=== PATIENT | female | born 1965 ===

== ENCOUNTER → 2019-06-10 13:41 | Outpatient (BNVA) | payer OTHER, SELFPAY | PROVIDERS: Family Provider Internal Medicine; PCP Internal Medicine; Visit Provider Counselor Professional | DX: F31.75 Bipolar disorder, in partial remission, most recent episode depressed; F43.12 Post-traumatic stress disorder, chronic | CPT/HCPCS: 90834 ==

== ENCOUNTER 2019-06-30 14:38 | Outpatient (CLI) | payer OTHER, SELFPAY ==
--- NOTE | 2019-06-30 14:51 | US_ITS ---
WS: [id number] INDICATION: Wilcox's neuroma TECHNIQUE: Ultrasound soft tissue FINDINGS: Hypoechoic 4.6 x 4.0 x 4.3 mm solid-appearing nodule between the third and fourth digits ri ght foot. Findings most likely represent Wilcox's neuroma. US/US soft tissue/extremity 97299 IMPRESSION: Suspected 4.6 mm Wilcox's neuroma between the third and fourth digi ts
== END 2019-06-30 14:39 | disposition home or self-care (01) ==
LOC: RAD 14:41
PROVIDERS: Family Provider Internal Medicine; PCP Internal Medicine; Visit Provider Podiatrist Foot & Ankle Surgery
DX: G57.61 Lesion of plantar nerve, right lower limb (principal); M79.671 Pain in right foot
CPT/HCPCS: 76882

== ENCOUNTER → 2019-07-04 14:42 | Outpatient (BNVA) | payer OTHER, SELFPAY | PROVIDERS: Family Provider Internal Medicine; PCP Internal Medicine; Visit Provider Counselor Professional | DX: F31.32 Bipolar disorder, current episode depressed, moderate (principal); F43.12 Post-traumatic stress disorder, chronic | CPT/HCPCS: 90834 ==

== ENCOUNTER 2019-07-05 16:31 | Outpatient (CLI) | payer OTHER, SELFPAY | END 2019-07-05 16:32 | disposition home or self-care (01) | LOC: SPT 16:32 | PROVIDERS: Family Provider Internal Medicine; PCP Internal Medicine; Visit Provider Podiatrist Foot & Ankle Surgery | DX: G57.61 Lesion of plantar nerve, right lower limb (principal) | CPT/HCPCS: L4361 ==

== ENCOUNTER → 2019-07-08 13:44 | Outpatient (BNVA) | payer OTHER, SELFPAY | PROVIDERS: Family Provider Internal Medicine; PCP Internal Medicine; Visit Provider Nurse Practitioner | DX: F43.12 Post-traumatic stress disorder, chronic (principal); F31.75 Bipolar disorder, in partial remission, most recent episode depressed | CPT/HCPCS: 99214 ==

== ENCOUNTER 2019-07-29 05:41 | Day surgery (SDC) | payer OTHER, SELFPAY ==
[2019-07-28 12:28] VITALS: BMI 26.1
[2019-07-29 06:02] VITALS: BP 139/86; PULSE 69; RESP 18; TEMP 36.4; O2SAT 98
--- NOTE | 2019-07-29 06:17 | ANES.PREANE2 ---
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 Proposed Procedure: Operation Date: 07/29/19 07:00 Proposed Procedures p Excision Wilcox's Neuroma Right 3rd intermetatrsal 94550 G57.61(Right) - Telly Mccormack DPM Familial anesthetic complications: PONV, has had to be admitted overnight because it takes her a long time to wake up from anesthesia Was Beta Sebastien taken within 24 hours: N/A Last intake: Intake NPO > 8 hrs Last Liquid Date 07/28/19 Last Solid Date 07/28/19 Social: Social History: No alcohol and No tobacco Exam: Pre-Anes Outpt Exam: alert, oriented x 3, clear to auscultation bilaterally and regular rate & rhythm Airway: Cervical ROM: WNL MP: 4 Dentition: Full Pulmonary: Pulmonary: None reported CV/HEM: CV/HEM: None reported : : None reported Hepatic: Hepatic: None reported GI: GI: None reported Metabolic: Metabolic: None reported Musc/skel: Comments: tender spot (neuroma) on R foot 3rd metatarsal Neuropsych: Neuropsych: None reported Anesthetic Plan: ASA status: 1 Anesthesia: General and Choice PFSH Anesthesia PFSH: Social History Smoking and tobacco status: former smoker Alcohol intake: never Marital status: Current occupational status: employed Current occupation: [employer] Data Anesthesia Cardiac Studies: No Data to Display
[2019-07-29] MEDS: sodium chloride 0.9% 1,000 ML 30 ML IV (06:23)
--- NOTE | 2019-07-29 06:29 | P.HPUD_ITS ---
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
[2019-07-29] MEDS: scopolamine 1.5 Patch 1 PATCH TRANSDERMA (06:31)
[2019-07-29 07:46] VITALS: BP 120/90; PULSE 69; RESP 18; TEMP 36.4; O2SAT 97
[2019-07-29 08:19] VITALS: BP 143/74; PULSE 69; RESP 18; TEMP 36.4; O2SAT 100
--- NOTE | 2019-07-29 09:55 | PM.OP ---
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 CPT codecpt 17908 Implants: None Specimens removed/disposition: None Pathology: none sent Surgeon: Telly Mccormack D.P.M. Anesthesia: MAC Estimated blood loss: 2 mL Tourniquet time: See intraoperative report IV fluids: None Urine output: None Complications: None Findings: See report Condition: stable Disposition: PACU Brief History: Ms. Connelly is a pleasant 54-year-old female with persistent pain at right foot third intermetatarsal space consistent with Wilcox's neuroma clinically, abnormal findings on ultrasound suggestive of possible Wilcox's neuroma. Conservative care was exhausted consisting of stretching exercises, supportive shoes with wide accommodative toe box, power step orthotics, oral and local steroids and metatarsal pad without relief. Patient wishes to pursue Wilcox's neuroma excision risks include pain, bleeding, numbness, infection, failure to alleviate pain, damage to adjacent soft tissue structures and need for further surgical intervention. She is agreeable wishes to proceed. Obtained written and verbal consent signed right foot preoperatively. Procedure: Under mild sedation the patient was brought to the operating room and placed on the operating table in supine position. A timeout was performed. Anesthesia was administered by anesthesia service. Local anesthesia was injected by myself consisting of 20 cc of 0.5% Marcaine plain and a third ray block. Well-padded pneumatic tourniquet was applied to the right ankle. The right lower extremity was scrubbed, prepped and draped utilizing normal aseptic technique. Right foot was examined a weighted with an Esmarch bandage and a tourniquet was inflated to 250 mmHg. Attention was directed to the right dorsal foot at the third intermetatarsal space where a linear longitudinal incision was made at the webspace coursing proximally with a #15 blade down through skin and dissection carried through subcutaneous tissue utilizing a combination of blunt and sharp technique. Care was taken to retract and preserve neurovascular tendinous structures. Bleeders were ligated and cauterized as necessary. Common third intermetatarsal plantar nerve was identified and noted to be normal appearance without bulbous thickening consistent with neuroma, the also dorsal nerve to this intermetatarsal space was also identified without pathological findings, bifurcation appeared normal as it progressed distally to the digits medially at the fourth toe and laterally at the third toe. Decision was made to not transect the nerve however the intermetatarsal space was compressed, nerves were carefully mobilized and protected followed by a decompression of the third intermetatarsal space with release of the deep transverse intermetatarsal ligament between the third and fourth metatarsal heads with a #15 blade with adjacent soft tissue structures being protected during release. No further pathology found or appreciated. Incision site was flushed with copious amounts of sterile saline solution. Deep structures were reapproximated utilizing 3-0 Vicryl. Subcutaneous tissue also reapproximated utilizing Vicryl. Skin closed with 4-0 nylon. Prior to skin closure subcutaneous tissue was injected utilizing Exparel total of 10 mL utilizing standard technique per physical chemistry professor recommendation. Incision site was dressed with Adaptic, sterile 4 x 4's, Kerlix and Jaspal wrap. Cam boot was applied. Tourniquet was deflated and a prompt hyperemic response was noted to all digits of the right foot distally. Patient tolerated the procedure well and was transferred to the PACU with vital signs stable vascular status intact. Following a period of postoperative monitoring she will be discharged home may be limited weightbearing is to elevate her right foot at all times while at rest. Was prescribed hydrocodone to be taken judiciously as needed for pain. Follow-up in 1 week for nurse visit and dressing change. She is provided my cell phone number and is to contact me with any postoperative questions or concerns.
== END 2019-07-29 10:15 | disposition home or self-care (01) ==
PROVIDERS: Family Provider Internal Medicine; PCP Internal Medicine; Visit Provider Podiatrist Foot & Ankle Surgery
PROC: (CPT 28080; principal; 2019-07-29 07:00)
DX: G57.61 Lesion of plantar nerve, right lower limb (principal); Z87.891 Personal history of nicotine dependence
CPT/HCPCS: 64704; 12345; C9290; J0690; J1100; J2001; J2250; J2405; J2704; J2765; J3010; J3490; J7030

== ENCOUNTER → 2019-08-17 13:43 | Outpatient (BNVA) | payer OTHER, SELFPAY | PROVIDERS: Family Provider Internal Medicine; PCP Internal Medicine; Visit Provider Nurse Practitioner | DX: F31.75 Bipolar disorder, in partial remission, most recent episode depressed (principal); F43.12 Post-traumatic stress disorder, chronic | CPT/HCPCS: 99213 ==

== ENCOUNTER → 2019-09-13 13:54 | Outpatient (BNVA) | payer OTHER, SELFPAY | PROVIDERS: Family Provider Internal Medicine; PCP Internal Medicine; Visit Provider Counselor Professional | DX: F31.75 Bipolar disorder, in partial remission, most recent episode depressed (principal) | CPT/HCPCS: 90832 ==

== ENCOUNTER 2019-10-07 13:37 | Outpatient (CLI) | payer OTHER, SELFPAY ==
--- NOTE | 2019-10-07 13:47 | MM_ITS ---
WS: [id number] DIAGNOSTIC LEFT DIGITAL MAMMOGRAM WITH CAD LEFT breast ultrasound, limited HISTORY: BREAST PAIN BREAST LUMP COMPARISON: 03/21/2019, 09/03/2018, 05/11/2018, 05/16/2016 Technique: CC, MLO and ML views. Spot compression LEFT MLO and cc. Breast composition: The breasts are heterogeneously dense, which may obscure small masses. Biopsy cl ip 3:00 axis of the LEFT breast at the site of the prior biopsy. Triangular marker is placed at the 2 :00 axis anteriorly. There is some underlying soft tissue thickening and mild distortion. Soft tissue thickening and distortion does not persist on the compression views. There is very dense fibroglandu lar breast density at this location. Ultrasound to follow. LEFT breast ultrasound, limited. Ultrasound is directed to 10:00 at 4 cm from the nipple. This is the area of pain. There is a soft ti ssue nodule of mixed echogenicity lesion 1.3 x 1.0 x 1.1 cm. This nodule is 4 cm from the nipple with no significant increased vascularity. Nodule is similar to the prior study of 03/21/2019 and 09/04/19 19. This nodule was biopsied on 09/21/2018 and was benign. MM/[place] [id number] IMPRESSION: BI-RADS: 2-Benign FOLLOW UP: 1 Year Follow-up Patient to return for annual screening mammography and March 2020. As this breast nodule continues to cause pain consider surgical removal for lexis luation of the entire lesion.
--- NOTE | 2019-10-07 13:59 | US_ITS ---
WS: [id number] DIAGNOSTIC LEFT DIGITAL MAMMOGRAM WITH CAD LEFT breast ultrasound, limited HISTORY: BREAST PAIN BREAST LUMP COMPARISON: 03/21/2019, 09/03/2018, 05/11/2018, 05/16/2016 Technique: CC, MLO and ML views. Spot compression LEFT MLO and cc. Breast composition: The breasts are heterogeneously dense, which may obscure small masses. Biopsy cl ip 3:00 axis of the LEFT breast at the site of the prior biopsy. Triangular marker is placed at the 2 :00 axis anteriorly. There is some underlying soft tissue thickening and mild distortion. Soft tissue thickening and distortion does not persist on the compression views. There is very dense fibroglandu lar breast density at this location. Ultrasound to follow. LEFT breast ultrasound, limited. Ultrasound is directed to 10:00 at 4 cm from the nipple. This is the area of pain. There is a soft ti ssue nodule of mixed echogenicity lesion 1.3 x 1.0 x 1.1 cm. This nodule is 4 cm from the nipple with no significant increased vascularity. Nodule is similar to the prior study of 03/21/2019 and 09/04/19 19. This nodule was biopsied on 09/21/2018 and was benign. US/US breast LT limited* [id number] IMPRESSION: BI-RADS: 2-Benign FOLLOW UP: 1 Year Follow-up Patient to return for annual screening mammography and March 2020. As this breast nodule continues to cause pain consider surgical removal for lexis luation of the entire lesion.
== END 2019-10-07 13:38 | disposition home or self-care (01) ==
LOC: RADSHAW 13:41
PROVIDERS: Family Provider Internal Medicine; PCP Internal Medicine; Visit Provider Nurse Practitioner Family
DX: N64.4 Mastodynia (principal); R92.8 Other abnormal and inconclusive findings on diagnostic imaging of breast; N63.0 Unspecified lump in unspecified breast
CPT/HCPCS: 76642; 77065

== ENCOUNTER → 2019-10-17 08:20 | Outpatient (BNVA) | payer OTHER, SELFPAY | PROVIDERS: Family Provider Internal Medicine; Visit Provider Nurse Practitioner | DX: F43.12 Post-traumatic stress disorder, chronic (principal); F31.75 Bipolar disorder, in partial remission, most recent episode depressed | CPT/HCPCS: 99214 ==

== ENCOUNTER → 2019-10-21 08:07 | Outpatient (BNVA) | payer OTHER, SELFPAY | PROVIDERS: Family Provider Internal Medicine; Visit Provider Counselor Professional | DX: F31.75 Bipolar disorder, in partial remission, most recent episode depressed (principal) | CPT/HCPCS: 90832 ==

== ENCOUNTER → 2019-11-23 07:41 | Outpatient (BNVA) | payer OTHER, SELFPAY | PROVIDERS: Family Provider Internal Medicine; Visit Provider Nurse Practitioner | DX: F31.75 Bipolar disorder, in partial remission, most recent episode depressed (principal); F43.12 Post-traumatic stress disorder, chronic | CPT/HCPCS: 99214 ==

== ENCOUNTER → 2019-11-25 07:58 | Outpatient (BNVA) | payer OTHER, SELFPAY | PROVIDERS: Family Provider Internal Medicine; Visit Provider Counselor Professional | DX: F31.75 Bipolar disorder, in partial remission, most recent episode depressed (principal); F43.12 Post-traumatic stress disorder, chronic | CPT/HCPCS: 90832 ==

== ENCOUNTER 2019-11-29 12:45 | Outpatient (CLI) | payer OTHER, SELFPAY ==
[2019-11-29] MEDS: iohexol 300 mg/mL 50 mL Btl PO (13:22)
[2019-11-29] MEDS: iohexol 300 mg/mL 100 mL Btl IV (13:59)
--- NOTE | 2019-11-29 14:30 | CT_ITS ---
WS: [id number] CT ABDOMEN PELVIS TECHNIQUE: Contrast-enhanced CT of the abdomen and pelvis with coronal and sagittal reformatted image s. CLINICAL INFORMATION: ABDOMINAL WALL BULGE COMPARISON: October 05, 2014 DLP: 1087.[address] scans at [facility] use at least one of these dose optimization techniques: automat ed exposure control; mA and/or kV adjustment per patient size (includes targeted exams where dose is matched to clinical indication); or iterative reconstruction. FINDINGS: Mild diffuse fatty infiltration of the liver. Portal vein and splenic vein are patent. Cholecystectom y clips. Normal spleen. Normal pancreas. Pancreas appears normal. Mild prominence of the common bile duct likely physiologic postcholecystectomy. Adrenal glands are normal. Normal renal parenchymal enha ncement. No hydronephrosis. Lung bases are well aerated. Normal caliber abdominal aorta. Mild sigmoid constipation. Fat-containing supraumbilical epigastric h ernia. Small Fat-containing umbilical hernia. No herniated bowel. No abdominal or pelvic lymphadenopa thy. Prior hysterectomy. CT/CT abdomen pelvis w con* [id number] IMPRESSION: 1. Mild diffuse fatty infiltration of the liver. 2. Prior cholecystectomy. 3. No hydronephrosis in either kidney. 4. Fat-containing supraumbilical epigastric hernia with hernia mouth opening m easuring 1.5 cm. No herniated bowel. 5. Incidental supraumbilical fat-containing hernia. 6. No abdominal or pelvic lymphadenopathy. 7. Mild sigmoid constipation. 8. Prior hysterectomy.
== END 2019-11-29 12:46 | disposition home or self-care (01) ==
PROVIDERS: Family Provider Internal Medicine; PCP Internal Medicine; Visit Provider Surgery
DX: R19.00 Intra-abdominal and pelvic swelling, mass and lump, unspecified site (principal); K76.0 Fatty (change of) liver, not elsewhere classified; K43.9 Ventral hernia without obstruction or gangrene; K59.00 Constipation, unspecified
CPT/HCPCS: 74177; Q9967

== ENCOUNTER 2019-12-13 06:57 | Day surgery (SDC) | payer OTHER, SELFPAY ==
[2019-12-13] VITALS (10 sets, daily range): BP systolic 105–148; BP diastolic 54–88; PULSE 62–89; RESP 16–21; TEMP 36.6–37.1; O2SAT 92–100
--- NOTE | 2019-12-13 07:41 | W.PM.OPSUD ---
Surgery/Procedure H&P Update DATE OF PROCEDURE: December 13, 2019 DATE H&P PERFORMED: 12/01/19 H&P UPDATE INFORMATION: I have reviewed H&P completed within last 30 days, I have examined patient prior to procedure and No changes to prior documentation PREOP DIAGNOSIS: Ventral hernia PRIMARY INDICATION FOR PROCEDURE: The same PLANNED PROCEDURE: Operation Date: 12/13/19 08:30 Proposed Procedures p Ventral Hernia Repair (Open) w/ Mesh/61012 K43.9(Not Applicable) - Tai Kohler MD
[2019-12-13] MEDS: sodium chloride 0.9% 1,000 ML 30 ML IV (07:43)
--- NOTE | 2019-12-13 07:51 | P.ANESASSM_ITS ---
Pre-Anesthetic Assessment Pre-Anesthetic Assessment: Height/Weight: Height 1.47 m Weight 58.967 kg Temp Pulse Resp BP Pulse Ox 98.5 F 74 16 148/88 98 12/13/19 07:18 12/13/19 07:18 12/13/19 07:18 12/13/19 07:18 12/13/19 07:18 Preop Diagnosis: Ventral hernia Proposed Procedure: Operation Date: 12/13/19 08:30 Proposed Procedures p Ventral Hernia Repair (Open) w/ Mesh/62560 K43.9(Not Applicable) - Tai Kohler MD Was Beta Sebastien taken within 24 hours: N/A Last intake: Intake Last Liquid Date 12/12/19 Last Liquid Time 20:00 Last Solid Date 12/12/19 Last Solid Time 09:00 Social: Social History: No alcohol and No tobacco Exam: Pre-Anes Outpt Exam: alert, oriented x 3, clear to auscultation bilaterally and regular rate & rhythm Airway: Submandibular: WNL Cervical ROM: WNL MP: 2 Dentition: False History/ROS: No significant history except as noted Pulmonary: Pulmonary: None reported CV/HEM: CV/HEM: None reported : : None reported Hepatic: Hepatic: None reported GI: GI: None reported Metabolic: Metabolic: None reported Musc/skel: Musc/skel: None reported Neuropsych: Neuropsych: Anxiety, Bipolar and Depression Anesthetic Plan: ASA status: 2 Anesthesia: Anesthesia Evaluation and General Risk of > 500 ml blood loss (7ml/kg in children): No Meds/Allergies Current Medications: Current Medications Generic Name Dose Route Start Last Admin Trade Name Freq PRN Reason Stop Dose Admin Sodium Chloride 1,000 mls @ 30 ml s/hr 12/13/19 07:20 12/13/19 07:43 Sodium Chloride 0.9% IV 12/14/19 07:19 30 mls/hr .Q24H PEDRO Administration PFSH Anesthesia PFSH: Medical History Abdominal wall bulge Bipolar disorder, in partial remission, most recent episode depressed Post-traumatic stress disorder, chronic Surgical History H/O foot surgery History of delivery History of cholecystectomy History of hysterectomy History of tubal ligation Family History Sister Cancer Mother Diabetes Denies family history of Anesthesia complication Bleeding disorder Social History Smoking and tobacco status: former smoker Alcohol intake: never Household members: significant other Marital status: Current occupational status: employed Current occupation: [employer] History of recent travel: No Data Anesthesia Cardiac Studies: No Data to Display
[2019-12-13] MEDS: lidocaine 2% INJ 20 mL INJECTION (08:39)
[2019-12-13] MEDS: sodium chloride 0.9% SDV 10 mL 40 ML (09:02)
--- NOTE | 2019-12-13 09:14 | PM.OP ---
Operative Report Date of procedure: December 13, 2019 Pre-op Diagnosis: Ventral hernia Post-op diagnosis: same (Ventral Tongan cheese hernia) Procedure Done: Open ventral hernia repair primarily Specimens removed/disposition: Hernial sac and content Surgeon: Tai Kohler Chief Radiation Therapist: Surgical henrik Cameron Circulating nurses Juaquin Anesthesia: General (radiology assistant Anna) Estimated blood loss (mL): 10 IV fluids (mL): 1,000 Condition: stable Disposition: same day Brief History: This is a pleasant 54 years old female patient presented to my practice with symptomatic ventral hernia, I elected to send the patient for CT scan of the abdomen that showed 2 ventral hernias, after thorough history physical examination and reviewing the chart and images with my personal interpretation I did career and guidance counselor the patient for open hernia repair with possible mesh placement. Patient agreed to proceed Informed consent per chart Procedure: Patient was identified in holding area and the site of the hernia was marked by me ,Patient was brought then to the operating room, general endotracheal anesthesia was administered by the anesthesia provider.prophylactic IV antibiotics were given per protocol Time-out was done verifying the patient's name/date of /planned procedure and destination after the procedure, all were in agreement.SCDs confirmed to be functioning, preoperative antibiotics administered per protocol, and beta sari protocol was confirmed. Patient was given prophylactic heparin subcutaneous prior to surgery Prep and drape of the abdomen was done under the usual sterile technique. I started by Supraumbilical skin incision in a longitudinal fashion, I was able to identify the incarcerated Two ventral hernias and a smaller one caudad, dissection was carried all the way down to the fascia, hernia sac was then opened and the sac was excised in addition to excess omental tissues. Tissues excise sent for permanent pathology I was able to free the overlying fat on top of the fascia, facilitate primary closure,prior to that I did connect all defect so I can close one larger defect better. At that point the fascial defect was about 3 inches in diameter, after freeing all the adhesions, under direct visualization I was able to use loop PDS to repair the defect primarily,thorough irrigation of the wound was then achieved and hemostasis. Exparel was the injected. Bilateral TAP (transversus abdominous plain peripheral nerve block )block using Exparel 20 mL Exparel 40 ml Normal saline 20 ml bupivacaine 0.25% Followed by deep dermal interrupted stitches, followed by 2-0 Vicryl, then skin staple of the skin incision. Dry dressing was done Counts of sponges and instruments were completed at the end of the procedure Patient tolerated the procedure well and was taken to the recovery area in stable condition I was present for the whole entire procedure
[2019-12-13] MEDS: morphine 4 mg/mL SDV 1 mL 2 MG IVP (09:41)
--- NOTE | 2019-12-13 09:46 | SUR.PHASEI ---
0940 pt awake warm blankets x 4 to pt for shivering, pt c/o pain of 3 to abdd see med given, pt now on RA trial.
[2019-12-13] MEDS: HYDROcodone-acetaminophen 5-325 mg Tablet 1 TAB PO (10:20)
== END 2019-12-13 10:54 | disposition home or self-care (01) ==
PROVIDERS: PCP Internal Medicine; Visit Provider Surgery
PROC: 0WQF0ZZ Repair Abdominal Wall, Open Approach (ICD-10-PCS; CPT 49560; principal; 2019-12-13 08:20)
DX: K43.9 Ventral hernia without obstruction or gangrene (principal); Z87.891 Personal history of nicotine dependence
CPT/HCPCS: 49560; 12345; 88302; C9290; J0131; J0690; J2001; J2250; J2270; J2405; J2704; J2710; J3010; J3490; J7030

== ENCOUNTER → 2019-12-29 08:41 | Outpatient (BNVA) | payer OTHER, SELFPAY | PROVIDERS: Family Provider Internal Medicine; Visit Provider Nurse Practitioner | DX: F31.75 Bipolar disorder, in partial remission, most recent episode depressed (principal); F43.12 Post-traumatic stress disorder, chronic | CPT/HCPCS: 99213 ==

== ENCOUNTER → 2020-01-12 13:41 | Outpatient (BNVA) | payer OTHER, SELFPAY | PROVIDERS: Family Provider Internal Medicine; Visit Provider Psychiatry & Neurology Psychiatry | DX: F31.75 Bipolar disorder, in partial remission, most recent episode depressed (principal); Z03.89 Encounter for observation for other suspected diseases and conditions ruled out; F43.12 Post-traumatic stress disorder, chronic | CPT/HCPCS: 80053; 80183; 84443; 99214 ==

== ENCOUNTER → 2020-01-13 14:17 | Outpatient (BNVA) | payer OTHER, SELFPAY | PROVIDERS: Family Provider Internal Medicine; Visit Provider Psychiatry & Neurology Psychiatry | DX: F31.75 Bipolar disorder, in partial remission, most recent episode depressed (principal); Z03.89 Encounter for observation for other suspected diseases and conditions ruled out | CPT/HCPCS: 36415; 84439; 84445; 84480 ==

== ENCOUNTER → 2020-01-16 10:01 | Outpatient (BNVA) | payer OTHER, SELFPAY | PROVIDERS: Family Provider Internal Medicine; Visit Provider Psychiatry & Neurology Psychiatry | DX: F31.89 Other bipolar disorder (principal); F43.12 Post-traumatic stress disorder, chronic | CPT/HCPCS: 99213 ==

== ENCOUNTER 2020-01-21 14:29 | Emergency (ER) | payer OTHER, SELFPAY ==
[2020-01-21 14:47] VITALS: BP 163/90; PULSE 96; RESP 18; TEMP 36.9; O2SAT 96; BMI 27.8
--- NOTE | 2020-01-21 15:10 | W.ED.NEUROSD ---
HPI - Neuro Symptoms/Deficit General: Chief Complaint: Neuro Symptoms/Deficit Stated Complaint: cp Time Seen by Provider: 01/21/20 15:09 History of Present Illness: HPI Narrative: 54-year-old female comes in 6 she has not been feeling well she has left-sided facial numbness and left arm numbness that is been getting progressively worse and started about 2 weeks ago with chest pain she had facial numbness at that time as well explained slowly progressive since then. She is not noticed anything that exacerbates it or relieves it. She is also noticed some stuttering in her speech. She not previously had a stroke. Onset (ago): week(s) (2) Location: speech, left face and left arm History of same: Yes Severity: mild Quality: numb, tingling and intermittent Relieving factors: none Exacerbating factors: none Context: gradual onset Associated symptoms: Reports chest pain; Deny cough, diaphoresis, fevers/chills, headache(s), anorexia, malaise, nausea, seizures, short of breath, syncope, tingling, vertigo, vomiting or weakness Treatments Prior to Arrival: none Review of Systems Const: Denies: malaise or diaphoresis ENMT: Denies: throat pain, ear or mastoid pain, nasal discharge or nasal congestion Card: Reports: chest pain; Denies: syncope Resp: Denies: dyspnea, productive cough or non-productive cough GI: Denies: nausea or vomiting : Denies: flank pain, difficulty voiding, dysuria, urinary frequency or urinary urgency Skin/Breast: Denies: rash or pruritus Neuro: Denies: headache(s) or vertigo PFSH ED PFSH: Medical History Abdominal wall bulge Bipolar disorder, in partial remission, most recent episode depressed Encounter for observation for other suspected diseases and conditions ruled out Post-traumatic stress disorder, chronic Surgical History H/O foot surgery History of delivery History of cholecystectomy History of hysterectomy History of tubal ligation Family History Sister Cancer Mother Diabetes Denies family history of Anesthesia complication Bleeding disorder Social History (Reviewed 01/21/20 @ 16:01 by THANG Villa Smoking and tobacco status: former smoker Alcohol intake: never Household members: significant other Marital status: Current occupational status: employed Current occupation: [employer] History of recent travel: No NIH stroke score NIHSS: Level Of Consciousness - 1a: 0 Level Of Consciousness Questions - 1b: Both Correct Level Of Consciousness Commands - 1c: Both Correct Best Gaze - 2: Normal Visual Dueñas - 3: No Visual Loss Facial Palsy - 4: Normal Motor Arm Right - 5: No Drift Motor Arm Left - 5: No Drift Motor Leg Right - 6: No Drift Motor Leg Left - 6: No Drift Limb Ataxia - 7: Absent Sensory - 8: Mild To Moderate Loss Best Language - 9: No Aphasia Dysarthia - 10: Normal Extinction And Inattention - 11: 0 Score: Total Score: 1 Physical Exam Const: COMMON NORMALS: average body habitus, patient oriented x3 and alert GENERAL APPEARANCE: cooperative, comfortable, well kempt and well developed NUTRITIONAL APPEARANCE: obese ORIENTATION/CONSCIOUSNESS: Yes awake, Yes oriented to person and Yes oriented to place HENMT: COMMON NORMALS: normocephalic and atraumatic HEAD & SCALP: normocephalic and atraumatic Eye: COMMON NORMALS: Equal, round and reactive pupils present, EOMs intact bilaterally, conjunctivae normal and no scleral icterus CONJUNCTIVA: Yes conjunctivae normal PUPIL: Yes Equal, round and reactive pupils present Neck/C-Spine: COMMON NORMALS: full ROM, no lymphadenopathy, supple, no meningeal signs and Thyroid normal THYROID: Thyroid normal and asymmetrical Lymph: LYMPHATIC: no lymphadenopathy noted Resp: COMMON NORMALS: normal respiratory effort, No retractions, No use of accessory muscles and clear to auscultation bilaterally AUSCULTATION: clear to auscultation bilaterally Cardio: COMMON NORMALS: regular rate and regular rhythm RATE: regular rate RHYTHM: regular rhythm HEART SOUNDS: no murmurs GI: COMMON NORMALS: Normal to inspection, nondistended, normoactive bowel sounds present, Soft to palpation and No hepatosplenomegaly present PALPATION: Yes Soft to palpation and Yes No hepatosplenomegaly present : COMMON NORMALS: Yes no CVA tenderness BLADDER/KIDNEY EXAM: Yes no CVA tenderness Back/Pelvis: COMMON NORMALS: no CVA tenderness LUMBAR SPINE/LOWER BACK: Yes normal to inspection Extremity: COMMON NORMALS: no clubbing, cyanosis or edema, no calf tenderness and no pedal edema Neuro: COMMON NORMALS: patient oriented x3 SENSORIUM/ORIENTATION: Yes alert, Yes oriented to person and Yes oriented to place MENINGEAL SIGNS: Yes no meningeal signs Psych: APPEARANCE: Yes well kempt Skin: COMMON NORMALS: no rashes or lesions noted and turgor normal GENERAL SKIN EXAM: no rashes or lesions noted and turgor normal Course Vital Signs: Vital signs: Vital Signs Temperature 98.4 F 01/21/20 14:47 Pulse Rate 95 01/21/20 17:53 Respiratory Rate 17 01/21/20 17:53 Blood Pressure 134/98 01/21/20 17:53 Pulse Oximetry 92 01/21/20 17:53 MDM - Neuro Symptoms/Deficit MDM Narrative: Medical decision making narrative: Her symptoms have resolved although she still feels she is a little bit numb. She has had these symptoms for 2 days over this she is outside of any kind of intervention. Her stroke score is quite low. We will put her on observation discussed with hospitalist. Lab Data: Labs: Lab Results 01/21/20 01/21/20 01/21/20 Range/Units 15:55 15:55 15:55 WBC 6.6 (4.0-10.0) 10^3/ uL RBC 4.93 (4.1-5.3) 10^6/u L Hgb 13.6 (11.5-15.3) g/dL Hct 43.0 (37.0-47.0) % MCV 87.2 (81-99) fL MCH 27.6 L (28.0-34.0) pg MCHC 31.6 (30.0-36.0) g/dL RDW 13.4 (12.1-15.1) % Plt Count 292 (130-400) 10^3/c mm MPV 8.9 (7.4-10.4) fL Neut % (Auto) 57.9 % Lymph % (Auto) 30.3 % [place] % (Auto) 7.1 % Eos % (Auto) 3.6 % Baso % (Auto) 0.5 % Neut # (Auto) 3.85 (1.8-7.7) 10^3/u L Lymph # (Auto) 2.0 (0.8-4.8) 10^3/u L [place] # (Auto) 0.5 (0.2-0.9) 10^3/u L Eos # (Auto) 0.2 (0.0-0.8) 10^3/u L Baso # (Auto) 0.0 (0.0-0.1) 10^3/u L Nucleated RBC % (a uto) 0 % Nucleated RBCs # 0.0 /100WBC PT 12.40 (12.1-14.9) SECO NDS INR 0.89 (0.8-1.2) APTT 29.4 (23.9-36.7) SECO NDS Sodium 142 (136-145) mmol/L Potassium 3.7 (3.5-5.1) mmol/L Chloride 105 (98-107) mmol/L Carbon Dioxide 28 (22-29) mmol/L Anion Gap 12.7 (5-19) BUN 9 (6-20) mg/dL Creatinine 0.7 (0.5-0.9) mg/dL GFR Calculation 87.9 L (90-130) mL/min Glucose 102 (65-115) mg/dL POC Glucose (70-110) mg/dL Calculated Osmolal ity 290 (285-295) mOsm/k g Calcium 9.2 (8.5-10.5) mg/dL Total Bilirubin 0.2 (0.15-1.2) mg/dL AST 22 (0-32) U/L ALT 17 (0-33) U/L Alkaline Phosphata se 114 H (35-105) IU/L Total Protein 7.0 (6.6-8.7) g/dL Albumin 4.2 (3.5-5.2) g/dL Globulin 2.8 (1.3-4.6) g/dL Urine Color (Yellow) Urine Appearance (CLEAR) Urine pH (5-7) Ur Specific Gravit y (1.005-1.030) Urine Protein (Negative) Urine Glucose (UA) (Normal) Urine Ketones (Negative) Urine Blood (Negative) Urine Nitrate (Negative) Urine Bilirubin (NEGATIVE) Urine Urobilinogen (Negative) mg/dL Ur Leukocyte Krista ase (Negative) Urine RBC (0-2) /hpf Urine WBC (0-5) /hpf Ur Squamous Epith Cells (0-5) Amorphous Sediment Urine Bacteria (NONE) Urine Mucus Urine Opiates Scre en (Negative) ng/mL Ur Barbiturates Sc reen (Negative) ng/mL Ur Phencyclidine S crn (Negative) ng/mL Ur Amphetamines Sc reen (Negative) ng/mL U Benzodiazepines Scrn (Negative) ng/mL Urine Cocaine Scre en (Negative) ng/mL U Marijuana (THC) Screen (Negative) ng/mL 01/21/20 01/21/20 01/21/20 Range/Units 15:58 16:07 16:07 WBC (4.0-10.0) 10^3/ uL RBC (4.1-5.3) 10^6/u L Hgb (11.5-15.3) g/dL Hct (37.0-47.0) % MCV (81-99) fL MCH (28.0-34.0) pg MCHC (30.0-36.0) g/dL RDW (12.1-15.1) % Plt Count (130-400) 10^3/c mm MPV (7.4-10.4) fL Neut % (Auto) % Lymph % (Auto) % [place] % (Auto) % Eos % (Auto) % Baso % (Auto) % Neut # (Auto) (1.8-7.7) 10^3/u L Lymph # (Auto) (0.8-4.8) 10^3/u L [place] # (Auto) (0.2-0.9) 10^3/u L Eos # (Auto) (0.0-0.8) 10^3/u L Baso # (Auto) (0.0-0.1) 10^3/u L Nucleated RBC % (a uto) % Nucleated RBCs # /100WBC PT (12.1-14.9) SECO NDS INR (0.8-1.2) APTT (23.9-36.7) SECO NDS Sodium (136-145) mmol/L Potassium (3.5-5.1) mmol/L Chloride (98-107) mmol/L Carbon Dioxide (22-29) mmol/L Anion Gap (5-19) BUN (6-20) mg/dL Creatinine (0.5-0.9) mg/dL GFR Calculation (90-130) mL/min Glucose (65-115) mg/dL POC Glucose 113 (70-110) mg/dL Calculated Osmolal ity (285-295) mOsm/k g Calcium (8.5-10.5) mg/dL Total Bilirubin (0.15-1.2) mg/dL AST (0-32) U/L ALT (0-33) U/L Alkaline Phosphata se (35-105) IU/L Total Protein (6.6-8.7) g/dL Albumin (3.5-5.2) g/dL Globulin (1.3-4.6) g/dL Urine Color Straw (Yellow) Urine Appearance Clear (CLEAR) Urine pH 6 (5-7) Ur Specific Gravit y 1.015 (1.005-1.030) Urine Protein Neg (Negative) Urine Glucose (UA) Norm (Normal) Urine Ketones Negative (Negative) Urine Blood Neg (Negative) Urine Nitrate Negative (Negative) Urine Bilirubin Neg (NEGATIVE) Urine Urobilinogen Norm (Negative) mg/dL Ur Leukocyte Krista ase Trace H (Negative) Urine RBC None (0-2) /hpf Urine WBC 0-4 H (0-5) /hpf Ur Squamous Epith Cells 5-10 H (0-5) Amorphous Sediment Not Reportable Urine Bacteria Trace (NONE) Urine Mucus 1+ Urine Opiates Scre en Negative (Negative) ng/mL Ur Barbiturates Sc reen Negative (Negative) ng/mL Ur Phencyclidine S crn Positive H (Negative) ng/mL Ur Amphetamines Sc reen Negative (Negative) ng/mL U Benzodiazepines Scrn Negative (Negative) ng/mL Urine Cocaine Scre en Negative (Negative) ng/mL U Marijuana (THC) Screen Negative (Negative) ng/mL Discharge Plan Discharge Patient Disposition: Home Clinical Impression: Transient cerebral ischemia Condition: Stable Prescriptions: New Aspirin Childrens 81 mg tablet,chewable 81 mg PO DAILY Qty: 30 RF: 0 No Action hydroxyzine HCl 25 mg tablet 25 mg PO TID PRN (Reason: anxiety) Qty: 90 RF: 1 cyclobenzaprine 10 mg tablet 10 mg PO TID PRN (Reason: muscle spasm) Qty: 30 RF: 2 tramadol 50 mg tablet 50 mg PO Q6H PRN (Reason: pain) Qty: 28 RF: 0 olanzapine 2.5 mg tablet 2.5 mg PO BEDTIME RF: 0 Discharge Orders: Discharge Order (Routine); Ordered 01/21/20 Ordered By: Baldomero Kraus Referrals: MAYI LANDRY DO [Primary Care Provider] - Discharge Diet: Usual diet Discharge Activity: Increase activity as tolerated Activity Restrictions/Additional Instructions: Follow-up with your primary care doctor within the week Discharge Date/Time: 01/21/20 17:53 Coding Level of Care Code ED Orthopedic Shoe Maker for Chg Fwd Exam Comprehensive
[2020-01-21 15:30] VITALS: BP 148/82; PULSE 89; RESP 14; O2SAT 95
--- NOTE | 2020-01-21 15:43 | CTR_ITS ---
PROCEDURE INFORMATION: Exam: CT Head Without Contrast Exam date and time: 01/21/2020 4:02 PM Age: 54 years old Clinical indication: Numbness / parasthesia and speech disturbance; Left; Patient HX: C/O L sided weakness and stutter x 2 days; Additional info: Symptoms of acute stroke TECHNIQUE: Imaging protocol: Computed tomography of the head without contrast. Radiation optimization: All CT scans at this facility use at least one of these dose optimization techniques: automated exposure control; mA and/or kV adjustment per patient size (includes targeted exams where dose is matched to clinical indication); or iterative reconstruction. COMPARISON: No relevant prior studies available. RADIATION DOSE METRICS: Total DLP (mGy-cm): 772.99 FINDINGS: Brain: Normal. No hemorrhage. Unremarkable white matter. No mass effect. Ventricles: Normal. No ventriculomegaly. Bones/joints: Unremarkable. No acute fracture. Sinuses: Visualized sinuses are unremarkable. No fluid levels. Mastoid air cells: Visualized mastoid air cells are well aerated. Soft tissues: Unremarkable. CT/CT head wo con* [id number] IMPRESSION: No acute intracranial abnormality. Radiation Dose CTDIVOL = (mGy): DLP = 772.99 (mGy-cm)
--- NOTE | 2020-01-21 15:43 | ECG_ITS ---
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 Measurements Intervals [place] Rate: 92 P: 39 CT: 144 QRS: -22 QRSD: 86 T: 9 QT: 341 QTc: 423 Interpretive Statements SINUS RHYTHM POSSIBLE ANTERIOR MYOCARDIAL INFARCTION [30 ms Q WAVE IN V3/V4, OR R < 0.2 mV IN V4], PROBABLY OLD Compared to ECG 08/05/2017 12:02:26 Myocardial infarct finding now present Electronically Signed On 01-22-2020 18:10:35 CDT by Marcella Cat M.D. [email or web address] hospital[email or web address].The Personal [employer]/store/[id number] f
--- NOTE | 2020-01-21 15:43 | XRR_ITS ---
PROCEDURE INFORMATION: Exam: XR Chest, 1 View Exam date and time: 01/21/2020 3:45 PM Age: 54 years old Clinical indication: Dyspnea TECHNIQUE: Imaging protocol: XR of the chest Views: 1 view. COMPARISON: CR Chest 2 views* [id number] 08/05/2017 1:44 PM FINDINGS: Lungs: Unremarkable. No consolidation. Calcified granulomas are noted. The vascularity is within normal limits. Pleural space: Unremarkable. No pleural effusion. No pneumothorax. Heart/Mediastinum: Unremarkable. No cardiomegaly. Bones/joints: No acute abnormality. XR/XR chest 1V portable [id number] IMPRESSION: No acute findings.
[2020-01-21 16:04] LABS: Glucose Point of Care 113 mg/dL (70-110)
[2020-01-21 16:06] LABS: Basophils % 0.5 %; Eosinophils # 0.2 10^3/uL (0.0-0.8); Eosinophils % 3.6 %; Hemoglobin 13.6 g/dL (11.5-15.3); Lymphocytes % 30.3 %; Mean Corpuscular HGB Conc 31.6 g/dL (30.0-36.0); Mean Corpuscular Hemoglobin 27.6 pg (28.0-34.0); Mean Corpuscular Volume 87.2 fL (81-99); Mean Platelet Volume 8.9 fL (7.4-10.4); Monocytes # 0.5 10^3/uL (0.2-0.9); Monocytes % 7.1 %; Neutrophils # 3.85 10^3/uL (1.8-7.7); Neutrophils % 57.9 %; Nucleated Red Blood Cells % 0 %; Platelet Count 292 10^3/cmm (130-400); Red Blood Count 4.93 10^6/uL (4.1-5.3); Red Cell Distribution Width 13.4 % (12.1-15.1); White Blood Count 6.6 10^3/uL (4.0-10.0)
[2020-01-21 16:22] LABS: INR 0.89 (0.8-1.2)
[2020-01-21 16:24] LABS: Partial Thromboplastin Time 29.4 SECONDS (23.9-36.7)
[2020-01-21 16:28] LABS: Alanine Aminotransferase 17 U/L (0-33); Albumin Level 4.2 g/dL (3.5-5.2); Alkaline Phosphatase 114 IU/L (35-105); Anion Gap 12.7 (5-19); Aspartate Amino Transferase 22 U/L (0-32); Blood Urea Nitrogen 9 mg/dL (6-20); Calcium 9.2 mg/dL (8.5-10.5); Carbon Dioxide 28 mmol/L (22-29); Chloride 105 mmol/L (98-107); Globulin 2.8 g/dL (1.3-4.6); Glomerular Filtration Rate 87.9 mL/min (90-130); Glucose 102 mg/dL (65-115); Osmolality Calculated 290 mOsm/kg (285-295); Potassium 3.7 mmol/L (3.5-5.1); Sodium 142 mmol/L (136-145); Total Bilirubin 0.2 mg/dL (0.15-1.2)
[2020-01-21 17:14] LABS: Add Urine Microscopic? YES; Bilirubin Urine Neg (NEGATIVE); Blood Urine Neg (Negative); Glucose Urine UA Norm (Normal); Ketones Urine Negative (Negative); Leukocyte Esterase Urine Trace (Negative); Nitrate Urine Negative (Negative); Protein Urine Neg (Negative); Specific Gravity, Urine 1.015 (1.005-1.030); Urine Appearance Clear (CLEAR); Urine Color Straw (Yellow); Urobilinogen Urine Norm (Negative); pH Urine 6 (5-7)
[2020-01-21 17:18] LABS: Add Urine Culture? No; Amphetamines Screen Urine Negative (Negative); Bacteria Urine TRACE; Barbiturates Screen Urine Negative (Negative); Benzodiazepines Screen Urine Negative (Negative); Cocaine Screen Urine Negative (Negative); Mucus Urine 1+; Opiate Screen Urine Negative (Negative); PCP Screen Urine Positive (Negative); THC Screen Urine Negative (Negative); WBC Urine 0-4 /hpf (0-5)
[2020-01-21 17:53] VITALS: BP 134/98; PULSE 95; RESP 17; O2SAT 92
== END 2020-01-21 17:53 | disposition home or self-care (01) ==
PROVIDERS: Emergency Provider Family Medicine; PCP Internal Medicine
DX: G45.9 Transient cerebral ischemic attack, unspecified (principal); Z87.891 Personal history of nicotine dependence
CPT/HCPCS: 12345; 36415; 36416; 70450; 71045; 80053; 80306; 81001; 82962; 85025; 85610; 85730; 93005; 99283; 99284

== ENCOUNTER → 2020-02-03 09:10 | Outpatient (BNVA) | payer OTHER, SELFPAY | PROVIDERS: PCP Internal Medicine; Visit Provider Psychiatry & Neurology Psychiatry | DX: F43.12 Post-traumatic stress disorder, chronic (principal); F31.75 Bipolar disorder, in partial remission, most recent episode depressed; Z79.899 Other long term (current) drug therapy; Z72.820 Sleep deprivation | CPT/HCPCS: 80306; 99214 ==

== ENCOUNTER → 2020-02-24 13:41 | Outpatient (BNVA) | payer OTHER, SELFPAY | PROVIDERS: PCP Internal Medicine; Visit Provider Psychiatry & Neurology Psychiatry | DX: F41.9 Anxiety disorder, unspecified (principal); F43.12 Post-traumatic stress disorder, chronic; F31.75 Bipolar disorder, in partial remission, most recent episode depressed; Z72.820 Sleep deprivation | CPT/HCPCS: 99214 ==

== ENCOUNTER → 2020-03-02 13:43 | Outpatient (BNVA) | payer OTHER, SELFPAY | PROVIDERS: PCP Internal Medicine; Visit Provider Psychiatry & Neurology Psychiatry | DX: F31.75 Bipolar disorder, in partial remission, most recent episode depressed (principal); F41.9 Anxiety disorder, unspecified | CPT/HCPCS: 99213 ==

== ENCOUNTER → 2020-03-13 08:39 | Outpatient (BNVA) | payer OTHER, SELFPAY | PROVIDERS: PCP Internal Medicine; Visit Provider Psychiatry & Neurology Psychiatry | DX: F31.9 Bipolar disorder, unspecified (principal) | CPT/HCPCS: 99214 ==

== ENCOUNTER 2020-03-22 17:32 | Observation (INO) | payer OTHER, SELFPAY ==
[2020-03-22 17:47] VITALS: BP 163/101; PULSE 85; RESP 16; TEMP 36.9; O2SAT 97; BMI 28.8
--- NOTE | 2020-03-22 18:17 | CTR_ITS ---
PROCEDURE INFORMATION: Exam: CT Head Without Contrast Exam date and time: 03/22/2020 6:23 PM Age: 55 years old Clinical indication: Weakness, facial; Patient HX: Left side facial numbness; Additional info: CVA TECHNIQUE: Imaging protocol: Computed tomography of the head without contrast. Radiation optimization: All CT scans at this facility use at least one of these dose optimization techniques: automated exposure control; mA and/or kV adjustment per patient size (includes targeted exams where dose is matched to clinical indication); or iterative reconstruction. COMPARISON: CT head wo con* [id number] 01/21/2020 3:57 PM RADIATION DOSE METRICS: Total DLP (mGy-cm): 768.77 FINDINGS: Brain: Normal. No hemorrhage. Unremarkable white matter. No mass effect. Cerebral ventricles: No ventriculomegaly. Bones/joints: Unremarkable. No acute fracture. Paranasal sinuses: Visualized sinuses are unremarkable. No fluid levels. Mastoid air cells: Visualized mastoid air cells are well aerated. Soft tissues: Unremarkable. CT/CT head wo con* [id number] IMPRESSION: 1. No acute intracranial abnormality. 2. ASPECTS score: 10 Radiation Dose CTDIVOL = (mGy): DLP = 768.77 (mGy-cm)
--- NOTE | 2020-03-22 18:19 | ECG_ITS ---
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 Measurements Intervals [place] Rate: 70 P: 28 HI: 146 QRS: -8 QRSD: 94 T: 8 QT: 367 QTc: 397 Interpretive Statements SINUS RHYTHM POSSIBLE ANTERIOR MYOCARDIAL INFARCTION , PROBABLY OLD [30 ms Q WAVE IN V3/V4, OR R < 0.2 mV IN V4] Compared to ECG 01/21/2020 14:57:25 No significant changes Electronically Signed On 03-23-2020 18:07:06 CDT by Yodit Nunez M.D. [id number]
[2020-03-22 20:41] LABS: Basophils # 0.1 10^3/uL (0.0-0.1); Basophils % 0.6 %; Eosinophils # 0.4 10^3/uL (0.0-0.8); Eosinophils % 4.6 %; Hematocrit 40.9 % (37.0-47.0); Hemoglobin 13.1 g/dL (11.5-15.3); Lymphocytes # 2.1 10^3/uL (0.8-4.8); Lymphocytes % 23.5 %; Mean Corpuscular Hemoglobin 28.2 pg (28.0-34.0); Mean Platelet Volume 8.8 fL (7.4-10.4); Monocytes # 0.6 10^3/uL (0.2-0.9); Neutrophils # 5.69 10^3/uL (1.8-7.7); Nucleated Red Blood Cells % 0 %; Platelet Count 276 10^3/cmm (130-400); Red Blood Count 4.65 10^6/uL (4.1-5.3); Red Cell Distribution Width 13.4 % (12.1-15.1); White Blood Count 8.9 10^3/uL (4.0-10.0)
[2020-03-22 21:07] LABS: Alanine Aminotransferase 19 U/L (0-33); Albumin Level 4.5 g/dL (3.5-5.2); Alkaline Phosphatase 125 IU/L (35-105); Aspartate Amino Transferase 22 U/L (0-32); Blood Urea Nitrogen 12 mg/dL (6-20); Calcium 9.6 mg/dL (8.5-10.5); Carbon Dioxide 27 mmol/L (22-29); Chloride 96 mmol/L (98-107); Globulin 2.8 g/dL (1.3-4.6); Glucose 110 mg/dL (65-115); Osmolality Calculated 274 mOsm/kg (285-295); Sodium 132 mmol/L (136-145); Total Bilirubin 0.2 mg/dL (0.15-1.2); Total Protein 7.3 g/dL (6.6-8.7)
[2020-03-22 21:38] VITALS: BP 180/87; PULSE 75; RESP 16; O2SAT 96
--- NOTE | 2020-03-22 21:40 | ED_ITS ---
HPI - Neuro Symptoms/Deficit General: Chief Complaint: Neuro Symptoms/Deficit Stated Complaint: L SIDE OF FACE NUMB/TINGLING/ THINKGS STROKE Time Seen by Provider: 03/22/20 21:29 Source: patient Mode of arrival: ambulatory Limitations: no limitations History of Present Illness: HPI Narrative: Alanna is a very nice 55-year-old female who comes in complaining of left-sided facial numbness, arm numbness and arm heaviness. The patient states that she woke up with the symptoms this morning but they were primarily in her face. As the day has gone on to have gotten progressively worse and have spread to her arm and leg. She states she feels tingling but also a true numbness when touched on the left side. She also states that her left arm feels heavy. She denies any chest pain, shortness of breath, headache or other complaint. Patient states she had similar complaints back in January but only in her face. She states she was seen at [facility] and ultimately transferred to [facility] and told that she had a TIA. She takes aspirin daily but no other antiplatelet agents. Associated symptoms: Deny chest pain, diaphoresis, headache(s), malaise, nausea, syncope, vertigo or vomiting Review of Systems Const: Denies: fever(s), chills, body aches, fatigue, malaise or diaphoresis Eyes: Denies: change in vision, blurry vision, photophobia, eye discomfort, eye discharge, eye redness or yellow eyes ENMT: Denies: throat pain, odynophagia, hoarseness, swelling of lips/tongue, ear or mastoid pain, ear discharge, change in hearing or nasal discharge Card: Denies: chest pain, palpitations, irregular heart rhythm, edema, lightheadedness, syncope, pre-syncope, dyspnea on exertion or orthopnea Resp: Denies: dyspnea, productive cough, non-productive cough, wheezing, hemoptysis or chest congestion GI: Denies: abdominal pain, nausea, vomiting, hematemesis, coffee ground emesis, heartburn, diarrhea, constipation, GI cramping, hematochezia or melena : Denies: flank pain, dysuria, urinary frequency, urinary urgency or hematuria Musc: Denies: neck pain, back pain, extremity pain, extremity swelling, joint pain, joint swelling, joint redness, joint warmth or joint stiffness Skin/Breast: Denies: rash, pruritus, erythema, skin pain or skin tenderness Neuro: Reports: numbness in extremities, weakness in extremities and sensory changes; Denies: headache(s), lack of coordination, difficulty walking, dizziness, vertigo, confusion, Slurred speech present or seizure-like activity Enrique/Lymph: Denies: easy bruising, easy bleeding, petechiae, purpura or enlarged lymph nodes All/Imm: Denies: urticaria, throat swelling, tongue swelling, facial swelling or acute wheezing PFSH ED PFSH: Medical History Abdominal wall bulge Anxiety Bipolar disorder with psychotic features Bipolar disorder, in partial remission, most recent episode depressed Encounter for observation for other suspected diseases and conditions ruled out Post-traumatic stress disorder, chronic Problems related to lack of adequate sleep TIA (transient ischemic attack) Surgical History H/O foot surgery History of delivery History of cholecystectomy History of hysterectomy History of tubal ligation Family History Sister Cancer Mother Diabetes Denies family history of Anesthesia complication Bleeding disorder Social History Smoking and tobacco status: former smoker Alcohol intake: never Household members: significant other Marital status: Current occupational status: employed Current occupation: [employer] History of recent travel: No NIH stroke score NIHSS: Level Of Consciousness - 1a: 0 Level Of Consciousness Questions - 1b: Both Correct Level Of Consciousness Commands - 1c: Both Correct Best Gaze - 2: Normal Visual Dueñas - 3: Partial Hemianopia Facial Palsy - 4: Normal Motor Arm Right - 5: No Drift Motor Arm Left - 5: No Drift Motor Leg Right - 6: No Drift Motor Leg Left - 6: Drift Limb Ataxia - 7: Present In One Limb Sensory - 8: Mild To Moderate Loss Best Language - 9: No Aphasia Dysarthia - 10: Normal Extinction And Inattention - 11: 0 Score: Total Score: 4 Physical Exam Const: COMMON NORMALS: no acute distress, patient oriented x3, no limitations and alert GENERAL APPEARANCE: cooperative HENMT: COMMON NORMALS: normocephalic, atraumatic, external ears normal, EAC's normal and Normal external nose present HEAD & SCALP: normal to inspection, normocephalic and atraumatic FACE & SINUS: normal facial exam and face symmetric NOSE: Normal external nose present and Normal nares present EXTERNAL EAR: Yes external ears normal EXTERNAL AUDITORY CANAL: EAC's normal MOUTH: Normal oral and palatal mucosa present, lip normal and tongue normal Eye: COMMON NORMALS: Equal, round and reactive pupils present and conjunctivae normal GENERAL EYE: appearance normal, both eyes and all related structures ALIGNMENT: Yes alignment normal PERIORBITAL: periorbital findings normal EYELID: eyelids normal CONJUNCTIVA: Yes conjunctivae normal SCLERA: sclerae normal PUPIL: Yes Equal, round and reactive pupils present Neck/C-Spine: COMMON NORMALS: full ROM, no lymphadenopathy, supple, no meningeal signs and no JVD GENERAL: Yes normal visual inspection and Yes trachea midline Chest: COMMONS NORMALS: normal inspection of the chest and normal palpation of entire chest wall Resp: COMMON NORMALS: normal respiratory effort, No retractions, No use of accessory muscles and clear to auscultation bilaterally EFFORT & INSPECTION: Yes able to speak in complete sentences and Yes symmetric chest movement AUSCULTATION: clear to auscultation bilaterally, no crackles, no rales, no rhonchi and no wheezes Cardio: COMMON NORMALS: no JVD, regular rate, regular rhythm, S1 normal heart sound present and S2 normal heart sound present RATE: regular rate RHYTHM: regular rhythm HEART SOUNDS: S1 normal heart sound present, S2 normal heart sound present, no click, no gallops, no murmurs and no rubs GI: COMMON NORMALS: Soft to palpation and No hepatosplenomegaly present PALPATION: Yes Soft to palpation, No Tenderness to palpation present (GI), No Guarding due to palpation present (GI), No Rigid due to palpation, Yes No hepatosplenomegaly present, No Hernia present, No Palpable mass present and No Pulsatile mass present : COMMON NORMALS: Yes no CVA tenderness BLADDER/KIDNEY EXAM: Yes no CVA tenderness EXTERNAL FEMALE EXAM: No Hernia present Back/Pelvis: COMMON NORMALS: no CVA tenderness, thoracic and lumbar spine normal to inspection, no thoracic nor lumbar tenderness and thoraco-lumbar ROM normal Extremity: COMMON NORMALS: normal to inspection, full ROM, capillary refill normal, no joint enlargement, no clubbing, cyanosis or edema and no calf tenderness Neuro: COMMON NORMALS: patient oriented x3 and moves all extremities SENSORIUM/ORIENTATION: Yes alert MENINGEAL SIGNS: Yes no meningeal signs SPEECH: speech normal Psych: COMMON NORMALS: mental status grossly normal, Normal thought process present, cooperative, normal affect, speech normal and activity/motor behavior normal SPEECH: Yes normal speech THOUGHT PROCESS: Normal thought process present Skin: COMMON NORMALS: no rashes or lesions noted, turgor normal, no jaundice, no petechiae and no mottling GENERAL SKIN EXAM: no rashes or lesions noted and turgor normal Course Vital Signs: Vital signs: Vital Signs Temperature 98.4 F 03/22/20 17:47 Pulse Rate 75 03/22/20 21:38 Respiratory Rate 16 03/22/20 21:38 Blood Pressure 180/87 03/22/20 21:38 Pulse Oximetry 96 03/22/20 21:38 MDM - Neuro Symptoms/Deficit MDM Narrative: Medical decision making narrative: The case was endorsed to Dr. Santos, he agrees to admit for CVA. The patient has presented outside of the window for TPA as well as for any intervention. Her NIH is less than 6 so she should would not be a candidate for intervention as well. This appears to be more likely posterior type of CVA. I have sent for her old records from [facility] to see what work-up was performed previously. The patient at this time does agree to admission. I will allow Dr. Santos to decide if he wants to add Plavix this evening or perform further work-up. Lab Data: Attestation: I reviewed the patient's lab results. Labs: Lab Results 03/22/20 03/22/20 03/22/20 Range/Units 20:25 20:25 20:25 WBC 8.9 (4.0-10.0) 10^3/ uL RBC 4.65 (4.1-5.3) 10^6/u L Hgb 13.1 (11.5-15.3) g/dL Hct 40.9 (37.0-47.0) % MCV 88.0 (81-99) fL MCH 28.2 (28.0-34.0) pg MCHC 32.0 (30.0-36.0) g/dL RDW 13.4 (12.1-15.1) % Plt Count 276 (130-400) 10^3/c mm MPV 8.8 (7.4-10.4) fL Neut % (Auto) 64.0 % Lymph % (Auto) 23.5 % [place] % (Auto) 7.0 % Eos % (Auto) 4.6 % Baso % (Auto) 0.6 % Neut # (Auto) 5.69 (1.8-7.7) 10^3/u L Lymph # (Auto) 2.1 (0.8-4.8) 10^3/u L [place] # (Auto) 0.6 (0.2-0.9) 10^3/u L Eos # (Auto) 0.4 (0.0-0.8) 10^3/u L Baso # (Auto) 0.1 (0.0-0.1) 10^3/u L Nucleated RBC % (a uto) 0 % Nucleated RBCs # 0.0 /100WBC Sodium 132 L (136-145) mmol/L Potassium 4.0 (3.5-5.1) mmol/L Chloride 96 L (98-107) mmol/L Carbon Dioxide 27 (22-29) mmol/L Anion Gap 13.0 (5-19) BUN 12 (6-20) mg/dL Creatinine 0.8 (0.5-0.9) mg/dL GFR Calculation 75.0 L (90-130) mL/min Glucose 110 (65-115) mg/dL Calculated Osmolal ity 274 L (285-295) mOsm/k g Calcium 9.6 (8.5-10.5) mg/dL Total Bilirubin 0.2 (0.15-1.2) mg/dL AST 22 (0-32) U/L ALT 19 (0-33) U/L Alkaline Phosphata se 125 H (35-105) IU/L Troponin T Gen 5 n g/L 17 H (0-10) ng/L Total Protein 7.3 (6.6-8.7) g/dL Albumin 4.5 (3.5-5.2) g/dL Globulin 2.8 (1.3-4.6) g/dL Imaging Data^: CT Head: Radiologist's impression: [address] [address] [address] Scan Report Signed with Enedina Patient: Alanna Connelly Unit #: [id number] : 1965 Age/Sex: 55 / F ADM Date: 03/22/20 Loc: ER Room/Bed: Attending Dr: Ordering Provider/Ordering MD: Enriqueta Thomas MD Date of Service: 03/22/20 Procedure(s): CT head wo con* [id number] Accession Number(s): [id number] Report Number: [id number]/CT head wo con* [id number] THIS REPORT CONTAINS FINDINGS THAT MAY BE CRITICAL TO PATIENT CARE. The findings were verbally communicated via telephone conference with enriqueta Thomas at 6:49 PM CDT on 03/22/2020. The findings were acknowledged and understood. Radiation Dose CTDIVOL = (mGy): DLP = 768.77 (mGy-cm) Addendum Dictated By: Matt Monroy Addendum Signed By: Matt Monroy Signed Date/Time: 03/22/20 185 0 Addendum Cosigned By: PROCEDURE INFORMATION: Exam: CT Head Without Contrast Exam date and time: 03/22/2020 6:23 PM Age: 55 years old Clinical indication: Weakness, facial; Patient HX: Left side facial numbness; Additional info: CVA TECHNIQUE: Imaging protocol: Computed tomography of the head without contrast. Radiation optimization: All CT scans at this facility use at least one of these dose optimization techniques: automated exposure control; mA and/or kV adjustment per patient size (includes targeted exams where dose is matched to clinical indication); or iterative reconstruction. COMPARISON: CT head wo con* [id number] 01/21/2020 3:57 PM RADIATION DOSE METRICS: Total DLP (mGy-cm): 768.77 FINDINGS: Brain: Normal. No hemorrhage. Unremarkable white matter. No mass effect. Cerebral ventricles: No ventriculomegaly. Bones/joints: Unremarkable. No acute fracture. Paranasal sinuses: Visualized sinuses are unremarkable. No fluid levels. Mastoid air cells: Visualized mastoid air cells are well aerated. Soft tissues: Unremarkable. CT/CT head wo con* [id number] IMPRESSION: 1. No acute intracranial abnormality. 2. ASPECTS score: 10 Radiation Dose CTDIVOL = (mGy): DLP = 768.77 (mGy-cm) Dictated By: Matt Monroy Signed By: Matt Monroy Signed Date/Time: 03/22/201838 DD/ 36 EKG Data^: EKG 1: Attestation: I personally reviewed and interpreted this EKG as follows: EKG interpretation date: 03/22/20 EKG interpretation time: 21:24 Interpretation: Normal sinus rhythm at 70 beats a minute, deviation, left anterior fascicular block, normal intervals, no acute ST-T wave changes. Discharge Plan Discharge Patient Disposition: Placed in Observation Clinical Impression: Cerebrovascular accident Condition: Stable Prescriptions: No Action olanzapine 10 mg tablet 10 mg PO .qhs 30 Days Qty: 30 RF: 3 paroxetine HCl 40 mg tablet 40 mg PO DAILY 30 Days Qty: 30 RF: 3 cyclobenzaprine 10 mg tablet 10 mg PO TID PRN (Reason: muscle spasm) Qty: 30 RF: 2 clonazepam 0.5 mg tablet 0.25 mg PO BID PRN (Reason: anxiety or panic or sleep) 30 Days Qty: 30 RF: 1 oxcarbazepine 300 mg tablet 300 mg PO BID 30 Days Qty: 60 RF: 3 Aspirin Childrens 81 mg tablet,chewable 81 mg PO DAILY Qty: 30 RF: 0 Referrals: Shanika Billy DO [Primary Care Provider] - Coding Level of Care Code ED Accountant Tax for Chg Gasper
[2020-03-22 22:03] LABS: Troponin T (5th) Once 17 ng/L (0-10)
--- NOTE | 2020-03-22 22:09 | CTR_ITS ---
PROCEDURE INFORMATION: Exam: CT Angiography Head With Contrast Exam date and time: 03/22/2020 10:42 PM Age: 55 years old Clinical indication: Numbness; Additional info: CVA TECHNIQUE: Imaging protocol: Computed tomography angiography of the head with intravenous contrast. 3D rendering (Not supervised by radiologist): MIP and/or 3D reconstructed images were created by the technologist. Radiation optimization: All CT scans at this facility use at least one of these dose optimization techniques: automated exposure control; mA and/or kV adjustment per patient size (includes targeted exams where dose is matched to clinical indication); or iterative reconstruction. Contrast material: OMNI 350; Contrast volume: 95 ml; Contrast route: INTRAVENOUS (IV); COMPARISON: CT head wo con* [id number] 03/22/2020 6:23 PM RADIATION DOSE METRICS: Total DLP (mGy-cm): 2041.02 FINDINGS: ANTERIOR CIRCULATION: Right internal carotid artery: Unremarkable. Intracranial segment is patent with no significant stenosis. No aneurysm. Right middle cerebral artery: Unremarkable. No occlusion or significant stenosis. No aneurysm. Right anterior cerebral artery: Unremarkable. No occlusion or significant stenosis. No aneurysm. Left internal carotid artery: Unremarkable. Intracranial segment is patent with no significant stenosis. No aneurysm. Left middle cerebral artery: Unremarkable. No occlusion or significant stenosis. No aneurysm. Left anterior cerebral artery: Absent A1 segment, A2 segment supplied by the RONALDO. No occlusion or significant stenosis. No aneurysm. POSTERIOR CIRCULATION: Right vertebral artery: Unremarkable. No occlusion or significant stenosis. No aneurysm. Left vertebral artery: Unremarkable. No occlusion or significant stenosis. No aneurysm. Basilar artery: Unremarkable. No occlusion or significant stenosis. No aneurysm. Right posterior cerebral artery: Unremarkable. No occlusion or significant stenosis. No aneurysm. Left posterior cerebral artery: Unremarkable. No occlusion or significant stenosis. No aneurysm. Brain: No definite mass, mass effect, or midline shift. Cerebral ventricles: Normal. No ventriculomegaly. Bones/joints: Unremarkable. No acute fracture. Soft tissues: Unremarkable. IMPRESSION: No large vessel stenosis or occlusion. PROCEDURE INFORMATION: Exam: CT Angiography Neck With Contrast Exam date and time: 03/22/2020 10:42 PM Age: 55 years old Clinical indication: Numbness; Additional info: CVA TECHNIQUE: Imaging protocol: Computed tomography angiography of the neck with intravenous contrast. 3D rendering (Not supervised by radiologist): MIP and/or 3D reconstructed images were created by the technologist. Radiation optimization: All CT scans at this facility use at least one of these dose optimization techniques: automated exposure control; mA and/or kV adjustment per patient size (includes targeted exams where dose is matched to clinical indication); or iterative reconstruction. Contrast material: OMNI 350; Contrast volume: 95 ml; Contrast route: INTRAVENOUS (IV); COMPARISON: CT head wo con* [id number] 03/22/2020 6:23 PM RADIATION DOSE METRICS: Total DLP (mGy-cm): 2041. FINDINGS: Right common carotid artery: No stenosis. No dissection or occlusion. Right internal carotid artery: No stenosis of the extracranial segment. No dissection or occlusion. Right external carotid artery: No occlusion or stenosis of the origin. Right vertebral artery: No stenosis. No dissection or occlusion. Left common carotid artery: No stenosis. No dissection or occlusion. Left internal carotid artery: No stenosis of the extracranial segment. No dissection or occlusion. Left external carotid artery: No occlusion or stenosis of the origin. Left vertebral artery: No stenosis. No dissection or occlusion. Bones/joints: No acute fracture. Soft tissues: Normal. No significant soft tissue swelling. CT/CT angio headneck* [id number] IMPRESSION: No stenosis or occlusion. REFERENCES: NASCET CRITERIA. The degree of internal carotid artery stenosis is based on NASCET criteria. Normal is no stenosis. Mild is less than 50% stenosis. Moderate is 50-69% stenosis. Severe is 70% to 99% stenosis. Total occlusion is no detectable patent lumen. Radiation Dose CTDIVOL = (mGy): DLP = 2041.~2041. (mGy-cm)
--- NOTE | 2020-03-22 22:10 | P.HP_ITS ---
Providers/Chief Complaint Primary Care Provider: Shanika Billy DO Chief Complaint: L SIDE OF FACE NUMB/TINGLING/ THINKGS STROKE History of Present Illness Alanna Connelly is a 55 year old female who had an episode of TIA in January for which she was started on aspirin, coming in today for chief complaint of left-sided facial numbness numbness tingling of extremities. Patient is stating that she went to bed around 9 PM yesterday, she did not experience any symptoms at that time, when she woke up next day he started experiencing left-sided facial numbness, she was experiencing slurring of her speech she waited until afternoon and hope of her symptoms getting better, around 3 PM she started experiencing numbness extending from her face and going towards her neck area which prompted her to come to the hospital. She is also endorsing slurring of speech but denying aspiration on food, falls, palpitations, fever, vomiting. She is denying blurry vision, she also noticed her gait was abnormal, she was feeling dizzy as well. No previous history of CVA, A. fib, [place], CHF. Of note she had similar complaints in January for which she was evaluated at [facility] when she [facility] to [facility] ER, her investigations were unremarkable, she was discharged home on aspirin 81 mg daily. Diagnosis in the ER revealed normal hemodynamics, CT head unremarkable, NIH 4, not a candidate of TPA, hospital service is requested to admit because of recurrent TIAs, aspirin, Plavix high-dose statin have been initiated, at the time my evaluation NIH is 0 Review of Systems Const: Reports: body aches and fatigue; Denies: fever(s) Eyes: Denies: change in vision ENMT: Denies: throat pain Card: Denies: chest pain Resp: Denies: dyspnea GI: Denies: abdominal pain : Denies: flank pain Musc: Denies: neck pain Skin/Breast: Denies: rash Neuro: Reports: headache(s), numbness in extremities and dizziness Psych: Reports: anxiety Endo: Denies: polyuria Enrique/Lymph: Denies: easy bruising All/Imm: Denies: urticaria Medications/Allergies Home Medications Medication Instructions Recorded Confirmed Last Taken Type cyclobenzaprine 10 mg tablet 10 mg PO TID PRN #30 tab 12/14/19 03/02/20 01/21/20 Rx aspirin [Aspirin Childrens] 81 mg PO DAILY #30 tab 01/21/20 03/02/20 Unknown Rx paroxetine HCl 40 mg tablet 40 mg PO DAILY 30 Days #30 tab 02/03/20 03/02/20 Unknown Rx clonazepam 0.5 mg tablet 0.25 mg PO BID PRN 30 Days #30 tab 03/07/20 Unknown Rx oxcarbazepine 300 mg tablet 300 mg PO BID 30 Days #60 tab 03/07/20 Unknown Rx olanzapine 10 mg tablet 10 mg PO .qhs 30 Days #30 tab 03/13/20 03/13/20 Unknown Rx Allergies Allergy/AdvReac Type Severity Reaction Status Date / Time diphenhydramine Allergy Intermediate ADR-Drowsy Verified 02/24/20 13:46 [From Benadryl] bee venom protein (honey bee) Allergy ALGY-Joint Verified 02/24/20 13:46 Pain PFSH Acute PFSH: Medical History Abdominal wall bulge Anxiety Bipolar disorder with psychotic features Bipolar disorder, in partial remission, most recent episode depressed Encounter for observation for other suspected diseases and conditions ruled out Post-traumatic stress disorder, chronic Problems related to lack of adequate sleep TIA (transient ischemic attack) Surgical History H/O foot surgery History of delivery History of cholecystectomy History of hysterectomy History of tubal ligation Family History Sister Cancer Mother Diabetes Denies family history of Anesthesia complication Bleeding disorder Social History Smoking and tobacco status: former smoker Alcohol intake: never Household members: significant other Marital status: Current occupational status: employed Current occupation: [employer] History of recent travel: No Vitals/I&O/Wt Last Vital Signs Temp 98.4 F 03/22/20 17:47 Pulse 75 03/22/20 21:38 Resp 16 03/22/20 21:38 BP 180/87 03/22/20 21:38 Pulse Ox 96 03/22/20 21:38 Weight last 48 hrs Weight 62.596 kg Physical Exam Narrative: EXAM NARRATIVE: Patient is lying comfortable at the time my evaluation, She is denying in her bed without any active distress Saturating well on room air NIH score 0 No cerebellar signs No neurological deficit, no facial asymmetry, no slurring of speech She has good strength in all over her extremities However only positive finding I have discovered is brisk reflexes of lower extremities bilaterally Sensations intact, EOMI, PERRLA, No visual deficit S1, S2 Euvolemic Abdomen soft nontender bowel sound present Lungs are clear to auscultation Appropriate mood and affect Skin without any ulcers Data : 03/22/20 20:25 03/22/20 20:25 A&P Assessment and plan (1) TIA (transient ischemic attack): Recurrent TIAs ABCD2 score 3 Second visit with similar complaints in 90 days, necessitating further evaluation Current NIH score 0, in the ED ER physician considered NIH 4, symptoms started 24 hours ago Normal hemodynamics, CT head unremarkable I have requested CTA head and neck I would increase her aspirin dose 262 mg instead of 81 mg, start Plavix, dual antiplatelet therapy for at least 21 days, start high-dose atorvastatin, check lipid profile I would recommend following up with outpatient neurologist, no need of speech evaluation, would only request physical therapy evaluation in the morning No previous history of diabetes, [place], A. fib, hypercoagulable state Status: Acute Additional A&P Information Bipolar disorder with psychotic features I would continue olanzapine for now DVT prophylaxis: Lovenox Cardiac diet Full code Attestations Medical Necessity Statement*: Anticipating discharge in less than 48 hours, currently need CTA head and neck to rule out etiology for recurrent TIAs Time Spent in Patient Care: (>than 50% of time spent in counselling and/or direct pt care on unit) . 50mins Coding Level of Care Code Acute Process Control Programmer for Galilea Jackman Diagnoses TIA (transient ischemic attack) G45.9
[2020-03-22 22:19] VITALS: BP 155/92; PULSE 70; RESP 16; O2SAT 97
[2020-03-22 22:46] LABS: Urine Color Straw (Yellow)
[2020-03-22 22:47] LABS: Add Urine Microscopic? YES; Bilirubin Urine Neg (Negative); Blood Urine Neg (Negative); Glucose Urine UA Norm (Normal); Ketones Urine Negative (Negative); Leukocyte Esterase Urine Trace (Negative); Nitrate Urine Negative (Negative); Protein Urine Neg (Negative); Specific Gravity, Urine 1.005 (1.005-1.030); Urine Appearance Clear (CLEAR); Urobilinogen Urine Norm (Negative); pH Urine 7 (5-7)
[2020-03-22] MEDS: iohexol 350 mg/mL 100 mL Btl IV (22:50)
[2020-03-22 22:51] LABS: Add Urine Culture? No; Bacteria Urine TRACE /hpf; RBC Urine 0-4 /hpf (0-2); Squamous Epithelial Cell Urine 0-4 /hpf (0-5); WBC Urine 0-4 /hpf (0-5)
[2020-03-22 23:43] VITALS: BP 114/78; PULSE 77; RESP 18; O2SAT 92
[2020-03-23 00:40] VITALS: BP 94/75; PULSE 76; RESP 16; O2SAT 93
--- NOTE | 2020-03-23 01:13 | USCV_ITS ---
Godwin Alanna Age: 55 Gender: F : 1965 Exam Date: 03/23/2020 06:44 Ordering Phys: Marcella Santos MD Technologist: Ramonita Gardiner Exam Location: [facility] [place] Indication: SHORTNESS OF BREATH BP: 132 / 78 HR: 72 Rhythm: Sinus Technical Quality: Good MEASUREMENTS (Male / Female) Normal Values 2D ECHO LV Diastolic Diameter PLAX 3.4 cm 4.2 - 5.9 / 3.9 - 5.3 cm LV Systolic Diameter PLAX 2.4 cm IVS Diastolic Thickness 1.0 cm 0.6 - 1.0 / 0.6 - 0.9 cm IVS Systolic Thickness 1.4 cm LVPW Diastolic Thickness 1.2 cm 0.6 - 1.0 / 0.6 - 0.9 cm LVPW Systolic Thickness 1.3 cm LVOT Diameter 2.1 cm LV Ejection Fraction 2D Teich 58.4 % LA Diameter 3.0 cm LA Width 3.4 cm LA Height 3.4 cm RA Width 2.5 cm RA Height 3.4 cm Aorta at Sinotubular Diameter 1.1 cm M-MODE LV Diastolic Diameter MM 5.1 cm 4.2 - 5.9 / 3.9 - 5.3 cm LV Systolic Diameter MM 3.2 cm LV Ejection Fraction MM Teich 68.5 % IVS Diastolic Thickness MM 0.9 cm 0.6 - 1.0 / 0.6 - 0.9 cm IVS Systolic Thickness MM 1.4 cm LVPW Diastolic Thickness MM 1.1 cm 0.6 - 1.0 / 0.6 - 0.9 cm LVPW Systolic Thickness MM 1.3 cm RV Diastolic Diameter MM 1.2 cm Aortic Annulus Diameter 3.2 cm LA Ao Ratio MM 1.1 MV E Point Septal Separation 0.9 cm DOPPLER AV Peak Velocity 114.0 cm/s LVOT Peak Velocity 97.0 cm/s AV Area Cont Eq vti 3.2 cm squared AV Area Cont Eq pk 2.9 cm squared MV Area PHT 5.1 cm squared Mitral E to A Ratio 1.1 MV E' Velocity 37.0 cm/s Mitral E to MV E' Ratio 5.2 Mitral E to LV E' Lateral Ratio 5.5 Mitral E to LV E' Septal Ratio 5.1 TR Peak Velocity 167.3 cm/s TR Peak Gradient 11.2 mmHg TV Peak E Velocity 74.0 cm/s Right Atrial Pressure 3.0 mmHg Pulmonary Artery Systolic Pressu 14.2 mmHg PV Peak Velocity 88.0 cm/s FINDINGS Left Ventricle Normal left ventricular size and systolic function, EF 58%. Mild left ventricular hypertrophy. No regional wall motion abnormalities. Right Ventricle The right ventricle is normal in size and function. Right Atrium The right atrium is normal in size. Left Atrium The left atrium is normal in size. Mitral Valve Minimally thickened valve Aortic Valve No gross abnormalities noted Tricuspid Valve Trace tricuspid valve regurgitation. Pulmonic Valve Structurally normal pulmonic valve without significant stenosis. There is no pulmonic regurgitation. Pericardium Normal pericardium without effusion. Aorta Normal ascending aorta dimension. CONCLUSIONS Normal left ventricular size and systolic function, EF 58%. Mild left ventricular hypertrophy. No regional wall motion abnormalities. Minimally thickened mitral valves. Trace tricuspid valve regurgitation. There is no pericardial effusion. There are no intracardiac masses. No previous study is available for comparison. Dr Reinier Solis MD FACC (Electronically Signed) Final Date: 23 March 2020 15:12 S
[2020-03-23 01:21] VITALS: BP 115/67; PULSE 72; RESP 14; TEMP 36.5; O2SAT 97
[2020-03-23 01:48] LABS: Chol HDL Ratio 4.16 mg/dL (0.0-4.40); Cholesterol 287 mg/dL (0-200); HDL Cholesterol 69 mg/dL (60-100); LDL Cholesterol Calculated 160 mg/dL (50-129); LDL HDL Ratio 2.32 RATIO (0.00-3.22); Triglycerides 290 mg/dL (0-150)
[2020-03-23] MEDS: atorvastatin 40 mg Tablet 80 MG PO (02:40)
[2020-03-23] MEDS: enoxaparin 40 mg/0.4 mL Syringe SUBCUT (02:41)
[2020-03-23 05:44] LABS: Anion Gap 11.4 (5-19); Blood Urea Nitrogen 9 mg/dL (6-20); Calcium 9.5 mg/dL (8.5-10.5); Carbon Dioxide 29 mmol/L (22-29); Chloride 97 mmol/L (98-107); Glomerular Filtration Rate 104.6 mL/min (90-130); Glucose 100 mg/dL (65-115); Osmolality Calculated 275 mOsm/kg (285-295); Potassium 4.4 mmol/L (3.5-5.1); Sodium 133 mmol/L (136-145)
[2020-03-23 06:03] LABS: Estmated Average Glucose 111; Hemoglobin A1C 5.5 % (4.0-6.0)
--- NOTE | 2020-03-23 07:06 | PC.NURSE ---
Received report from [facility], assumed care of patient.
--- NOTE | 2020-03-23 08:53 | PC.NURSE ---
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 discussed plan of care, verbalized understanding, denies further questions or concerns.
[2020-03-23 08:55] VITALS: BP 113/64; PULSE 78; RESP 16; TEMP 36.8; O2SAT 91
[2020-03-23] MEDS: aspirin 81 mg EC Tablet 162 MG PO (08:55)
[2020-03-23] MEDS: clopidogrel 75 mg Tablet PO (08:55)
[2020-03-23] MEDS: PARoxetine 20 mg Tablet 40 MG PO (08:55)
--- NOTE | 2020-03-23 08:58 | P.DS_ITS ---
Discharge Providers Date of Admission: 03/23/20 00:19 Date of Discharge: March 23, 2020 Attending Provider at Admission: Marcella Santos MD Attending Provider at Discharge: All Soto MD Primary Care Provider: Shaniak Billy DO Diagnoses at Discharge Discharge Diagnosis (1) TIA (transient ischemic attack): Status: Acute Reason for Visit Reason for Visit: L SIDE OF FACE NUMB/TINGLING/ THINKGS STROKE Hospital Course Discharge Summary: Patient presents with recurrent episodes of TIA. She gives history of frequent episodes of heart palpitations and chest discomfort. Reports that it happens several times a week for long period of time. Reports that her discomfort at times gets significant that she needs to stop until her rapid heart rate/palpitations calm down. Denies any chest pain or shortness of breath when she is free of those episodes even with exertion. Patient had CTA of head and neck without significant findings. She reports medical compliance and reports taking aspirin as it was prescribed. She reports that her tingling sensation is gone this morning. Reports that she was extensively evaluated for stroke at [facility] during her last episode. 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 Case discussed with Dr. Solis who will follow up patient for 30-day event monitor. 20 mg of atorvastatin will be added and patient will be continued on aspirin dose for now. 21-day Plavix will also be added to her regimen. Outpatient follow-up with Dr. Kan will also be requested. Prior to discharge I will request limited echocardiogram to make sure there is no obvious intracardiac embolic source. Physical Exam Const: COMMON NORMALS: no acute distress and patient oriented x3 Resp: COMMON NORMALS: normal respiratory effort and clear to auscultation bilaterally AUSCULTATION: clear to auscultation bilaterally Cardio: COMMON NORMALS: regular rate, regular rhythm and S2 normal heart sound present RATE: regular rate RHYTHM: regular rhythm HEART SOUNDS: S2 normal heart sound present OTHER: No lower extremity edema GI: COMMON NORMALS: Normal to inspection, nondistended, normoactive bowel sounds present, Soft to palpation and non-tender PALPATION: Yes Soft to palpation Neuro: COMMON NORMALS: patient oriented x3 and no focal motor deficits OTHER: Patient had normal shoulder shrug and had no pronator drift. She had no cerebellar signs. Her [id number] was normal bilaterally. She had normal peripheral vision except as mentioned right nasal hemianopsia Discharge Data Data Completed and Pending: Completed Studies During Hospitalization Category Date Time Status CT angio headneck * [id number] Urge nt Cat Scan 03/22/20 22:[address] head wo con* [id number] Urgent Cat Scan 03/22/20 18:17 Completed Pending at discharge Category Date Time Status CV echo complete* [id number] Routine Ultrasound 03/23/20 01:13 Taken Labs from last 24 hours 03/23/20 03/23/20 03/22/20 04:37 04:37 22:16 WBC RBC Hgb Hct MCV MCH MCHC RDW Plt Count MPV Neut % (Auto) Lymph % (Auto) [place] % (Auto) Eos % (Auto) Baso % (Auto) Neut # (Auto) Lymph # (Auto) [place] # (Auto) Eos # (Auto) Baso # (Auto) Nucleated RBC % (a uto) Nucleated RBCs # Sodium 133 L Potassium 4.4 Chloride 97 L Carbon Dioxide 29 Anion Gap 11.4 BUN 9 Creatinine 0.6 GFR Calculation 104.6 Glucose 100 Estimat Average Gl ucose 111 Hemoglobin A1c 5.5 Calculated Osmolal ity 275 L Calcium 9.5 Total Bilirubin AST ALT Alkaline Phosphata se Troponin T Gen 5 n g/L Total Protein Albumin Globulin Triglycerides Cholesterol LDL Cholesterol, C alc HDL Cholesterol LDL/HDL Ratio Cholesterol/HDL Ra desi Urine Color Straw Urine Appearance Clear Urine pH 7 Ur Specific Gravit y 1.005 Urine Protein Neg Urine Glucose (UA) Norm Urine Ketones Negative Urine Blood Neg Urine Nitrate Negative Urine Bilirubin Neg Urine Urobilinogen Norm Ur Leukocyte Krista ase Trace H Urine RBC 0-4 H Urine WBC 0-4 H Ur Squamous Epith Cells 0-4 H Amorphous Sediment Not Reportable Urine Bacteria Trace 03/22/20 03/22/20 03/22/20 20:25 20:25 20:25 WBC RBC Hgb Hct MCV MCH MCHC RDW Plt Count MPV Neut % (Auto) Lymph % (Auto) [place] % (Auto) Eos % (Auto) Baso % (Auto) Neut # (Auto) Lymph # (Auto) [place] # (Auto) Eos # (Auto) Baso # (Auto) Nucleated RBC % (a uto) Nucleated RBCs # Sodium 132 L Potassium 4.0 Chloride 96 L Carbon Dioxide 27 Anion Gap 13.0 BUN 12 Creatinine 0.8 GFR Calculation 75.0 L Glucose 110 Estimat Average Gl ucose Hemoglobin A1c Calculated Osmolal ity 274 L Calcium 9.6 Total Bilirubin 0.2 AST 22 ALT 19 Alkaline Phosphata se 125 H Troponin T Gen 5 n g/L 17 H Total Protein 7.3 Albumin 4.5 Globulin 2.8 Triglycerides 290 H Cholesterol 287 H LDL Cholesterol, C alc 160 H HDL Cholesterol 69 LDL/HDL Ratio 2.32 Cholesterol/HDL Ra desi 4.16 Urine Color Urine Appearance Urine pH Ur Specific Gravit y Urine Protein Urine Glucose (UA) Urine Ketones Urine Blood Urine Nitrate Urine Bilirubin Urine Urobilinogen Ur Leukocyte Krista ase Urine RBC Urine WBC Ur Squamous Epith Cells Amorphous Sediment Urine Bacteria 03/22/20 20:25 WBC 8.9 RBC 4.65 Hgb 13.1 Hct 40.9 MCV 88.0 MCH 28.2 MCHC 32.0 RDW 13.4 Plt Count 276 MPV 8.8 Neut % (Auto) 64.0 Lymph % (Auto) 23.5 [place] % (Auto) 7.0 Eos % (Auto) 4.6 Baso % (Auto) 0.6 Neut # (Auto) 5.69 Lymph # (Auto) 2.1 [place] # (Auto) 0.6 Eos # (Auto) 0.4 Baso # (Auto) 0.1 Nucleated RBC % (a uto) 0 Nucleated RBCs # 0.0 Sodium Potassium Chloride Carbon Dioxide Anion Gap BUN Creatinine GFR Calculation Glucose Estimat Average Gl ucose Hemoglobin A1c Calculated Osmolal ity Calcium Total Bilirubin AST ALT Alkaline Phosphata se Troponin T Gen 5 n g/L Total Protein Albumin Globulin Triglycerides Cholesterol LDL Cholesterol, C alc HDL Cholesterol LDL/HDL Ratio Cholesterol/HDL Ra desi Urine Color Urine Appearance Urine pH Ur Specific Gravit y Urine Protein Urine Glucose (UA) Urine Ketones Urine Blood Urine Nitrate Urine Bilirubin Urine Urobilinogen Ur Leukocyte Krista ase Urine RBC Urine WBC Ur Squamous Epith Cells Amorphous Sediment Urine Bacteria Vitals: Last Vital Signs Temp 98.3 F 03/23/20 08:55 Pulse 78 03/23/20 08:55 Resp 16 03/23/20 08:55 BP 113/64 03/23/20 08:55 Pulse Ox 91 03/23/20 08:55 Discharge Plan Discharge Patient Disposition: Home Condition: Stable Prescriptions: New atorvastatin [Lipitor] 20 mg tablet 20 mg PO DAILY Qty: 30 RF: 0 clopidogrel 75 mg Tablet 75 mg PO DAILY Qty: 21 RF: 0 Continued olanzapine 10 mg tablet 10 mg PO .qhs 30 Days Qty: 30 RF: 3 paroxetine HCl 40 mg tablet 40 mg PO DAILY 30 Days Qty: 30 RF: 3 cyclobenzaprine 10 mg tablet 10 mg PO TID PRN (Reason: muscle spasm) Qty: 30 RF: 2 clonazepam 0.5 mg tablet 0.25 mg PO BID PRN (Reason: anxiety or panic or sleep) 30 Days Qty: 30 RF: 1 oxcarbazepine 300 mg tablet 300 mg PO BID 30 Days Qty: 60 RF: 3 aspirin [Aspirin Childrens] 81 mg tablet,chewable 81 mg PO DAILY Qty: 30 RF: 0 Discharge Orders: Discharge Order (Routine); Ordered 03/23/20 Ordered By: All Soto Other Ambulatory Orders: [place] 30 day event monitor (Routine) Timeframe: 3 Weeks Facility: [facility] - Location: [facility] Ordered By: All Soto Referrals: Eleni Kan MD [Physician] - 1 week (TIA) Shanika Billy DO [Primary Care Provider] - 4-7 days Reinier Solis MD [Physician] - 04/13/20 (Post event monitor follow-up) Discharge Diet: Advance as tolerated Discharge Activity: Increase activity as tolerated Patient Instructions: Self Care Measures After a Stroke (DC) Activity Restrictions/Additional Instructions: Please call your doctor or present to emergency department if your condition worsens or you develop diarrhea, lightheadedness, fatigue or see blood in your stool or black stool. Please make sure you follow-up with Dr. Solis in 3 weeks to evaluate findings of event monitor as we have discussed. Should we discover atrial fibrillation on panel monitor you will need to be anticoagulated with blood thinner for stroke prevention. Discharge Attestations Time Spent in Discharge Care*: greater than 30 min Quality Metrics Clinical Quality Measures During this hospital stay, did patient experience: Stroke Contraindication to Antithrombotic: Antithrombotic prescribed Contraindication to Anticoagulation: Other (No need at this point) Contraindication to Statin: Statin prescribed Coding Level of Care Code Acute Teen Counselor for g Fwd Diagnoses TIA (transient ischemic attack) G45.9
[2020-03-23 11:58] VITALS: BP 130/87; PULSE 76; RESP 16; TEMP 36.8; O2SAT 96
--- NOTE | 2020-03-23 15:39 | PC.NURSE ---
discharge instructions provided, denies further questions or concerns, taken via wheelchair to get halter monitor placed.
[2020-03-23 16:00] VITALS: BP 130/87; PULSE 76; RESP 16; TEMP 36.8; O2SAT 96
== END 2020-03-23 16:01 | disposition home or self-care (01) ==
LOC: ER 22:22 → MEDSURG 03-23 00:19
PROVIDERS: Emergency Medicine; Admitting Provider Internal Medicine; Emergency Provider Internal Medicine; PCP Internal Medicine; Visit Provider Internal Medicine
DX: G45.9 Transient cerebral ischemic attack, unspecified (principal); Z79.82 Long term (current) use of aspirin; Z87.891 Personal history of nicotine dependence; R29.704 NIHSS score 4; F41.9 Anxiety disorder, unspecified; Z86.73 Personal history of transient ischemic attack (TIA), and cerebral infarction without residual deficits
CPT/HCPCS: 12345; 36415; 70450; 70496; 70498; 80048; 80053; 80061; 81001; 83036; 84484; 85025; 93005; 93306; 93308; 96372; 97110; 97161; 99283; 99285; G0378; J1650; Q9967

== ENCOUNTER 2020-04-12 15:10 | Outpatient (CLI) | payer OTHER, SELFPAY ==
--- NOTE | 2020-04-12 15:16 | MM_ITS ---
WS: [id number] BILATERAL DIGITAL SCREENING MAMMOGRAPHY WITH CAD CLINICAL INFORMATION: SCREENING HISTORY: Screening mammogram. No current complaints. COMPARISON: October 07, 2019 TECHNIQUE: Bilateral CC and MLO views. FINDINGS: The breasts are composed of heterogeneous fibroglandular density tissue, which can limit the detectio n of small underlying mass lesions. No suspicious mass, asymmetry, calcifications, or architectural d istortion. No evidence of malignancy. Lucent centered calcification right breast. MM/[place] [id number] IMPRESSION: BI-RADS: 2-Benign FOLLOW UP: 1 Year Follow-up Recommend return to annual screening mammography.
== END 2020-04-12 15:11 | disposition home or self-care (01) ==
LOC: RADSHAW 15:13
PROVIDERS: PCP Internal Medicine; Visit Provider Internal Medicine
DX: Z12.31 Encounter for screening mammogram for malignant neoplasm of breast (principal)
CPT/HCPCS: 77067

== ENCOUNTER 2020-04-16 13:26 | Outpatient (RCR) | payer OTHER, SELFPAY | END 2020-05-07 23:59 | disposition home or self-care (01) | LOC: SOT 13:26 | PROVIDERS: PCP Internal Medicine; Referring Provider Nurse Practitioner Family; Visit Provider Nurse Practitioner Family | DX: R53.1 Weakness (principal) | CPT/HCPCS: 97110; 97167 ==

== ENCOUNTER → 2020-04-17 07:49 | Outpatient (BNVA) | payer OTHER, SELFPAY | PROVIDERS: PCP Internal Medicine; Visit Provider Specialist | DX: R29.90 Unspecified symptoms and signs involving the nervous system (principal); Z87.891 Personal history of nicotine dependence | CPT/HCPCS: 99205 ==

== ENCOUNTER → 2020-04-19 14:43 | Outpatient (BNVA) | payer OTHER, SELFPAY | PROVIDERS: PCP Internal Medicine; Visit Provider Psychiatry & Neurology Psychiatry | DX: F41.1 Generalized anxiety disorder (principal); F31.64 Bipolar disorder, current episode mixed, severe, with psychotic features; F51.9 Sleep disorder not due to a substance or known physiological condition, unspecified | CPT/HCPCS: 99214 ==

== ENCOUNTER 2020-05-02 14:36 | Outpatient (CLI) | payer OTHER, SELFPAY ==
--- NOTE | 2020-05-02 16:45 | MR_ITS ---
WS: [id number] MRI BRAIN WITHOUT CONTRAST HISTORY: G45.9 - Transient cerebral ischemic attack, unspecified COMPARISON: CT head 03/22/2020 TECHNIQUE: Diffusion imaging, multiplanar T1, T2 and FLAIR imaging obtained. There is no evidence for acute infarct or hemorrhage. There is a focal rounded signal abnormality in the LEFT cerebral peduncle. There is additional increased T2 and FLAIR signal abutting the corpus susan losum of the occipital horn LEFT lateral ventricle. There is increased T2 signal in the medial LEFT t emporal lobe cortex. There are additional scattered subcortical T2 and FLAIR signal hyperintensities. No remote or acute infarcts are volume loss. Ventricles and extra-axial spaces are normal. No inferior displacement of cerebellar tonsils. The sella turcica and pituitary gland are unremarkabl e. Posterior fossa is also unremarkable. Dural venous sinuses and [place] demonstrate no abnormality on this unenhanced studies. Paranasal sinuses: Mild mucoperiosteal thickening in the maxillary sinuses. Mastoid air cells: Normal. Calvarium and scalp: Intact. MR/MR head wo con* [id number] IMPRESSION: 1. No acute infarct or hemorrhage. 2. Abnormal FLAIR and T2 signal abnormalities within the medial LEFT temporal lobe cortex, LEFT cerebral peduncle and posterior LEFT corpus callosum. Evaluat e for possible demyelinating disease such as multiple sclerosis. Post contrast imaging may also be necessary.
--- NOTE | 2020-05-02 17:30 | MR_ITS ---
WS: [id number] MRI CERVICAL SPINE HISTORY: G45.9 - Transient cerebral ischemic attack, unspecified, left-sided numbness. COMPARISON: None available. Normal cervical alignment with no compression fracture or significant disc space narrowing. Signal within the cervical cord is normal. Visualized posterior fossa is unremarkable. Small arachnoi d cyst in the retrocerebellar region seen on the lateral projection. Craniocervical junction, C1 and C2 relationship, odontoid process and soft tissues are normal. C2-C3: Normal. C3-C4: Small vertebral body osteophytes without stenosis. Mild encroachment upon the ventral thecal s ac. C4-C5: Small central disc protrusion and vertebral body osteophytes. Mild encroachment upon the ventr al thecal sac with no high-grade stenosis. C5-C6: Mild narrowing of the thecal sac. C6-C7: Shallow central disc protrusion. Mild contact on the ventral thecal sac. C7-T1: Central disc protrusion and small foraminal osteophytes. Mild central stenosis. Paraspinal soft tissue are normal. MR/MR cervical spin wo con* [id number] IMPRESSION: 1. No high-grade central or foraminal stenosis. 2. Very mild narrowing of the central canal from the C3-4 level through C7-T1. Probably due to combination of mild facet and disc disease and congenitally sm all thecal sac. 3. Shallow central disc protrusion at C7-T1, C6-7 and C4-5.
== END 2020-05-02 14:37 | disposition home or self-care (01) ==
LOC: RADSHAW 14:39
PROVIDERS: PCP Internal Medicine; Visit Provider Specialist
DX: G45.9 Transient cerebral ischemic attack, unspecified (principal); M50.21 Other cervical disc displacement, high cervical region
CPT/HCPCS: 70551; 72141

== ENCOUNTER 2020-05-08 06:00 | Outpatient (RCR) | payer SELFPAY | END 2020-05-17 23:00 | disposition home or self-care (01) | LOC: SOT 06:00 | PROVIDERS: PCP Internal Medicine; Referring Provider Nurse Practitioner Family; Visit Provider Nurse Practitioner Family | DX: R53.1 Weakness (principal) | CPT/HCPCS: 97110 ==

== ENCOUNTER → 2020-06-11 10:15 | Outpatient (BNVA) | payer SELFPAY | PROVIDERS: PCP Internal Medicine; Visit Provider Specialist | DX: G37.9 Demyelinating disease of central nervous system, unspecified (principal); F31.75 Bipolar disorder, in partial remission, most recent episode depressed; F43.12 Post-traumatic stress disorder, chronic; Z87.891 Personal history of nicotine dependence | CPT/HCPCS: 62270; 99214 ==

== ENCOUNTER 2020-06-11 11:50 | Outpatient (CLI) | payer SELFPAY ==
[2020-06-11 12:20] LABS: CSF Mononuclear # 0.002 10^3/uL (50-90); Mononuclear WBC CSF % 100 % (50-90); Polynuclear WBC CSF % 0 % (0-10); Red Blood Cell CSF 0 10^3/uL (0-0); White Blood Cell CSF 2 /uL (0-5)
[2020-06-11 12:30] LABS: Glucose CSF 62 mg/dL (40-70); Total Protein CSF 38 mg/dL (15-45)
[2020-06-11 13:01] LABS: Appearance CSF CLEAR (CLEAR); Color CSF COLORLESS (COLORLESS)
[2020-06-25 21:38] LABS: IGG CSF 3.4 mg/dL (0.8-7.7); IGG Serum Test 1290 mg/dL (600-1640)
== END 2020-06-11 11:51 | disposition home or self-care (01) ==
PROVIDERS: PCP Internal Medicine; Visit Provider Specialist
DX: G37.9 Demyelinating disease of central nervous system, unspecified (principal); I63.9 Cerebral infarction, unspecified
CPT/HCPCS: 36415; 80500; 82040; 82042; 82784; 82945; 83873; 83916; 84157; 87070; 87075; 87205; 89050

== ENCOUNTER → 2020-06-28 09:30 | Outpatient (BNVA) | payer OTHER, SELFPAY | PROVIDERS: PCP Internal Medicine; Visit Provider Psychiatry & Neurology Psychiatry | DX: G37.9 Demyelinating disease of central nervous system, unspecified (principal); R20.0 Anesthesia of skin; R20.2 Paresthesia of skin; F41.9 Anxiety disorder, unspecified; Z87.891 Personal history of nicotine dependence | CPT/HCPCS: 99214 ==

== ENCOUNTER → 2020-08-16 10:44 | Outpatient (BNVA) | payer OTHER, SELFPAY | PROVIDERS: PCP Internal Medicine; Visit Provider Psychiatry & Neurology Psychiatry | DX: F32.9 Major depressive disorder, single episode, unspecified (principal); F31.75 Bipolar disorder, in partial remission, most recent episode depressed; F43.12 Post-traumatic stress disorder, chronic; F41.9 Anxiety disorder, unspecified | CPT/HCPCS: 99214 ==

== ENCOUNTER → 2020-10-04 10:43 | Outpatient (BNVA) | payer OTHER, SELFPAY | PROVIDERS: PCP Internal Medicine; Visit Provider Psychiatry & Neurology Psychiatry | DX: F32.9 Major depressive disorder, single episode, unspecified (principal); F31.75 Bipolar disorder, in partial remission, most recent episode depressed; F43.12 Post-traumatic stress disorder, chronic; F41.9 Anxiety disorder, unspecified; Z03.89 Encounter for observation for other suspected diseases and conditions ruled out; Z79.899 Other long term (current) drug therapy; F31.9 Bipolar disorder, unspecified | CPT/HCPCS: 80053; 80061; 83036; 84443; 85025; 99214 ==

== ENCOUNTER → 2020-11-12 14:13 | Outpatient (BNVA) | payer OTHER, SELFPAY | PROVIDERS: PCP Internal Medicine; Visit Provider Psychiatry & Neurology Psychiatry | DX: Z79.899 Other long term (current) drug therapy (principal) | CPT/HCPCS: 84295 ==

== ENCOUNTER 2020-11-21 10:20 | Emergency (ER) | payer SELFPAY ==
[2020-11-21 10:26] VITALS: BP 137/70; PULSE 72; RESP 18; TEMP 36.7; O2SAT 97; BMI 29.2
--- NOTE | 2020-11-21 10:37 | CT_ITS ---
WS: [id number] CT HEAD TECHNIQUE: Noncontrast CT of the head obtained from the skullbase to the vertex. CLINICAL INFORMATION: dizzy with left face numbness COMPARISON: MRI May 02, [address] March 22, 2020 DLP: 857.[address] scans at [facility] use at least one of these dose optimization techniques: automat ed exposure control; mA and/or kV adjustment per patient size (includes targeted exams where dose is matched to clinical indication); or iterative reconstruction. FINDINGS: No evidence of intracranial hemorrhage or mass effect. Ventricular system and basal cisterns are mckeon nt. Mild supratentorial white matter changes. No significant parenchymal volume loss. No extra-axial fluid collections. No evidence of mass or mass effect. Normal guerrier-white differentiation. Paranasal sinuses and mastoid air cells are well aerated. .Normal visualized soft tissues. CT/CT head wo con* [id number] IMPRESSION: 1. No evidence of intracranial hemorrhage or mass effect. 2. Mild supratentorial white matter changes. No significant parenchymal volume loss. 3. No acute intracranial findings.
--- NOTE | 2020-11-21 10:37 | XR_ITS ---
WS: [id number] Exam: XR chest 1V portable [id number] Date/Time of Exam: 11/21/2020 10:41 AM Reason For Exam: chest pain Comparison 01/21/2020. Findings: The lungs are clear and fully expanded. Costophrenic angles are sharp. No infiltrates. Bronchovascula r relief appears normal. Cardiac silhouette is unremarkable. Bony elements are intact. XR/XR chest 1V portable [id number] IMPRESSION: Unremarkable chest radiograph.
--- NOTE | 2020-11-21 10:44 | ED_ITS ---
HPI - Neuro Symptoms/Deficit General: Chief Complaint: Neuro Symptoms/Deficit Stated Complaint: Sent from urgent care, L side face tingle, dizzy Time Seen by Provider: 11/21/20 10:37 History of Present Illness: HPI Narrative: Patient is a 55-year-old female com es to the ED with left-sided weakness and numbness to left side of face. Patient says she has a past medical history of stroke which left her with residual left-sided weakness back in March 2020. She had same presenting symptoms today as she did back in March 2020. Patient says that the left sided facial numbness and left side extremity weakness started approximately 1 week ago. She feels like the weakness is just progressed over the last week. She also endorses some episodic burning type pain in her left eye, but denies any vision changes. Denies any head injury or trauma to cause symptoms. She also endorses having some mild chest discomfort as well that started a couple days ago. Associated symptoms: Reports chest pain (chest discomfort); Deny headache(s), nausea or vomiting Review of Systems Const: Denies: fever(s), chills or fatigue Eyes: Reports: eye discomfort (episodic left eye burning type pain); Denies: change in vision ENMT: Denies: throat pain, odynophagia, nasal discharge or nasal congestion Card: Reports: chest pain (chest discomfort); Denies: palpitations, edema, swelling of feet/ankles, dyspnea on exertion or orthopnea Resp: Denies: dyspnea, productive cough or non-productive cough GI: Denies: abdominal pain, nausea, vomiting, diarrhea, constipation or hematochezia : Denies: flank pain, dysuria or hematuria Musc: Denies: neck pain, back pain or extremity swelling Skin/Breast: Denies: rash or new lesions Neuro: Reports: weakness in extremities (Left side-pt does have residual weakness from prior stroke.), sensory changes (left side of face numbness) and dizziness; Denies: headache(s) or numbness in extremities PFS ED PFSH: Medical History Abdominal wall bulge Anxiety Bipolar disorder with psychotic features Bipolar disorder, in partial remission, most recent episode depressed Depression Encounter for observation for other suspected diseases and conditions ruled out Post-traumatic stress disorder, chronic Problems related to lack of adequate sleep TIA (transient ischemic attack) Surgical History H/O foot surgery History of delivery History of cholecystectomy History of hysterectomy History of tubal ligation History of ventral hernia repair (~11/2019) Family History Sister Cancer Mother Diabetes Denies family history of Anesthesia complication Bleeding disorder Social History Smoking and tobacco status: former smoker Alcohol intake: never Household members: significant other Marital status: Current occupational status: employed Current occupation: [email or web address] History of recent travel: No NIH stroke score NIHSS: Level Of Consciousness - 1a: 0 Level Of Consciousness Questions - 1b: Both Correct Level Of Consciousness Commands - 1c: Both Correct Best Gaze - 2: Normal Visual Dueñas - 3: No Visual Loss Facial Palsy - 4: Normal Motor Arm Right - 5: No Drift Motor Arm Left - 5: No Drift Motor Leg Right - 6: No Drift Motor Leg Left - 6: No Drift Limb Ataxia - 7: Absent Sensory - 8: Normal Best Language - 9: No Aphasia Dysarthia - 10: Normal Extinction And Inattention - 11: 0 Score: Total Score: 0 Physical Exam Const: COMMON NORMALS: no acute distress, patient oriented x3 and alert GENERAL APPEARANCE: cooperative and comfortable HENMT: COMMON NORMALS: normocephalic HEAD & SCALP: normocephalic MOUTH: Normal oral and palatal mucosa present THROAT: posterior oropharynx normal and uvula midline Eye: COMMON NORMALS: Equal, round and reactive pupils present, EOMs intact bilaterally and conjunctivae normal CONJUNCTIVA: Yes conjunctivae normal PUPIL: Yes Equal, round and reactive pupils present Neck/C-Spine: COMMON NORMALS: supple GENERAL: Yes normal visual inspection Chest: COMMONS NORMALS: normal palpation of entire chest wall Resp: COMMON NORMALS: normal respiratory effort, No retractions, No use of accessory muscles and clear to auscultation bilaterally AUSCULTATION: clear to auscultation bilaterally Cardio: COMMON NORMALS: regular rate, regular rhythm, S1 normal heart sound present, S2 normal heart sound present, No gallops present (Cardio), No clicks present (Cardio), No murmurs present (Cardio) and Peripheral pulses 2+ throughout RATE: regular rate RHYTHM: regular rhythm HEART SOUNDS: S1 normal heart sound present and S2 normal heart sound present PERIPHERAL PULSES: Peripheral pulses 2+ throughout GI: COMMON NORMALS: Normal to inspection, nondistended, normoactive bowel sounds present, Soft to palpation, non-tender and no masses PALPATION: Yes Soft to palpation : COMMON NORMALS: Yes no CVA tenderness BLADDER/KIDNEY EXAM: Yes no CVA tenderness Back/Pelvis: COMMON NORMALS: no CVA tenderness Neuro: COMMON NORMALS: patient oriented x3, CN's II-XII intact bilaterally, moves all extremities, no focal motor deficits and no sensory deficits noted SENSORIUM/ORIENTATION: Yes alert COORDINATION/BALANCE: [id number] test normal SPEECH: speech normal SENSORY EXAM: Yes extremities (intact) MOTOR EXAM: Pronator motor function not present COORDINATION: [id number] test normal OTHER: Right upper and lower extremities 5 out of 5 strength. Left upper and lower extremities shows slightly weaker than right 4/5. Skin: GENERAL SKIN EXAM: dry skin Course Vital Signs: Vital signs: Vital Signs Temperature 98.0 F 11/21/20 10:26 Pulse Rate 68 11/21/20 13:24 Respiratory Rate 97 H 11/21/20 13:24 Blood Pressure 141/71 11/21/20 13:24 Pulse Oximetry 97 11/21/20 13:24 MDM - Neuro Symptoms/Deficit MDM Narrative: Medical decision making narrative: Patient is a 55-year-old female comes to the ED with left sided weakness, numbness tingling to left side of face and dizziness. Symptoms began about a week ago. She also said she was having some chest discomfort as well. Patient has a past medical history of past stroke that left her with some residual left sided weakness. Patient appears nontoxic and in no acute distress on exam. No noticeable facial droop. Patient had some very slight weakness to left upper and lower extremities compared to right, but rest of neuro and physical exam was benign. NIH stroke score 0. CBC, CMP and lipase were unremarkable. Troponins negative. EKG showed no signs of SC. CT of the head showed no acute hemorrhaging or mass. Chest x-ray showed no acute findings. Patient symptoms resolved here in the ED. Patient was diagnosed with noncardiac chest pain and left-sided weakness, which she already had residual left-sided weakness from past stroke. She is told to follow-up with her PCP in 7 to 10 days for reevaluation. Return to ED precautions given. Patient understood and agreed with plan. Lab Data: Attestation: I reviewed the patient's lab results. Labs: Lab Results 11/21/20 11/21/20 11/21/20 Range/Units 11:36 11:36 11:36 WBC 4.8 (4.0-10.0) 10^3/ uL RBC 4.51 (4.1-5.3) 10^6/u L Hgb 12.7 (11.5-15.3) g/dL Hct 40.3 (37.0-47.0) % MCV 89.4 (81-99) fL MCH 28.2 (28.0-34.0) pg MCHC 31.5 (30.0-36.0) g/dL RDW 13.6 (12.1-15.1) % Plt Count 305 (130-400) 10^3/c mm MPV 9.2 (7.4-10.4) fL Neut % (Auto) 61.5 % Lymph % (Auto) 27.6 % [place] % (Auto) 6.1 % Eos % (Auto) 3.2 % Baso % (Auto) 0.8 % Neut # (Auto) 2.92 (1.8-7.7) 10^3/u L Lymph # (Auto) 1.3 (0.8-4.8) 10^3/u L [place] # (Auto) 0.3 (0.2-0.9) 10^3/u L Eos # (Auto) 0.2 (0.0-0.8) 10^3/u L Baso # (Auto) 0.0 (0.0-0.1) 10^3/u L Nucleated RBC % (a uto) 0 % Nucleated RBCs # 0.0 /100WBC Sodium 139 (136-145) mmol/L Potassium 4.9 (3.5-5.1) mmol/L Chloride 103 (98-107) mmol/L Carbon Dioxide 27 (22-29) mmol/L Anion Gap 13.9 (5-19) BUN 5 L (6-20) mg/dL Creatinine 0.6 (0.5-0.9) mg/dL GFR Calculation 104.6 (90-130) mL/min Glucose 102 (65-115) mg/dL Calculated Osmolal ity 285 (285-295) mOsm/k g Calcium 9.1 (8.5-10.5) mg/dL Total Bilirubin 0.2 (0.15-1.2) mg/dL AST 19 (0-32) U/L ALT 15 (0-33) U/L Alkaline Phosphata se 107 H (35-105) IU/L Troponin T Baselin e 19 H (0-10) ng/L Troponin T 120 Min [place] (0-10) ng/L Delta Troponin T (0-10) ABS# Total Protein 6.4 L (6.6-8.7) g/dL Albumin 3.9 (3.5-5.2) g/dL Globulin 2.5 (1.3-4.6) g/dL / Range/Units 13:40 WBC (4.0-10.0) 10^3/ uL RBC (4.1-5.3) 10^6/u L Hgb (11.5-15.3) g/dL Hct (37.0-47.0) % MCV (81-99) fL MCH (28.0-34.0) pg MCHC (30.0-36.0) g/dL RDW (12.1-15.1) % Plt Count (130-400) 10^3/c mm MPV (7.4-10.4) fL Neut % (Auto) % Lymph % (Auto) % [place] % (Auto) % Eos % (Auto) % Baso % (Auto) % Neut # (Auto) (1.8-7.7) 10^3/u L Lymph # (Auto) (0.8-4.8) 10^3/u L [place] # (Auto) (0.2-0.9) 10^3/u L Eos # (Auto) (0.0-0.8) 10^3/u L Baso # (Auto) (0.0-0.1) 10^3/u L Nucleated RBC % (a uto) % Nucleated RBCs # /100WBC Sodium (136-145) mmol/L Potassium (3.5-5.1) mmol/L Chloride (98-107) mmol/L Carbon Dioxide (22-29) mmol/L Anion Gap (5-19) BUN (6-20) mg/dL Creatinine (0.5-0.9) mg/dL GFR Calculation (90-130) mL/min Glucose (65-115) mg/dL Calculated Osmolal ity (285-295) mOsm/k g Calcium (8.5-10.5) mg/dL Total Bilirubin (0.15-1.2) mg/dL AST (0-32) U/L ALT (0-33) U/L Alkaline Phosphata se (35-105) IU/L Troponin T Baselin e (0-10) ng/L Troponin T 120 Min [place] 16.48 H (0-10) ng/L Delta Troponin T -2.52 L (0-10) ABS# Total Protein (6.6-8.7) g/dL Albumin (3.5-5.2) g/dL Globulin (1.3-4.6) g/dL Imaging Data^: CXR: Attestation: I personally reviewed and interpreted this imaging study as follows: Radiologist's impression: [address] [address] XRay Report Signed Patient: Alanna Connelly Unit #: [id number] : 1965 Age/Sex: 55 / F ADM Date: 11/21/20 Loc: ER Room/Bed: Attending Dr: Ordering Provider/Ordering MD: Justin Blake Date of Service: 11/21/20 Procedure(s): XR chest 1V portable [id number] Accession Number(s): [id number] Report Number: [id number] WS: [id number] Exam: XR chest 1V portable [id number] Date/Time of Exam: 11/21/2020 10:41 AM Reason For Exam: chest pain Comparison 01/21/2020. Findings: The lungs are clear and fully expanded. Costophrenic angles are sharp. No inf iltrates. Bronchovascular relief appears normal. Cardiac silhouette is unremarkable. Bony elements are intact. XR/XR chest 1V portable [id number] IMPRESSION: Unremarkable chest radiograph. Dictated By: Will Neely DO Signed By: Will Neely DO Signed Date/Time: 0 11/21/20 1051 DD/ 1051 CT Head: Attestation: I personally reviewed and interpreted this imaging study as follows: Radiologist's impression: [facility] [address] [place] [address] CT Scan Report Signed Patient: Alanna Connelly Unit #: [id number] : 1965 Age/Sex: 55 / F ADM Date: 1 Loc: ER Room/Bed: Attending Dr: Ordering Provider/Ordering MD: Justin Blake Date of Service: 11/21/20 Procedure(s): CT head wo con* [id number] Accession Number(s): [id number] Report Number: [id number] WS: [id number] CT HEAD TECHNIQUE: Noncontrast CT of the head obtained from the skullbase to the vertex. CLINICAL INFORMATION: dizzy with left face numbness COMPARISON: MRI May 02, [address] March 22, 2020 DLP: 857.[address] scans at [facility] use at least one of these dose optimization techniques: automated exposure control; mA and/or kV adjustment per patient size (includes targeted exams where dose is matched to clinical indication); or iterative reconstruction. FINDINGS: No evidence of intracranial hemorrhage or mass effect. Ventricular system and basal cisterns are patent. Mild supratentorial white matter changes. No significant parenchymal volume loss. No extra- axial fluid collections. No evidence of mass or mass effect. Normal guerrier-white differentiation. Paranasal sinuses and mastoid air cells are well aerated. .Normal visualized soft tissues. CT/CT head wo con* [id number] IMPRESSION: 1. No evidence of intracranial hemorrhage or mass effect. 2. Mild supratentorial white matter changes. No significant parenchymal volume loss. 3. No acute intracranial findings. Dictated By: Rene Orta MD Signed By: Rene Orta MD Signed Date/Time: 11/21/20 1133 DD/ 1129 EKG Data^: EKG 1: Attestation: I personally reviewed and interpreted this EKG as follows: EKG interpretation date: 11/21/20 Interpretation: Normal sinus rhythm, 64 bpm, no ST segment elevation or depression noted. EKG 2: Attestation: I personally reviewed and interpreted this EKG as follows: EKG interpretation date: 11/21/20 Interpretation: 2-hour EKG?normal sinus rhythm, 65 bpm, no ST segment elevation or depression seen. Discharge Plan Discharge Patient Disposition: Home Clinical Impression: Left-sided weakness, Chest pain, non-cardiac Condition: Stable Prescriptions: New Reglan 10 mg tablet 10 mg PO Q6H PRN (Reason: nausea and vomiting) Qty: 20 RF: 0 No Action aspirin 325 mg Tablet 325 mg PO PRN RF: 0 lisinopril 20 mg tablet 20 mg PO QAM RF: 0 Tylenol Extra Strength 500 mg Tablet 1,000 mg PO PRN RF: 0 benztropine 0.5 mg tablet 0.5 mg PO BEDTIME RF: 0 paliperidone 3 mg tablet extended release 24hr 3 mg PO BEDTIME RF: 0 Discharge Orders: Discharge ED (Routine); Ordered 11/21/20 Ordered By: Justin Blake Referrals: Shanika Billy DO [Primary Care Provider] - Discharge Diet: Regular Discharge Activity: Increase activity as tolerated Patient Instructions: Noncardiac Chest Pain (ED) Activity Restrictions/Additional Instructions: Follow-up with medical provider as directed in 5 days for reevaluation. Take me dications as prescribed. Return to the ER or your medical provider if condition worsens. Please read and understand discharge instructions. Thank you for choosing [facility] for your healthcare needs today. Please realize this is an emergency room and that we are providing you with a medical screening exam and this may not be complete and all inclusive of all the testing and or work up that you may need to determine your ailment or severity of your illness. It is very important that you follow up as instructed or that you return to the Emergency Department should you have concerns or if your condition changes or worsens in any way. Coding Level of Care Code ED Geneticist for Galilea Jackman Exam Comprehensive
[2020-11-21 11:38] VITALS: BP 141/76; PULSE 69; O2SAT 99
[2020-11-21 11:41] VITALS: PULSE 64
[2020-11-21 11:41] LABS: Basophils % 0.8 %; Eosinophils # 0.2 10^3/uL (0.0-0.8); Eosinophils % 3.2 %; Hematocrit 40.3 % (37.0-47.0); Hemoglobin 12.7 g/dL (11.5-15.3); Lymphocytes # 1.3 10^3/uL (0.8-4.8); Lymphocytes % 27.6 %; Mean Corpuscular HGB Conc 31.5 g/dL (30.0-36.0); Mean Corpuscular Hemoglobin 28.2 pg (28.0-34.0); Mean Corpuscular Volume 89.4 fL (81-99); Mean Platelet Volume 9.2 fL (7.4-10.4); Monocytes # 0.3 10^3/uL (0.2-0.9); Monocytes % 6.1 %; Neutrophils # 2.92 10^3/uL (1.8-7.7); Neutrophils % 61.5 %; Nucleated Red Blood Cells % 0 %; Platelet Count 305 10^3/cmm (130-400); Red Blood Count 4.51 10^6/uL (4.1-5.3); Red Cell Distribution Width 13.6 % (12.1-15.1); White Blood Count 4.8 10^3/uL (4.0-10.0)
[2020-11-21] MEDS: ondansetron 2 mg/ML SDV 2 mL 4 MG IVP (11:48)
[2020-11-21] MEDS: sodium chloride 0.9% 500 ML 999 ML IV (12:12)
[2020-11-21 12:15] VITALS: PULSE 64; O2SAT 97
--- NOTE | 2020-11-21 12:19 | PC.PHAR ---
pt states she takes care of her own medications-pt states she is taking benztropine 0.5mg hs and paliperidone 3mg at bedtime last filled on 10/04/20 30d/s pt states she is still taking-pt states her dr gopi oxcarbazepine 300mg daily and paxil 40mg daily rx last filled on 10/04/20 30d/s pt states she hasnt taken for a long time-pt states she takes lisinopril 20mg daily but forgot to take today
[2020-11-21] MEDS: metoclopramide 5 mg/mL SDV 2 mL 10 MG IVP (12:25)
[2020-11-21 12:31] LABS: Troponin(5th) Baseline 19 ng/L (0-10)
[2020-11-21 12:33] LABS: Alanine Aminotransferase 15 U/L (0-33); Albumin Level 3.9 g/dL (3.5-5.2); Alkaline Phosphatase 107 IU/L (35-105); Anion Gap 13.9 (5-19); Aspartate Amino Transferase 19 U/L (0-32); Blood Urea Nitrogen 5 mg/dL (6-20); Calcium 9.1 mg/dL (8.5-10.5); Carbon Dioxide 27 mmol/L (22-29); Chloride 103 mmol/L (98-107); Globulin 2.5 g/dL (1.3-4.6); Glomerular Filtration Rate 104.6 mL/min (90-130); Glucose 102 mg/dL (65-115); Osmolality Calculated 285 mOsm/kg (285-295); Potassium 4.9 mmol/L (3.5-5.1); Sodium 139 mmol/L (136-145); Total Bilirubin 0.2 mg/dL (0.15-1.2); Total Protein 6.4 g/dL (6.6-8.7)
--- NOTE | 2020-11-21 12:38 | ECG_ITS ---
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 Measurements Intervals [place] Rate: 65 P: -1 MT: 131 QRS: 4 QRSD: 89 T: 9 QT: 387 QTc: 404 Interpretive Statements SINUS RHYTHM Compared to ECG 11/21/2020 11:12:32 No significant changes Electronically Signed On 11-21-2020 17:50:44 CDT by Reinier Solis M.D. [id number]
[2020-11-21 13:24] VITALS: BP 141/71; PULSE 68; RESP 97; O2SAT 97
[2020-11-21 14:33] LABS: Troponin 5 2HR 16.48 ng/L (0-10); Troponin 5 2HR Delta -2.52 ABS# (0-10)
--- NOTE | 2020-11-21 16:38 | ECG_ITS ---
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 Measurements Intervals [place] Rate: 64 P: 52 [place]: 151 QRS: 0 QRSD: 89 T: 9 QT: 387 QTc: 400 Interpretive Statements SINUS RHYTHM Compared to ECG 03/22/2020 21:24:42 Myocardial infarct finding no longer present Electronically Signed On 11-21-2020 17:50:41 CDT by Reinier Solis M.D. [id number]
== END 2020-11-21 15:16 | disposition home or self-care (01) ==
PROVIDERS: Emergency Provider Physician Assistant; PCP Internal Medicine
DX: R53.1 Weakness (principal); R07.89 Other chest pain; Z79.82 Long term (current) use of aspirin; Z86.73 Personal history of transient ischemic attack (TIA), and cerebral infarction without residual deficits
CPT/HCPCS: 70450; 71045; 80053; 84484; 85025; 93005; 96374; 96375; 99284; J2405; J2765; J7040

== ENCOUNTER 2020-11-23 18:02 | Emergency (ER) | payer SELFPAY ==
[2020-11-23 19:08] VITALS: BP 120/79; PULSE 87; RESP 17; TEMP 36.5; O2SAT 94; BMI 28.2
--- NOTE | 2020-11-23 21:42 | CTR_ITS ---
PROCEDURE INFORMATION: Exam: CT Head Without Contrast Exam date and time: 11/23/2020 9:42 PM Age: 55 years old Clinical indication: Pain; Headache; Additional info: Weakness, headache, n/v, dizzy x 1 week TECHNIQUE: Imaging protocol: Computed tomography of the head without contrast. Radiation optimization: All CT scans at this facility use at least one of these dose optimization techniques: automated exposure control; mA and/or kV adjustment per patient size (includes targeted exams where dose is matched to clinical indication); or iterative reconstruction. COMPARISON: CT head wo con* [id number] 11/21/2020 11:15 AM RADIATION DOSE METRICS: Total DLP (mGy-cm): 851.18 FINDINGS: Brain: Normal. No hemorrhage. Unremarkable white matter. No mass effect. Cerebral ventricles: No ventriculomegaly. Paranasal sinuses: Visualized sinuses are unremarkable. No fluid levels. Mastoid air cells: Visualized mastoid air cells are well aerated. Bones/joints: Unremarkable. No acute fracture. Soft tissues: Unremarkable. CT/CT head wo con* [id number] IMPRESSION: No acute intracranial abnormality. Radiation Dose CTDIVOL = (mGy): DLP = 851.18 (mGy-cm)
--- NOTE | 2020-11-23 21:43 | ECG_ITS ---
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 Measurements Intervals [place] Rate: 80 P: 64 [place]: 146 QRS: 31 QRSD: 97 T: 47 QT: 350 QTc: 404 Interpretive Statements SINUS RHYTHM Compared to ECG 11/21/2020 12:17:07 No significant changes Electronically Signed On 11-23-2020 22:19:12 CDT by Yodit Nunez M.D. [id number]
--- NOTE | 2020-11-23 21:44 | XRR_ITS ---
PROCEDURE INFORMATION: Exam: XR Chest Exam date and time: 11/23/2020 9:44 PM Age: 55 years old Clinical indication: Patient HX: Weakness on left side, n/v x 1wk TECHNIQUE: Imaging protocol: XR of the chest. Views: 1 view. COMPARISON: CR XR chest 1V portable [id number] 11/21/2020 10:37 AM FINDINGS: Lungs: Unremarkable. No consolidation. Pleural spaces: Unremarkable. No pleural effusion. No pneumothorax. Heart/Mediastinum: Unremarkable. No cardiomegaly. Diaphragm: Partial eventration of the right diaphragm. Bones/joints: Unremarkable. XR/XR chest 1V portable [id number] IMPRESSION: No acute findings.
--- NOTE | 2020-11-23 21:45 | PC.NURSE ---
PT MOVED BACK TO ER ROOM 2 BY STAFF
--- NOTE | 2020-11-23 21:45 | W.ED.NEUROSD ---
HPI - Neuro Symptoms/Deficit General: Chief Complaint: Neuro Symptoms/Deficit Stated Complaint: N/V, Weakness of L. Side Time Seen by Provider: 11/23/20 21:42 History of Present Illness: HPI Narrative: 55-year-old female comes in today with complaints of weakness and nausea and vomiting. Patient has a history of left-sided weakness that has been fully evaluated by neurology without any true explanation. Patient reports about 2 days ago she was out in the heat and became overheated and since then she has been feeling really ill. Patient was concerned that she might of had another mini stroke but was evaluated on the for that and was ruled out. Patient at this time though has some increased nausea and vomiting and reports just not feeling well. Patient has a history of hypertension and hyperlipidemia, bipolar disorder and PTSD. NIH score on evaluation is 0. Associated symptoms: Reports malaise, nausea and vomiting Review of Systems General: Reports: 10 or more systems reviewed and unremarkable except in HPI and below Const: Reports: malaise GI: Reports: nausea and vomiting PFSH ED PFSH: Medical History Abdominal wall bulge Anxiety Bipolar disorder with psychotic features Bipolar disorder, in partial remission, most recent episode depressed Depression Encounter for observation for other suspected diseases and conditions ruled out Post-traumatic stress disorder, chronic Problems related to lack of adequate sleep TIA (transient ischemic attack) Surgical History H/O foot surgery History of delivery History of cholecystectomy History of hysterectomy History of tubal ligation History of ventral hernia repair (~11/2019) Family History Sister Cancer Mother Diabetes Denies family history of Anesthesia complication Bleeding disorder Social History Smoking and tobacco status: former smoker Alcohol intake: never Household members: significant other Marital status: Current occupational status: employed Current occupation: [employer] History of recent travel: No NIH stroke score NIHSS: Level Of Consciousness - 1a: 0 Level Of Consciousness Questions - 1b: Both Correct Level Of Consciousness Commands - 1c: Both Correct Best Gaze - 2: Normal Visual Dueñas - 3: No Visual Loss Facial Palsy - 4: Normal Motor Arm Right - 5: No Drift Motor Arm Left - 5: No Drift Motor Leg Right - 6: No Drift Motor Leg Left - 6: No Drift Limb Ataxia - 7: Absent Sensory - 8: Normal Best Language - 9: No Aphasia Dysarthia - 10: Normal Extinction And Inattention - 11: 0 Score: Total Score: 0 Physical Exam Const: COMMON NORMALS: no acute distress and patient oriented x3 GENERAL APPEARANCE: cooperative HENMT: COMMON NORMALS: normocephalic, TM's normal bilaterally and Normal external nose present HEAD & SCALP: normal to inspection and normocephalic NOSE: Normal external nose present TYMPANIC MEMBRANE: TM's normal bilaterally MOUTH: Normal oral and palatal mucosa present THROAT: posterior oropharynx normal Eye: GENERAL EYE: appearance normal, both eyes and all related structures Neck/C-Spine: COMMON NORMALS: full ROM Lymph: LYMPHATIC: no lymphadenopathy noted Chest: COMMONS NORMALS: normal inspection of the chest Resp: COMMON NORMALS: normal respiratory effort EFFORT & INSPECTION: Yes able to speak in complete sentences Cardio: COMMON NORMALS: regular rate and regular rhythm RATE: regular rate RHYTHM: regular rhythm GI: COMMON NORMALS: non-tender : COMMON NORMALS: Yes no CVA tenderness BLADDER/KIDNEY EXAM: Yes no CVA tenderness Back/Pelvis: COMMON NORMALS: no CVA tenderness and thoracic and lumbar spine normal to inspection Extremity: COMMON NORMALS: normal to inspection Neuro: COMMON NORMALS: patient oriented x3 and moves all extremities Psych: COMMON NORMALS: mental status grossly normal and cooperative Skin: COMMON NORMALS: no rashes or lesions noted GENERAL SKIN EXAM: no rashes or lesions noted Course Vital Signs: Vital signs: Vital Signs Temperature 97.7 F 11/23/20 22:11 Pulse Rate 76 11/23/20 22:11 Respiratory Rate 17 11/23/20 22:11 Blood Pressure 120/70 11/23/20 22:11 Pulse Oximetry 96 11/23/20 22:11 MDM - Neuro Symptoms/Deficit MDM Narrative: Medical decision making narrative: Patient came back today for continued complaints of malaise and not feeling right. Patient states that she has been nauseous and has vomited and felt poorly. Patient was evaluated on the for concerns of chest pain and weakness to the left side. Review of patient's history it notes that patient does have chronic left-sided weakness due to unknown origin possible small stroke although this cannot be definitively collaborated with MRI or CT scan. Dr. Kan, neurologist, has done a thorough work-up on patient for this left-sided weakness. On exam patient's NIH score is 0. Lungs are clear to auscultation. Skin is warm and dry. Patient is alert and oriented. Patient has had some emesis while I was in the room. Differential diagnosis includes but not limited to ACS, TIA, anxiety, urinary tract infection, viral syndrome. Laboratory values were unremarkable except for urinalysis had a large amount of white blood cells and some nitrates. CT of the head and EKGs were unchanged. Chest x-ray was normal. Patient was treated with IV fluids, dedication for nausea, and 1 g of Rocephin. Believe patient symptoms are probably secondary to a urinary tract infection which is exacerbating her numbness in her left side. Patient be continued on cephalexin and ondansetron for her therapy. Patient reported understanding of care plan and felt improved after fluids and Zofran. Lab Data: Labs: Lab Results 11/23/20 11/23/20 11/23/20 Range/Units 21:58 22:25 22:25 WBC 7.2 (4.0-10.0) 10^3/ uL RBC 5.16 (4.1-5.3) 10^6/u L Hgb 14.5 (11.5-15.3) g/dL Hct 45.8 (37.0-47.0) % MCV 88.8 (81-99) fL MCH 28.1 (28.0-34.0) pg MCHC 31.7 (30.0-36.0) g/dL RDW 13.6 (12.1-15.1) % Plt Count 356 (130-400) 10^3/c mm MPV 8.8 (7.4-10.4) fL Neut % (Auto) 63.8 % Lymph % (Auto) 24.9 % Parker % (Auto) 7.9 % Eos % (Auto) 1.8 % Baso % (Auto) 0.8 % Neut # (Auto) 4.58 (1.8-7.7) 10^3/u L Lymph # (Auto) 1.8 (0.8-4.8) 10^3/u L [place] # (Auto) 0.6 (0.2-0.9) 10^3/u L Eos # (Auto) 0.1 (0.0-0.8) 10^3/u L Baso # (Auto) 0.1 (0.0-0.1) 10^3/u L Nucleated RBC % (a uto) 0 % Nucleated RBCs # 0.0 /100WBC Sodium 140 (136-145) mmol/L Potassium 4.3 (3.5-5.1) mmol/L Chloride 100 (98-107) mmol/L Carbon Dioxide 29 (22-29) mmol/L Anion Gap 15.3 (5-19) BUN 6 (6-20) mg/dL Creatinine 0.5 (0.5-0.9) mg/dL GFR Calculation 129.1 (90-130) mL/min Glucose 116 H (65-115) mg/dL Calculated Osmolal ity 289 (285-295) mOsm/k g Calcium 9.9 (8.5-10.5) mg/dL Total Bilirubin 0.2 (0.15-1.2) mg/dL AST 18 (0-32) U/L ALT 16 (0-33) U/L Alkaline Phosphata se 121 H (35-105) IU/L Troponin T Baselin e (0-10) ng/L Total Protein 7.2 (6.6-8.7) g/dL Albumin 4.4 (3.5-5.2) g/dL Globulin 2.8 (1.3-4.6) g/dL Lipase 18 (13-60) U/L Urine Color Yellow (Yellow) Urine Appearance Sl cloudy A (CLEAR) Urine pH 5 (5-7) Ur Specific Gravit y 1.020 (1.005-1.030) Urine Protein Neg (Negative) Urine Glucose (UA) Norm (Normal) Urine Ketones Negative (Negative) Urine Blood 2+ H (Negative) Urine Nitrate Positive H (Negative) Urine Bilirubin Neg (Negative) Urine Urobilinogen Norm (Negative) mg/dL Ur Leukocyte Krista ase 2+ H (Negative) Urine RBC 10-15 H (0-2) /hpf Urine WBC >100 H (0-5) /hpf Ur Squamous Epith Cells 5-10 H (0-5) /hpf Amorphous Sediment Not Reportable Urine Bacteria 4+ H (NONE) /hpf 06/18/21 Range/Units 22:25 WBC (4.0-10.0) 10^3/ uL RBC (4.1-5.3) 10^6/u L Hgb (11.5-15.3) g/dL Hct (37.0-47.0) % MCV (81-99) fL MCH (28.0-34.0) pg MCHC (30.0-36.0) g/dL RDW (12.1-15.1) % Plt Count (130-400) 10^3/c mm MPV (7.4-10.4) fL Neut % (Auto) % Lymph % (Auto) % Parker % (Auto) % Eos % (Auto) % Baso % (Auto) % Neut # (Auto) (1.8-7.7) 10^3/u L Lymph # (Auto) (0.8-4.8) 10^3/u L [place] # (Auto) (0.2-0.9) 10^3/u L Eos # (Auto) (0.0-0.8) 10^3/u L Baso # (Auto) (0.0-0.1) 10^3/u L Nucleated RBC % (a uto) % Nucleated RBCs # /100WBC Sodium (136-145) mmol/L Potassium (3.5-5.1) mmol/L Chloride (98-107) mmol/L Carbon Dioxide (22-29) mmol/L Anion Gap (5-19) BUN (6-20) mg/dL Creatinine (0.5-0.9) mg/dL GFR Calculation (90-130) mL/min Glucose (65-115) mg/dL Calculated Osmolal ity (285-295) mOsm/k g Calcium (8.5-10.5) mg/dL Total Bilirubin (0.15-1.2) mg/dL AST (0-32) U/L ALT (0-33) U/L Alkaline Phosphata se (35-105) IU/L Troponin T Baselin e 17 H (0-10) ng/L Total Protein (6.6-8.7) g/dL Albumin (3.5-5.2) g/dL Globulin (1.3-4.6) g/dL Lipase (13-60) U/L Urine Color (Yellow) Urine Appearance (CLEAR) Urine pH (5-7) Ur Specific Gravit y (1.005-1.030) Urine Protein (Negative) Urine Glucose (UA) (Normal) Urine Ketones (Negative) Urine Blood (Negative) Urine Nitrate (Negative) Urine Bilirubin (Negative) Urine Urobilinogen (Negative) mg/dL Ur Leukocyte Krista ase (Negative) Urine RBC (0-2) /hpf Urine WBC (0-5) /hpf Ur Squamous Epith Cells (0-5) /hpf Amorphous Sediment Urine Bacteria (NONE) /hpf EKG Data^: EKG 1: Attestation: I personally reviewed and interpreted this EKG as follows: (2149, EKG shows normal sinus rhythm, no ectopy or ST elevation. No previous exam at this time is available for comparison.) Discharge Plan Discharge Patient Disposition: Home Clinical Impression: UTI (urinary tract infection) Qualifiers: Urinary tract infection type: site unspecified Hematuria presence: without hematuria Qualified Code(s): N39.0 - Urinary tract infection, site not specified Condition: Stable Prescriptions: New ondansetron HCl 4 mg tablet 4 mg PO Q8H PRN (Reason: nausea and vomiting) Qty: 6 RF: 0 cephalexin 500 mg capsule 500 mg PO BID 7 Days Qty: 14 RF: 0 No Action aspirin 325 mg Tablet 325 mg PO PRN RF: 0 lisinopril 20 mg tablet 20 mg PO QAM RF: 0 Tylenol Extra Strength 500 mg Tablet 1,000 mg PO PRN RF: 0 benztropine 0.5 mg tablet 0.5 mg PO BEDTIME RF: 0 paliperidone 3 mg tablet extended release 24hr 3 mg PO BEDTIME RF: 0 Reglan 10 mg tablet 10 mg PO Q6H PRN (Reason: nausea and vomiting) Qty: 20 RF: 0 Discharge Orders: Discharge ED (Routine); Ordered 11/23/20 Ordered By: Vance Ritter Referrals: Shanika Billy DO [Primary Care Provider] - Discharge Diet: Usual diet Discharge Activity: Increase activity as tolerated Patient Instructions: Urinary Tract Infection in Women (ED), Opioid Safety Activity Restrictions/Additional Instructions: Drink plenty of fluids. Take antibiotics as directed. Activity as tolerated. Healthy diet and exercise. Follow-up with primary care in 1 week for recheck of urine. Return to the ER for new concerns. Coding Level of Care Code ED [employer] Supervisor for Chg Fwd Exam Comprehensive
[2020-11-23 22:11] VITALS: BP 120/70; PULSE 76; RESP 17; TEMP 36.5; O2SAT 96
[2020-11-23] MEDS: ondansetron 2 mg/ML SDV 2 mL 4 MG IVP (22:17)
[2020-11-23] MEDS: sodium chloride 0.9% 500 ML 999 ML IV (22:17)
[2020-11-23 22:29] LABS: Add Urine Microscopic? YES; Bilirubin Urine Neg (Negative); Blood Urine 2+ (Negative); Glucose Urine UA Norm (Normal); Ketones Urine Negative (Negative); Leukocyte Esterase Urine 2+ (Negative); Nitrate Urine Positive (Negative); Protein Urine Neg (Negative); Urine Color Yellow (Yellow); Urobilinogen Urine Norm (Negative); pH Urine 5 (5-7)
[2020-11-23 22:30] LABS: WBC Urine >100 /hpf (0-5)
[2020-11-23 22:31] LABS: Add Urine Culture? Yes; Bacteria Urine 4+ /hpf
[2020-11-23 22:35] LABS: Basophils # 0.1 10^3/uL (0.0-0.1); Basophils % 0.8 %; Eosinophils # 0.1 10^3/uL (0.0-0.8); Eosinophils % 1.8 %; Hematocrit 45.8 % (37.0-47.0); Hemoglobin 14.5 g/dL (11.5-15.3); Lymphocytes # 1.8 10^3/uL (0.8-4.8); Lymphocytes % 24.9 %; Mean Corpuscular HGB Conc 31.7 g/dL (30.0-36.0); Mean Corpuscular Hemoglobin 28.1 pg (28.0-34.0); Mean Corpuscular Volume 88.8 fL (81-99); Mean Platelet Volume 8.8 fL (7.4-10.4); Monocytes # 0.6 10^3/uL (0.2-0.9); Monocytes % 7.9 %; Neutrophils # 4.58 10^3/uL (1.8-7.7); Neutrophils % 63.8 %; Nucleated Red Blood Cells % 0 %; Platelet Count 356 10^3/cmm (130-400); Red Blood Count 5.16 10^6/uL (4.1-5.3); Red Cell Distribution Width 13.6 % (12.1-15.1); White Blood Count 7.2 10^3/uL (4.0-10.0)
[2020-11-23 22:50] LABS: Troponin(5th) Baseline 17 ng/L (0-10)
[2020-11-23 22:52] LABS: Alanine Aminotransferase 16 U/L (0-33); Albumin Level 4.4 g/dL (3.5-5.2); Alkaline Phosphatase 121 IU/L (35-105); Anion Gap 15.3 (5-19); Aspartate Amino Transferase 18 U/L (0-32); Blood Urea Nitrogen 6 mg/dL (6-20); Calcium 9.9 mg/dL (8.5-10.5); Carbon Dioxide 29 mmol/L (22-29); Chloride 100 mmol/L (98-107); Globulin 2.8 g/dL (1.3-4.6); Glomerular Filtration Rate 129.1 mL/min (90-130); Glucose 116 mg/dL (65-115); Lipase 18 U/L (13-60); Osmolality Calculated 289 mOsm/kg (285-295); Potassium 4.3 mmol/L (3.5-5.1); Sodium 140 mmol/L (136-145); Total Bilirubin 0.2 mg/dL (0.15-1.2); Total Protein 7.2 g/dL (6.6-8.7)
[2020-11-23] MEDS: cefTRIAXone 1,000 MG in sodium chloride 0.9% (plus) 50 ML 100 MG IV (23:01)
[2020-11-24 00:12] VITALS: BP 120/70; PULSE 76; RESP 17; TEMP 36.5; O2SAT 96
== END 2020-11-24 | disposition home or self-care (01) ==
PROVIDERS: Emergency Provider Nurse Practitioner Family; PCP Internal Medicine
DX: N39.0 Urinary tract infection, site not specified (principal); Z79.82 Long term (current) use of aspirin; Z86.73 Personal history of transient ischemic attack (TIA), and cerebral infarction without residual deficits; Z87.891 Personal history of nicotine dependence
CPT/HCPCS: 70450; 71045; 80053; 81001; 83690; 84484; 85025; 87077; 87086; 87186; 93005; 96365; 96375; 99284; J0696; J2405; J7040

== ENCOUNTER → 2021-02-04 13:38 | Outpatient (BNVA) | payer SELFPAY | PROVIDERS: PCP Internal Medicine; Visit Provider Specialist | DX: G37.9 Demyelinating disease of central nervous system, unspecified (principal); R20.0 Anesthesia of skin; H55.09 Other forms of nystagmus; G24.5 Blepharospasm | CPT/HCPCS: 99214; 99215 ==

== ENCOUNTER 2021-02-18 08:31 | Outpatient (CLI) | payer SELFPAY ==
--- NOTE | 2021-02-18 08:45 | MR_ITS ---
WS: [id number] MRI BRAIN WITH HIGH-RESOLUTION IMAGING THROUGH THE INTERNAL AUDITORY CANALS WITHOUT AND WITH CONTRAST HISTORY: R42 - Dizziness and giddiness COMPARISON: 05/02/2020 TECHNIQUE: Multiplanar, multisequence imaging is performed through the brain. Additional 3 mm imaging performed in multiple planes through the internal auditory canal. Postcontrast imaging with 12 ml's of MultiHance. No acute intracranial hemorrhage, midline shift, edema or mass effect. Focal area of increased T2 signal involving the LEFT cerebral peduncle and medial LEFT temporal lobe. No increase in the signal abnormality or progression. There is no associated hemorrhage. A few addit ional scattered cortical white matter lesions slightly greater throughout the LEFT hemisphere. Ventricles and extra-axial spaces are normal. No inferior displacement of cerebellar tonsils. Clivus and pituitary gland are normal. Minimal periph erally enhancing cystic nodule in the retropharynx measures 6 mm. Internal and external auditory canals: Unremarkable. Cranial nerves VII and VIII complexes: Unremarkable. No enhancement or mass. Cerebellopontine angles: Normal. Paranasal sinuses: Normal. Mastoid air cells: Normal. Calvarium and scalp: Normal. Visualized [place] and dural venous sinuses demonstrate no abnormality. MR/MR iac's wo/w con* [id number] IMPRESSION: 1. Negative MRI internal auditory canals. No mass or abnormal enhancement. 2. Stable T2 and FLAIR signal abnormalities within the LEFT cerebral peduncle and medial LEFT temporal lobe. No change since 05/02/2020. 3. Tornwaldt cyst.
[2021-02-18] MEDS: gadobenate dimeglumine 20 mL vial IV (10:22)
== END 2021-02-18 08:32 | disposition home or self-care (01) ==
LOC: RADSHAW 08:35
PROVIDERS: PCP Internal Medicine; Visit Provider Specialist
DX: R42 Dizziness and giddiness (principal); I63.9 Cerebral infarction, unspecified
CPT/HCPCS: 70553; A9577

== ENCOUNTER → 2021-02-26 15:56 | Outpatient (BNVA) | payer OTHER, SELFPAY | PROVIDERS: PCP Internal Medicine; Visit Provider Psychiatry & Neurology Psychiatry | DX: F32.9 Major depressive disorder, single episode, unspecified (principal); F31.75 Bipolar disorder, in partial remission, most recent episode depressed; F43.12 Post-traumatic stress disorder, chronic; F41.9 Anxiety disorder, unspecified; Z03.89 Encounter for observation for other suspected diseases and conditions ruled out; Z79.899 Other long term (current) drug therapy | CPT/HCPCS: 80053; 80061; 83036; 84439; 84443; 85025 ==

== ENCOUNTER → 2021-03-28 12:47 | Outpatient (BNVA) | payer SELFPAY | PROVIDERS: PCP Internal Medicine; Visit Provider Specialist | DX: G24.5 Blepharospasm (principal) | CPT/HCPCS: 64612 ==

== ENCOUNTER → 2021-07-18 11:58 | Outpatient (BNVA) | payer OTHER, SELFPAY | PROVIDERS: PCP Internal Medicine; Visit Provider Psychiatry & Neurology Psychiatry | DX: Z03.89 Encounter for observation for other suspected diseases and conditions ruled out (principal); Z79.899 Other long term (current) drug therapy; F31.75 Bipolar disorder, in partial remission, most recent episode depressed; F41.9 Anxiety disorder, unspecified | CPT/HCPCS: 80053; 80061; 83036; 84443; 85025 ==

== ENCOUNTER 2021-10-16 14:10 | Emergency (ER) | payer SELFPAY ==
[2021-10-16 14:20] VITALS: BP 136/77; PULSE 78; RESP 16; TEMP 36.4; O2SAT 98; BMI 24.6
--- NOTE | 2021-10-16 15:05 | W.ED.NEUROSD ---
HPI - Neuro Symptoms/Deficit General: Chief Complaint: Neuro Symptoms/Deficit Stated Complaint: Strokelike symptoms Time Seen by Provider: 10/16/21 14:49 Source: patient Limitations: no limitations History of Present Illness: 56-year-old female presents emergency room complaining of right-sided weakness that began about 4 hours prior to when I saw her. Initial exam she has a stroke score of 2. She was at rest when her symptoms began she also was complaining of little bit of chest discomfort. She states she has had multiple TIAs in the past. They did not really find a reason according to her recollection.Reviewing the old records CTA echocardiogram Holter monitor were all negative there is an MRI of her head there is a question of possible MS which she was worked up for does not we will call Dr. Kan thought she had MS according to her office notes. Onset (ago): hour(s) Last Observed Normal: 11:00 Location: right face, right arm and right leg Severity: mild Quality: weak Relieving factors: none Exacerbating factors: none Context: sudden onset Associated symptoms: Reports chest pain and weakness; Deny cough, diaphoresis, fevers/chills, headache(s), anorexia, malaise, nausea, seizures, short of breath, syncope, tingling, vertigo or vomiting Treatments Prior to Arrival: none Review of Systems Const: Denies: fever(s), chills, malaise or diaphoresis ENMT: Denies: throat pain, ear or mastoid pain, nasal discharge or nasal congestion Card: Reports: chest pain; Denies: palpitations or syncope Resp: Denies: dyspnea, productive cough or non-productive cough GI: Denies: abdominal pain, nausea or vomiting : Denies: flank pain, difficulty voiding, dysuria, urinary frequency or urinary urgency Skin/Breast: Denies: rash or pruritus Neuro: Denies: headache(s) or vertigo PFSH ED PFSH: Medical History Abdominal wall bulge Anxiety Bipolar disorder with psychotic features Bipolar disorder, in partial remission, most recent episode depressed Depression Encounter for observation for other suspected diseases and conditions ruled out MCI (mild cognitive impairment) 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 Post-traumatic stress disorder, chronic Problems related to lack of adequate sleep Psychiatric care TIA (transient ischemic attack) Surgical History H/O foot surgery History of delivery History of cholecystectomy History of hysterectomy History of tubal ligation History of ventral hernia repair (~11/2019) Family History Sister Cancer Mother Diabetes Denies family history of Anesthesia complication Bleeding disorder Social History Alcohol intake: never Household members: significant other Marital status: Current occupational status: employed Current occupation: [employer] History of recent travel: No NIH stroke score NIHSS: Level Of Consciousness - 1a: 0 Level Of Consciousness Questions - 1b: Both Correct Level Of Consciousness Commands - 1c: Both Correct Best Gaze - 2: Normal Visual Dueñas - 3: No Visual Loss Facial Palsy - 4: Normal Motor Arm Right - 5: No Drift Motor Arm Left - 5: No Drift Motor Leg Right - 6: No Drift Motor Leg Left - 6: No Drift Limb Ataxia - 7: Present In One Limb Sensory - 8: Mild To Moderate Loss Best Language - 9: No Aphasia Dysarthia - 10: Normal Extinction And Inattention - 11: 0 Score: Total Score: 2 Physical Exam Const: COMMON NORMALS: no acute distress GENERAL APPEARANCE: cooperative and comfortable ORIENTATION/CONSCIOUSNESS: Yes awake, Yes oriented to person, Yes oriented to place and Yes oriented to time HENMT: COMMON NORMALS: normocephalic, atraumatic and hearing grossly normal bilaterally HEAD & SCALP: normocephalic and atraumatic Neck/C-Spine: COMMON NORMALS: no JVD Resp: COMMON NORMALS: normal respiratory effort, No retractions, No use of accessory muscles and clear to auscultation bilaterally AUSCULTATION: clear to auscultation bilaterally Cardio: COMMON NORMALS: no JVD, regular rate, regular rhythm and No murmurs present (Cardio) RATE: regular rate RHYTHM: regular rhythm GI: COMMON NORMALS: Soft to palpation and No hepatosplenomegaly present AUSCULTATION: Yes normoactive bowel sounds PALPATION: Yes Soft to palpation, No Tenderness to palpation present (GI), No Guarding due to palpation present (GI) and Yes No hepatosplenomegaly present Extremity: COMMON NORMALS: normal to inspection, capillary refill normal, no clubbing, cyanosis or edema, no calf tenderness and no pedal edema Neuro: SENSORIUM/ORIENTATION: Yes oriented to person, Yes oriented to place and Yes oriented to time Skin: COMMON NORMALS: no rashes or lesions noted GENERAL SKIN EXAM: no rashes or lesions noted Course Vital Signs: Vital signs: Vital Signs Temperature 97.5 F L 10/16/21 14:20 Pulse Rate 72 10/16/21 18:25 Respiratory Rate 22 H 10/16/21 18:25 Blood Pressure 145/85 10/16/21 18:25 Pulse Oximetry 98 10/16/21 18:25 MDM - Neuro Symptoms/Deficit Medical Decision Making Reviewed stroke score finding with patient remainder the exam was abnormal. She has had the symptoms for the last 2 days. She has no findings of stroke at this time we will go ahead and discharge patient home. Return if has problems Medical Records I reviewed the patient's medical records. Lab Data I reviewed the patient's lab results. : 10/16/21 15:45 10/16/21 16:25 Radiology Impressions Chest X-Ray 10/16/21 15:15 IMPRESSION: Unremarkable portable chest. Head CT 10/16/21 15:15 IMPRESSION: No acute intracranial abnormality. Laboratory Results WBC 4.0 10^3/uL (4.0-10.0) 10/16/21 15:45 RBC 4.40 10^6/uL (4.1-5.3) 10/16/21 15:45 Hgb 12.9 g/dL (11.5-15.3) 10/16/21 15:45 Hct 39.7 % (37.0-47.0) 10/16/21 15:45 MCV 90.2 fl (81-99) 10/16/21 15:45 MCH 29.3 pg (28.0-34.0) 10/16/21 15:45 MCHC 32.5 g/dL (30.0-36.0) 10/16/21 15:45 RDW 13.4 % (12.1-15.1) 10/16/21 15:45 Plt Count 190 10^3/cmm (130-400) 10/16/21 15:45 MPV 9.4 fL (7.4-10.4) 10/16/21 15:45 Neut % (Auto) 51.4 % 10/16/21 15:45 Lymph % (Auto) 36.8 % 10/16/21 15:45 [place] % (Auto) 9.5 % 10/16/21 15:45 Eos % (Auto) 1.5 % 10/16/21 15:45 Baso % (Auto) 0.3 % 10/16/21 15:45 Neut # (Auto) 2.06 10^3/uL (1.8-7.7) 10/16/21 15:45 Lymph # (Auto) 1.5 10^3/uL (0.8-4.8) 10/16/21 15:45 [place] # (Auto) 0.4 10^3/uL (0.2-0.9) 10/16/21 15:45 Eos # (Auto) 0.1 10^3/uL (0.0-0.8) 10/16/21 15:45 Baso # (Auto) 0.0 10^3/uL (0.0-0.1) 10/16/21 15:45 Nucleated RBC % (auto) 0 % 10/16/21 15:45 Nucleated RBCs # 0.0 /100WBC 10/16/21 15:45 Sodium 139 mmol/L (136-145) 10/16/21 16:25 Potassium 3.3 mmol/L (3.5-5.1) L 10/16/21 16:25 Chloride 107 mmol/L (98-107) 10/16/21 16:25 Carbon Dioxide 24 mmol/L (22-29) 10/16/21 16:25 Anion Gap 11.3 (5-19) 10/16/21 16:25 BUN 5 mg/dL (6-20) L 10/16/21 16:25 Creatinine 0.7 mg/dL (0.5-0.9) 10/16/21 16:25 GFR Calculation 87.2 mL/min (90-130) L 10/16/21 16:25 Glucose 102 mg/dL (65-115) 10/16/21 16:25 POC Glucose 98 mg/dL (70-110) 10/16/21 15:47 Calculated Osmolality 285 mOsm/kg (285-295) 10/16/21 16:25 Calcium 8.9 mg/dL (8.5-10.5) 10/16/21 16:25 Total Bilirubin 0.2 mg/dL (0.15-1.2) 10/16/21 16:25 AST 14 U/L (0-32) 10/16/21 16:25 ALT 10 U/L (0-33) 10/16/21 16:25 Alkaline Phosphatase 78 IU/L (35-105) 10/16/21 16:25 Troponin T Baseline 10 ng/L (0-10) 10/16/21 16:25 Total Protein 6.2 g/dL (6.6-8.7) L 10/16/21 16:25 Albumin 4.0 g/dL (3.5-5.2) 10/16/21 16:25 Globulin 2.2 g/dL (1.3-4.6) 10/16/21 16:25 Urine Color Yellow (Yellow) 10/16/21 15:45 Urine Appearance Clear (CLEAR) 10/16/21 15:45 Urine pH 6.5 (5-7) 10/16/21 15:45 Ur Specific [place] 1.005 (1.005-1.030) 10/16/21 15:45 Urine Protein Neg (Negative) 10/16/21 15:45 Urine Glucose (UA) Norm (Normal) 10/16/21 15:45 Urine Ketones Negative (Negative) 10/16/21 15:45 Urine Blood Neg (Negative) 10/16/21 15:45 Urine Nitrate Negative (Negative) 10/16/21 15:45 Urine Bilirubin Neg (Negative) 10/16/21 15:45 Urine Urobilinogen Norm mg/dL (Negative) 10/16/21 15:45 Ur Leukocyte Esterase Negative (Negative) 10/16/21 15:45 Discharge Plan Discharge Patient Disposition: Home Clinical Impression: Weakness Condition: Stable Prescriptions: No Action lorazepam 1 mg tablet 1 mg PO TID PRN (Reason: anxiety) 30 Days Qty: 90 1RF benztropine 0.5 mg tablet 0.5 mg PO BID 30 Days Qty: 60 3RF donepezil [Aricept] 5 mg tablet 5 mg PO DAILY 30 Days Qty: 30 3RF lamotrigine 100 mg tablet 150 mg PO DAILY 30 Days Qty: 45 3RF paliperidone 3 mg tablet extended release 24hr 3 mg PO BEDTIME 30 Days Qty: 30 3RF lisinopril 20 mg tablet 20 mg PO QAM 0RF acetaminophen [Tylenol Extra Strength] 500 mg Tablet 1,000 mg PO DAILY PRN (Reason: Pain) 0RF Discharge Orders: Discharge ED (Routine); Ordered 10/16/21 Ordered By: Baldomero Kraus Referrals: Shanika Billy DO [Primary Care Provider] - Discharge Diet: Usual diet Discharge Activity: Increase activity as tolerated Patient Instructions: Opioid Safety Activity Restrictions/Additional Instructions: Follow-up with Dr. Kan within the next 1 to 2 weeks Coding Level of Care Code ED [employer] Repairer for Chg Fwd Exam Comprehensive
[2021-10-16 15:12] VITALS: BP 126/59; PULSE 76; RESP 18; O2SAT 98
--- NOTE | 2021-10-16 15:15 | XR_ITS ---
WS: [id number] PORTABLE CHEST HISTORY: dyspnea/cough COMPARISON: 11/23/2020 Lungs are clear and well expanded. No pleural effusion or pneumothorax. Cardiac size: Normal. Mediastinum/Aorta: Normal mediastinum. No osseous abnormality seen. XR/XR chest 1V portable [id number] IMPRESSION: Unremarkable portable chest.
--- NOTE | 2021-10-16 15:15 | CTR_ITS ---
PROCEDURE INFORMATION: Exam: CT Head Without Contrast Exam date and time: 10/16/2021 4:49 PM Age: 56 years old Clinical indication: Weakness, extremity; Right; Additional info: R sided weakness TECHNIQUE: Imaging protocol: Computed tomography of the head without contrast. Radiation optimization: All CT scans at this facility use at least one of these dose optimization techniques: automated exposure control; mA and/or kV adjustment per patient size (includes targeted exams where dose is matched to clinical indication); or iterative reconstruction. COMPARISON: CT head wo con* [id number] 11/23/2020 10:06 PM RADIATION DOSE METRICS: Total DLP (mGy-cm): 785.28 FINDINGS: Brain: Normal. No hemorrhage. Unremarkable white matter. No mass effect. Cerebral ventricles: No ventriculomegaly. Paranasal sinuses: Visualized sinuses are unremarkable. No fluid levels. Mastoid air cells: Visualized mastoid air cells are well aerated. Bones/joints: Unremarkable. No acute fracture. Soft tissues: Unremarkable. CT/CT head wo con* [id number] IMPRESSION: No acute intracranial abnormality.
--- NOTE | 2021-10-16 15:20 | ECG_ITS ---
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 Measurements Intervals [place] Rate: 71 P: 72 NV: 145 QRS: 17 QRSD: 94 T: 47 QT: 371 QTc: 404 Interpretive Statements SINUS RHYTHM Compared to ECG 11/23/2020 21:50:38 No significant changes Electronically Signed On 10-16-2021 22:32:34 CDT by Yodit Nunez M.D. [id number]
[2021-10-16 15:54] LABS: Glucose Point of Care 98 mg/dL (70-110)
[2021-10-16 16:00] LABS: Add Urine Microscopic? NO; Charge for UA Resulting for Rev
[2021-10-16 16:04] LABS: Basophils % 0.3 %; Eosinophils # 0.1 10^3/uL (0.0-0.8); Eosinophils % 1.5 %; Hematocrit 39.7 % (37.0-47.0); Hemoglobin 12.9 g/dL (11.5-15.3); Lymphocytes # 1.5 10^3/uL (0.8-4.8); Lymphocytes % 36.8 %; Mean Corpuscular HGB Conc 32.5 g/dL (30.0-36.0); Mean Corpuscular Hemoglobin 29.3 pg (28.0-34.0); Mean Corpuscular Volume 90.2 fl (81-99); Mean Platelet Volume 9.4 fL (7.4-10.4); Monocytes # 0.4 10^3/uL (0.2-0.9); Monocytes % 9.5 %; Neutrophils # 2.06 10^3/uL (1.8-7.7); Neutrophils % 51.4 %; Nucleated Red Blood Cells % 0 %; Platelet Count 190 10^3/cmm (130-400); Red Cell Distribution Width 13.4 % (12.1-15.1)
[2021-10-16 16:27] LABS: Bilirubin Urine Neg (Negative); Blood Urine Neg (Negative); Glucose Urine UA Norm (Normal); Ketones Urine Negative (Negative); Leukocyte Esterase Urine Negative (Negative); Nitrate Urine Negative (Negative); Protein Urine Neg (Negative); Specific Gravity, Urine 1.005 (1.005-1.030); Urine Appearance Clear (CLEAR); Urine Color Yellow (Yellow); Urobilinogen Urine Norm (Negative); pH Urine 6.5 (5-7)
[2021-10-16 16:55] LABS: Alanine Aminotransferase 10 U/L (0-33); Alkaline Phosphatase 78 IU/L (35-105); Anion Gap 11.3 (5-19); Aspartate Amino Transferase 14 U/L (0-32); Blood Urea Nitrogen 5 mg/dL (6-20); Calcium 8.9 mg/dL (8.5-10.5); Carbon Dioxide 24 mmol/L (22-29); Chloride 107 mmol/L (98-107); Globulin 2.2 g/dL (1.3-4.6); Glomerular Filtration Rate 87.2 mL/min (90-130); Glucose 102 mg/dL (65-115); Osmolality Calculated 285 mOsm/kg (285-295); Potassium 3.3 mmol/L (3.5-5.1); Sodium 139 mmol/L (136-145); Total Bilirubin 0.2 mg/dL (0.15-1.2); Total Protein 6.2 g/dL (6.6-8.7)
[2021-10-16 17:00] VITALS: BP 116/79; PULSE 72; RESP 16; O2SAT 97
[2021-10-16 17:10] LABS: Troponin(5th) Baseline 10 ng/L (0-10)
--- NOTE | 2021-10-16 17:20 | ECG_ITS ---
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 Measurements Intervals [place] Rate: 64 P: 69 ME: 149 QRS: 23 QRSD: 102 T: 51 QT: 385 QTc: 399 Interpretive Statements SINUS RHYTHM Compared to ECG 10/16/2021 15:52:32 No significant changes Electronically Signed On 10-16-2021 22:49:19 CDT by Yodit Nunez M.D. [id number]
[2021-10-16 18:25] VITALS: BP 145/85; PULSE 72; RESP 22; O2SAT 98
--- NOTE | 2021-10-17 14:40 | DCPLANNER ---
Addendum entered by Judy Carrillo 11/01/21 18:07: Appointment cancelled Addendum entered by Judy Carrillo 10/24/21 12:49: Patient has a follow up appointment scheduled for Saturday, October 30, 2021 at 2:[address] Kan. Clinic will call patient with appointment information. Original Note: manager of production had message to schedule a follow up appointment for patient with neurology. manager of production sent patients information to the front office of neurology. Patients information will be printed and reviewed. Clinic will call patient with appointment information.
== END 2021-10-16 18:28 | disposition home or self-care (01) ==
PROVIDERS: Emergency Provider Family Medicine; PCP Internal Medicine
DX: R53.1 Weakness (principal)
CPT/HCPCS: 36416; 70450; 71045; 80053; 81003; 82962; 84484; 85025; 93005; 99284

== ENCOUNTER → 2022-06-05 11:23 | Outpatient (BNVA) | payer OTHER, SELFPAY | PROVIDERS: PCP Internal Medicine; Visit Provider Psychiatry & Neurology Psychiatry | DX: F31.75 Bipolar disorder, in partial remission, most recent episode depressed (principal); Z79.899 Other long term (current) drug therapy | CPT/HCPCS: 80053; 80061; 83036; 84443 ==

== ENCOUNTER 2022-09-11 16:28 | Emergency (ER) | payer OTHER, SELFPAY ==
[2022-09-11 16:32] VITALS: BP 127/83; PULSE 71; RESP 16; TEMP 36.7; O2SAT 100
--- NOTE | 2022-09-11 16:55 | XRR_ITS ---
PROCEDURE INFORMATION: Exam: XR Right Ankle Exam date and time: 09/11/2022 5:10 PM Age: 57 years old Clinical indication: Injury or trauma; Other: Dropped something on it last week; Other: Pain; Additional info: Ankle injury TECHNIQUE: Imaging protocol: Radiologic exam of the right ankle. Views: 3 or more views. COMPARISON: MR foot RT wo/w con [id number] 05/02/2019 8:51 AM FINDINGS: Bones/joints: Mild tibiotalar joint space narrowing. Alignment is anatomic. No acute displaced fracture. Small ankle joint effusion. Soft tissues: Normal. XR/XR ankle RT min 3V* [id number] IMPRESSION: Mild tibiotalar joint arthritis with small ankle joint effusion. No acute osseous injury.
--- NOTE | 2022-09-12 01:22 | W.ED.EXTPRO ---
HPI - Extremity Problem General: Chief complaint: Extremity Injury, Lower Stated complaint: right ankle pain Time Seen by Provider: 09/11/22 17:04 History of Present Illness: Patient is in today for pain on the right lateral ankle. She states that approximately a week ago she dropped a portillo scoop and it hit the side of her ankle. She reports that she has had swelling and pain since that time. She did go to urgent care on Thursday and they told her she had an ankle sprain they did not x-ray or do any further testing at that time. She reports that she has had persisting swelling is still painful to walk but she is able to bear weight. Associated symptoms: Deny chest pain or fever(s) Review of Systems Const: Denies: fever(s) or chills Card: Denies: chest pain or palpitations Resp: Denies: dyspnea, productive cough or non-productive cough Musc: Reports: extremity pain and joint swelling PFS ED PFSH: Medical History Abdominal wall bulge Anxiety Bipolar disorder with psychotic features Bipolar disorder, in partial remission, most recent episode depressed Depression Encounter for observation for other suspected diseases and conditions ruled out MCI (mild cognitive impairment) Other senior living (current) drug therapy Post-traumatic stress disorder, chronic Problems related to lack of adequate sleep Problems related to lack of adequate sleep Psychiatric care TIA (transient ischemic attack) Surgical History H/O foot surgery History of delivery History of cholecystectomy History of hysterectomy History of tubal ligation History of ventral hernia repair (~11/2019) Family History Sister Cancer Mother Diabetes Denies family history of Anesthesia complication Bleeding disorder Social History Smoking and tobacco status: never smoked Alcohol intake: never Household members: significant other Marital status: Current occupational status: employed Current occupation: [employer] Physical Exam Const: COMMON NORMALS: no acute distress, patient oriented x3 and alert Resp: COMMON NORMALS: normal respiratory effort and No use of accessory muscles Extremity: NARRATIVE EXTREMITY EXAM: Tenderness to palpation right lateral malleolus with mild edema. Patient is bearing weight on the ankle with a slight limp. Pedal pulses intact. No obvious bony deformity. Neuro: COMMON NORMALS: patient oriented x3 SENSORIUM/ORIENTATION: Yes alert Course Vital Signs: Vital signs: Vital Signs Temperature 98.1 F 09/11/22 16:32 Pulse Rate 71 09/11/22 16:32 Respiratory Rate 16 09/11/22 16:32 Blood Pressure 127/83 09/11/22 16:32 Pulse Oximetry 100 09/11/22 16:32 MDM - Extremity (Nontraumatic) Medical Decision Making Patient is in today for pain of her right lateral ankle after dropping a portillo scoop on it approximately 1 week ago. Patient is able to bear weight. There is mild swelling about the ankle. Tenderness to palpation right lateral malleolus. X-ray shows mild degenerative changes and an ankle joint effusion with no acute osseous injury. Helped patient to wrap her ankle with the brace that she had brought in. Provide patient with crutches keep her off of the ankle for the next 3 days and then advance weightbearing as tolerated. If symptoms are not improving over the course of 1 week I recommend to follow-up with primary care provider for ongoing evaluation and potential referral to orthopedics. Return to the ER as needed for new or worsening symptoms Lab Data Radiology Impressions Ankle X-Ray 09/11/22 16:55 IMPRESSION: Mild tibiotalar joint arthritis with small ankle joint effusion. No acute osseous injury. Discharge Plan Discharge Patient Disposition: Home Clinical Impression: Ankle sprain and strain Ankle joint effusion Qualifiers: Laterality: right Qualified Code(s): M25.471 - Effusion, right ankle Condition: Stable Prescriptions: No Action risperidone 1 mg tablet 1.5 mg PO .qhs 30 Days Qty: 45 3RF lamotrigine 100 mg tablet 100 mg PO DAILY 30 Days Qty: 30 3RF zolpidem 5 mg tablet 5 mg PO .qhs 30 Days Qty: 30 3RF paroxetine HCl 10 mg tablet 10 mg PO DAILY 30 Days Qty: 30 3RF lorazepam 1 mg tablet 1 mg PO DAILY PRN (Reason: anxiety) 30 Days Qty: 30 3RF lisinopril 20 mg tablet 20 mg PO QAM acetaminophen [Tylenol Extra Strength] 500 mg Tablet 1,000 mg PO DAILY PRN (Reason: Pain) Discharge Orders: Discharge ED (Routine); Ordered 09/11/22 Ordered By: Karon Larios Referrals: Naheed Dias DO [Primary Care Provider] - Discharge Diet: Usual diet Discharge Activity: Limit activity as instructed Patient Instructions: Ankle Sprain (ED), Swollen Ankle Joint (ED) Activity Restrictions/Additional Instructions: Use crutches for the next 3 days to reduce weightbearing on the injured ankle then advance weightbearing as tolerated.. Elevate, rest, ice the ankle. You may return to work on Thursday. If you are not noticing any improvement over the course of 1 week follow-up with your primary care provider to consider referral to orthopedics. Return to the emergency department as needed for any new or worsening symptoms Stand Alone Forms: Work/School Release Coding Level of Care Code ED Wrapper Opener for Galilea Jackman
== END 2022-09-11 18:29 | disposition home or self-care (01) ==
PROVIDERS: Emergency Provider Nurse Practitioner Family; PCP Family Medicine
DX: M25.471 Effusion, right ankle (principal); S93.401A Sprain of unspecified ligament of right ankle, initial encounter; S96.911A Strain of unspecified muscle and tendon at ankle and foot level, right foot, initial encounter; Z86.73 Personal history of transient ischemic attack (TIA), and cerebral infarction without residual deficits; W20.8XXA Other cause of strike by thrown, projected or falling object, initial encounter
CPT/HCPCS: 73610; 99283; E0114

== ENCOUNTER → 2022-11-20 10:32 | Outpatient (BNVA) | payer OTHER, SELFPAY | PROVIDERS: PCP Family Medicine; Visit Provider Psychiatry & Neurology Psychiatry | DX: Z79.899 Other long term (current) drug therapy (principal) | CPT/HCPCS: 80053; 80061; 83036; 84443; 85025 ==

== ENCOUNTER 2023-01-21 16:11 | Outpatient (CLI) | payer SELFPAY ==
--- NOTE | 2023-01-21 | XRR_ITS ---
PROCEDURE INFORMATION: Exam: XR Chest Exam date and time: 01/21/2023 4:27 PM Age: 57 years old Clinical indication: Cough TECHNIQUE: Imaging protocol: Radiologic exam of the chest. Views: 2 views. COMPARISON: CR XR chest 1V portable [id number] 10/16/2021 3:24 PM FINDINGS: Lungs: Unremarkable. No consolidation. Pleural spaces: Unremarkable. No pleural effusion. No pneumothorax. Heart/Mediastinum: Unremarkable. No cardiomegaly. Bones/joints: Unremarkable. XR/XR chest 2V* [id number] IMPRESSION: No acute findings.
== END 2023-01-21 16:12 | disposition home or self-care (01) ==
PROVIDERS: PCP Family Medicine; Visit Provider Nurse Practitioner Family
DX: R05.9 Cough, unspecified (principal)
CPT/HCPCS: 71046

== ENCOUNTER 2023-04-24 10:34 | Outpatient (CLI) | payer OTHER, SELFPAY ==
--- NOTE | 2023-04-24 10:46 | MM_ITS ---
WS: [id number] VIEWS: MLO and CC views both breasts. 3D digital tomosynthesis is also included in this exam. Comparison made with prior exam of 03/26/2010, 03/16/2012, 03/10/2014, 09/06/2014, 05/06/2016, 05/28/2017 , 05/11/2018, 09/03/2018, 10/07/2019, 04/12/2020.. Findings: There was no sign of mass, architectural distortion or suspicious calcification in either breast. Sta ble appearing fibroglandular densities in both breasts. The breasts are extremely dense which lowers the sensitivity of mammography. Impression: MM/[place] [id number] BI-RADS: 2-Benign finding. 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
== END 2023-04-24 10:35 | disposition home or self-care (01) ==
LOC: RAD 10:34
PROVIDERS: PCP Family Medicine; Visit Provider Family Medicine
DX: Z12.31 Encounter for screening mammogram for malignant neoplasm of breast (principal)
CPT/HCPCS: 77063; 77067

== ENCOUNTER 2023-07-22 17:24 | Emergency (ER) | payer SELFPAY ==
[2023-07-22 17:37] VITALS: BP 134/87; PULSE 81; RESP 16; TEMP 36.7; O2SAT 98
[2023-07-22 18:00] LABS: Add Urine Microscopic? NO; Charge for UA Resulting for Rev
--- NOTE | 2023-07-22 18:04 | ED_ITS ---
HPI - Abdominal Pain 2 General: Chief Complaint: Abdominal Pain Stated Complaint: right side pains Time Seen by Provider: 07/22/23 17:52 History of Present Illness: 58-year-old female comes in today with r ight lower quadrant abdominal pain. Patient reports pain started yesterday. Patient has a history of gallbladder removal, hernia repair, and partial hysterectomy. Patient has a problem with high blood pressure. Patient does see neurology for demyelinating syndrome. Patient reports nausea but no vomiting. Patient reports no changes in bowel movements or urination. Patient reports no blood in the toilet. Associated Symptoms: Reports nausea Review of Systems 2 General: Reports: 10 or more systems reviewed and unremarkable except in HPI and below GI: Reports: abdominal pain and nausea PFSH ED 2 PFSH: Medical History Bipolar I disorder, most recent episode mixed, severe with psychotic features Diagnosed in July 2013 Psychiatric care Abdominal wall bulge Post-traumatic stress disorder, chronic Surgical History History of ventral hernia repair (~11/2019) History of delivery H/O foot surgery History of tubal ligation History of hysterectomy History of cholecystectomy Family History Sister Cancer Mother Diabetes Denies family history of Anesthesia complication Bleeding disorder Social History Smoking and tobacco/nicotine status: never used tobacco/nicotine Alcohol intake: never Substance/Drug Use: never Household members: significant other Marital status: Current occupational status: employed Current occupation: [employer] Physical Exam 2 Const: COMMON NORMALS: alert HENMT: COMMON NORMALS: normocephalic HEAD & SCALP: normocephalic MOUTH: Normal oral and palatal mucosa present Neck/C-Spine: COMMON NORMALS: full ROM Resp: COMMON NORMALS: normal respiratory effort and clear to auscultation bilaterally AUSCULTATION: clear to auscultation bilaterally Cardio: COMMON NORMALS: regular rate and regular rhythm RATE: regular rate RHYTHM: regular rhythm GI: COMMON NORMALS: Soft to palpation AUSCULTATION: Yes normoactive bowel sounds PALPATION: Yes Soft to palpation, Yes Tenderness to palpation present (GI) Details: RLQ and RUQ, No Guarding due to palpation present (GI) and No Rebound tenderness present : BLADDER/KIDNEY EXAM: Yes CVA tenderness on the right Back/Pelvis: GENERAL BACK: Yes CVA tenderness Extremity: COMMON NORMALS: normal to inspection Neuro: SENSORIUM/ORIENTATION: Yes alert Skin: COMMON NORMALS: turgor normal GENERAL SKIN EXAM: turgor normal Course 2 Vital Signs: Vital signs: Vital Signs Temperature 98.1 F 07/22/23 17:37 Pulse Rate 84 07/22/23 19:12 Respiratory Rate 14 07/22/23 19:12 Blood Pressure 139/83 07/22/23 19:12 Pulse Oximetry 98 07/22/23 19:12 Oxygen Delivery Me thod Room Air 07/22/23 19:12 MDM - Abdominal Pain Medical Decision Making 58-year-old female comes in today with right lower quadrant abdominal pain x 2 days. Patient reports nausea without vomiting. Patient reports normal bowel movements. Patient reports no changes in urination. On exam abdomen soft with right lower quadrant and right upper quadrant abdominal tenderness on palpation. No rebound tenderness is noted. No guarding is noted. Patient has right CVA tenderness on percussion. Vital signs are normal. Differential diagnosis includes not limited to renal calculi, appendicitis, diverticulitis, surgical adhesions, constipation. CBC, CMP, and urinalysis are negative. CT of the abdomen and pelvis noted no acute inflammatory process but a large ventral hernia. No signs of obstruction was noted in the bowel. Reviewed exam with patient recommended treatment follow-up for further evaluation and care of ventral hernia. Patient reported understanding. Lab Data 07/22/23 18:11 07/22/23 18:11 Labs/Radiology: Radiology Impressions Abdomen/Pelvis CT 07/22/23 18:04 IMPRESSION: 1. No bowel obstruction or inflammatory process associated with the bowel. 2. No free air or significant free fluid in the abdomen or pelvis. 3. The appendix images normally. Laboratory Results WBC 6.59 10^3/uL (3.29-11.43) 07/22/23 18:11 RBC 4.60 10^6/uL (3.85-5.65) 07/22/23 18:11 Hgb 13.20 g/dL (11.27-16.99) 07/22/23 18:11 Hct 40.7 % (36-47) 07/22/23 18:11 MCV 88.5 fl (85-98) 07/22/23 18:11 MCH 28.7 pg (27-33) 07/22/23 18:11 MCHC 32.4 g/dL (30-55) 07/22/23 18:11 RDW 13.1 % (12.1-15.1) 07/22/23 18:11 Plt Count 232 10^3/cmm (157-399) 07/22/23 18:11 MPV 8.8 fL (7.4-10.4) 07/22/23 18:11 Neut % (Auto) 67.1 % 07/22/23 18:11 Lymph % (Auto) 24.0 % 07/22/23 18:11 [place] % (Auto) 5.8 % 07/22/23 18:11 Eos % (Auto) 2.0 % 07/22/23 18:11 Baso % (Auto) 0.6 % 07/22/23 18:11 Neut # (Auto) 4.43 10^3/uL (1.8-7.7) 07/22/23 18:11 Lymph # (Auto) 1.6 10^3/uL (0.8-4.8) 07/22/23 18:11 [place] # (Auto) 0.4 10^3/uL (0.2-0.9) 07/22/23 18:11 Eos # (Auto) 0.1 10^3/uL (0.0-0.8) 07/22/23 18:11 Baso # (Auto) 0.0 10^3/uL (0.0-0.1) 07/22/23 18:11 Nucleated RBC % (auto) 0 % 07/22/23 18:11 Nucleated RBCs # 0.0 /100WBC 07/22/23 18:11 Sodium 143 mmol/L (136-145) 07/22/23 18:11 Potassium 3.8 mmol/L (3.5-5.1) 07/22/23 18:11 Chloride 107 mmol/L (98-107) 07/22/23 18:11 Carbon Dioxide 27 mmol/L (22-29) 07/22/23 18:11 Anion Gap 12.8 (5-19) 07/22/23 18:11 BUN 7 mg/dL (6-20) 07/22/23 18:11 Creatinine 0.7 mg/dL (0.5-0.9) 07/22/23 18:11 GFR Calculation 86.6 mL/min (90-130) L 07/22/23 18:11 Glucose 102 mg/dL (65-115) 07/22/23 18:11 Calculated Osmolality 294 mOsm/kg (285-295) 07/22/23 18:11 Calcium 9.2 mg/dL (8.5-10.5) 07/22/23 18:11 Total Bilirubin 0.2 mg/dL (0.15-1.2) 07/22/23 18:11 AST 16 U/L (0-32) 07/22/23 18:11 ALT 13 U/L (0-33) 07/22/23 18:11 Alkaline Phosphatase 117 U/L (35-105) H 07/22/23 18:11 Total Protein 6.8 g/dL (6.6-8.7) 07/22/23 18:11 Albumin 4.2 g/dL (3.5-5.2) 07/22/23 18:11 Globulin 2.6 g/dL (1.3-4.6) 07/22/23 18:11 Lipase 23 U/L (13-60) 07/22/23 18:11 Urine Color Yellow (Yellow) 07/22/23 17:40 Urine Appearance Clear (CLEAR) 07/22/23 17:40 Urine pH 6 (5-7) 07/22/23 17:40 Ur Specific [place] 1.015 (1.005-1.030) 07/22/23 17:40 Urine Protein Neg (Negative) 07/22/23 17:40 Urine Glucose (UA) Norm (Normal) 07/22/23 17:40 Urine Ketones Negative (Negative) 07/22/23 17:40 Urine Blood Neg (Negative) 07/22/23 17:40 Urine Nitrate Negative (Negative) 07/22/23 17:40 Urine Bilirubin Neg (Negative) 07/22/23 17:40 Urine Urobilinogen Norm mg/dL (Negative) 07/22/23 17:40 Ur Leukocyte Esterase Negative (Negative) 07/22/23 17:40 All radiology interpretation(s) finalized by discharge Discharge Plan Discharge Patient Disposition: Home Clinical Impression: Hernia, ventral Qualifiers: Obstruction and gangrene presence: without obstruction or gangrene Qualified Code(s): K43.9 - Ventral hernia without obstruction or gangrene Condition: Stable Prescriptions: No Action quetiapine [Seroquel] 25 mg tablet 25 mg PO BEDTIME PRN (Reason: sleep) Qty: 30 2RF Rx Instructions: May take one tablet at bedtime as needed for sleep. lamotrigine 200 mg tablet 200 mg PO .morning 30 Days Qty: 30 4RF Rx Instructions: Take one tablet every morning acetaminophen [Tylenol Extra Strength] 500 mg Tablet 1,000 mg PO DAILY PRN (Reason: Pain) lisinopril 20 mg tablet 30 mg PO QAM Discharge Orders: Discharge ED (Routine); Ordered 07/22/23 Ordered By: Vance Ritter Referrals: Naheed Dias DO [Primary Care Provider] - Discharge Diet: Usual diet Discharge Activity: Limit activity as instructed Patient Instructions: Abdominal Hernia Activity Restrictions/Additional Instructions: Home and rest. Drink plenty of water and fluids. Acetaminophen or ibuprofen for pain. Ice or heat for further pain relief. Activity as tolerated. Follow- up with primary care as needed. Case management will contact you regarding follow-up with surgeon. Return to ED for new concerns such as worsening pain, inability to hold fluids down, no passing of gas or constipation. Coding Level of Care Code ED Crime Scene Evidence Technician for Galilea Jackman
--- NOTE | 2023-07-22 18:04 | CTR_ITS ---
PROCEDURE INFORMATION: Exam: CT Abdomen And Pelvis With Contrast Exam date and time: 07/22/2023 8:14 PM Age: 58 years old Clinical indication: Abdominal pain; Localized; Left lower quadrant (llq); Additional info: Rlq pain, TECHNIQUE: Imaging protocol: Computed tomography of the abdomen and pelvis with contrast. Radiation optimization: All CT scans at this facility use at least one of these dose optimization techniques: automated exposure control; mA and/or kV adjustment per patient size (includes targeted exams where dose is matched to clinical indication); or iterative reconstruction. Contrast material: OMNI 350; Contrast volume: 100 ml; Contrast route: INTRAVENOUS (IV); COMPARISON: CT abdomen pelvis w con* [id number] 11/29/2019 1:57 PM RADIATION DOSE METRICS: Total DLP (mGy-cm): 413 FINDINGS: Liver: Normal. No mass. Gallbladder and bile ducts: The gallbladder is absent. Pancreas: Normal. No ductal dilation. Spleen: Normal. No splenomegaly. Adrenal glands: Normal. No mass. Kidneys and ureters: Normal. No hydronephrosis. Stomach and bowel: Unremarkable. No obstruction. No mucosal thickening. Appendix: No evidence of appendicitis. Intraperitoneal space: Unremarkable. No free air. No significant fluid collection. Vasculature: Unremarkable. No abdominal aortic aneurysm. Lymph nodes: Unremarkable. No enlarged lymph nodes. Urinary bladder: Unremarkable as visualized. Reproductive: Unremarkable as visualized. Bones/joints: Unremarkable. No acute fracture. Soft tissues: There is a ventral hernia containing nonobstructed loops of small bowel measuring 38 mm at the neck. CT/CT abdomen pelvis w con* [id number] IMPRESSION: 1. No bowel obstruction or inflammatory process associated with the bowel. 2. No free air or significant free fluid in the abdomen or pelvis. 3. The appendix images normally.
[2023-07-22 18:12] LABS: Bilirubin Urine Neg (Negative); Blood Urine Neg (Negative); Glucose Urine UA Norm (Normal); Ketones Urine Negative (Negative); Leukocyte Esterase Urine Negative (Negative); Nitrate Urine Negative (Negative); Protein Urine Neg (Negative); Specific Gravity, Urine 1.015 (1.005-1.030); Urine Appearance Clear (CLEAR); Urine Color Yellow (Yellow); Urobilinogen Urine Norm (Negative); pH Urine 6 (5-7)
[2023-07-22 18:25] LABS: Basophils % 0.6 %; Eosinophils # 0.1 10^3/uL (0.0-0.8); Hematocrit 40.7 % (36-47); Lymphocytes # 1.6 10^3/uL (0.8-4.8); Mean Corpuscular HGB Conc 32.4 g/dL (30-55); Mean Corpuscular Hemoglobin 28.7 pg (27-33); Mean Corpuscular Volume 88.5 fl (85-98); Mean Platelet Volume 8.8 fL (7.4-10.4); Monocytes # 0.4 10^3/uL (0.2-0.9); Monocytes % 5.8 %; Neutrophils # 4.43 10^3/uL (1.8-7.7); Neutrophils % 67.1 %; Nucleated Red Blood Cells % 0 %; Platelet Count 232 10^3/cmm (157-399); Red Cell Distribution Width 13.1 % (12.1-15.1); White Blood Count 6.59 10^3/uL (3.29-11.43)
[2023-07-22 18:37] LABS: Alanine Aminotransferase 13 U/L (0-33); Albumin Level 4.2 g/dL (3.5-5.2); Alkaline Phosphatase 117 U/L (35-105); Anion Gap 12.8 (5-19); Aspartate Amino Transferase 16 U/L (0-32); Blood Urea Nitrogen 7 mg/dL (6-20); Calcium 9.2 mg/dL (8.5-10.5); Carbon Dioxide 27 mmol/L (22-29); Chloride 107 mmol/L (98-107); Globulin 2.6 g/dL (1.3-4.6); Glomerular Filtration Rate 86.6 mL/min (90-130); Glucose 102 mg/dL (65-115); Lipase 23 U/L (13-60); Osmolality Calculated 294 mOsm/kg (285-295); Potassium 3.8 mmol/L (3.5-5.1); Sodium 143 mmol/L (136-145); Total Bilirubin 0.2 mg/dL (0.15-1.2); Total Protein 6.8 g/dL (6.6-8.7)
[2023-07-22 19:12] VITALS: BP 139/83; PULSE 84; RESP 14; O2SAT 98
[2023-07-22] MEDS: morphine 4 mg/mL SDV 1 mL IVP (19:53)
[2023-07-22] MEDS: sodium chloride 0.9% 1,000 ML 999 ML IV (19:53)
[2023-07-22] MEDS: ondansetron 2 mg/ML SDV 2 mL 4 MG IVP (19:53)
[2023-07-22] MEDS: iohexol 350 mg/mL 500 mL Btl (per mL) IV (20:16)
[2023-07-22 20:30] VITALS: PULSE 76; O2SAT 92
[2023-07-22 21:39] VITALS: BP 131/82; PULSE 76; O2SAT 97
--- NOTE | 2023-07-24 04:14 | DCPLANNER ---
Addendum entered by Ricky Steele 07/27/23 11:09: There was not a referral sent successfully to general surgery. I resent message to general surgery on 07/27/23 at 11:10. Clinic to contact patient. Original Note: message sent to general surgery for a follow up-hernia
== END 2023-07-22 21:41 | disposition home or self-care (01) ==
PROVIDERS: Emergency Provider Nurse Practitioner Family; PCP Family Medicine
DX: K43.9 Ventral hernia without obstruction or gangrene (principal)
CPT/HCPCS: 36415; 74177; 80053; 81003; 83690; 85025; 96374; 96375; 99285; J2270; J2405; J7030; Q9967

== ENCOUNTER 2023-08-07 06:55 | Outpatient (CLI) | payer SELFPAY ==
--- NOTE | 2023-08-07 07:15 | MR_ITS ---
WS: [id number] MRI HEAD WITH CONTRAST TECHNIQUE: Sagittal T1, T2 axial, T2 axial FLAIR, axial susceptibility weighted imaging, axial diffus ion weighted images, and coronal T2 images were obtained. Pre and post-T1 axial and post T1 coronal i mages. ADC and FSPGR images. CLINICAL INFORMATION: G37.9 - Demyelinating disease of central nervous system, ... COMPARISON: CT 2021 MRI 2020 FINDINGS: No evidence of restricted diffusion to suggest acute ischemia. Ventricular system and basilar cistern s are patent. Mild patchy supratentorial white matter changes similar to previous. Stable lesion in t he LEFT midbrain. Stable subtle T2 signal abnormality involving the LEFT mesial temporal lobe and LEF T parahippocampal gyrus. No evidence of progression compared to previous. No enhancing lesions to ind icate active disease. No significant parenchymal volume loss. No significant atrophy of the corpus callosum. Mild T1 hypoin tense lesion load. LEFT midbrain lesion demonstrates low T1 signal. Normal posterior fossa. Normal vascular flow voids at the skull base. Mucosal thickening in the paran cherie sinuses. Mastoid air cells are well aerated. Normal dural venous sinuses. No abnormal intracrani al enhancement. IMPRESSION: 1. No evidence of restricted diffusion to suggest acute ischemia. 2. Stable mild patchy supratentorial white matter lesions with stable LEFT midbrain lesion. No evide nce of progression. 3. No abnormal gadolinium enhancement. 4. No atrophy of the corpus callosum. No significant parenchymal volume loss. 5. No other remarkable changes.
[2023-08-07] MEDS: gadobenate dimeglumine 20 mL vial IV (07:51)
== END 2023-08-07 06:56 | disposition home or self-care (01) ==
LOC: RAD 06:56
PROVIDERS: PCP Family Medicine; Visit Provider Specialist
DX: G37.9 Demyelinating disease of central nervous system, unspecified (principal)
CPT/HCPCS: 70553; A9577

== ENCOUNTER 2023-08-27 08:09 | Day surgery (SDC) | payer SELFPAY ==
[2023-08-27] VITALS (16 sets, daily range): BP systolic 113–143; BP diastolic 68–96; PULSE 60–87; RESP 15–21; TEMP 36.1–36.4; O2SAT 92–100; BMI 26.5
[2023-08-27] MEDS: sodium chloride 0.9% 1,000 ML 30 ML IV (08:49)
--- NOTE | 2023-08-27 09:06 | P.ANESASSM_ITS ---
Pre-Anesthetic Assessment Height/Weight: Height 1.47 m Weight 57.606 kg Temp Pulse Resp BP Pulse Ox O2 Del Method 97.1 F L 78 18 130/81 98 Room Air 08/27/23 08:50 08/27/23 08:50 08/27/23 08:50 08/27/23 08:50 08/27/23 08:50 08/27/23 08:50 Operation Date: 08/27/23 10:35 Proposed Procedures p 90064 lap recurrent incisional hernia repair with mesh k43.2(Not Applicable) - Ayaan Vazquez DO Familial anesthetic complications: None Was Beta Sebastien taken within 24 hours: N/A Was Clonidine taken within 24 hours: N/A Last intake: Intake Last Liquid Date 08/26/23 Last Liquid Time 19:00 Last Solid Date 08/26/23 Last Solid Time 19:00 Social No alcohol and No tobacco Exam alert, oriented x 3, clear to auscultation bilaterally and regular rate & rhythm Airway Mallampati: Class II Dentition: false CV/HEM Hypertension Neuropsych Cerebrovascular Accident suggestion of multiple sclerosis in history - avoid hyperthermia and succinylcholine Anesthetic Plan ASA status: 3 Anesthesia: General Risk of > 500 ml blood loss (7ml/kg in children): No Medications/Allergies Home Medications Medication Instructions Recorded Confirmed Last Taken Type acetaminophen 500 mg tablet 1,000 mg PO DAILY PRN Pain 11/21/20 08/26/23 11/21/20 06:00 History (Tylenol Extra Strength) lisinopril 20 mg tablet 30 mg PO QAM 11/20/22 08/26/23 08/26/23 History lamotrigine 200 mg tablet 200 mg PO .morning 30 days #30 tabs 08/11/23 08/26/23 08/26/23 Rx quetiapine 25 mg tablet (Seroquel) 25 mg PO BEDTIME PRN sleep #30 tabs 08/11/23 08/26/23 08/25/23 Rx Allergies Allergy/AdvReac Type Severity Reaction Status Date / Time aspirin Allergy Severe bruising Verified 08/26/23 12:02 all over body bee venom protein (honey bee) Allergy Intermediate ALGY-Joint Verified 08/26/23 12:02 Pain diphenhydramine Allergy Intermediate ADR-Drowsy Verified 08/26/23 12:02 [From Benadryl] Current Medications Generic Name Dose Route Start Last Admin Trade Name Ladariusq PRN Reason Stop Dose Admin Sodium Chloride 1,000 mls @ 30 mls/hr 08/27/23 08:30 08/27/23 08:49 Sodium Chloride 0.9% IV 08/28/23 08:29 30 mls/hr .Q24H PEDRO Administration PFSH Anesthesia Medical History Bipolar I disorder, most recent episode mixed, severe with psychotic features Diagnosed in July 2013 Psychiatric care Abdominal wall bulge Post-traumatic stress disorder, chronic Surgical History History of ventral hernia repair (~11/2019) History of delivery H/O foot surgery History of tubal ligation History of hysterectomy History of cholecystectomy Family History Sister Cancer Mother Diabetes Denies family history of Anesthesia complication Bleeding disorder Social History Smoking and tobacco/nicotine status: never used tobacco/nicotine Alcohol intake: never Substance/Drug Use: never Household members: significant other Marital status: Current occupational status: employed Current occupation: [employer] Anesthesia Cardiac Studies: Echocardiogram Ultrasound 03/23/20 Cardiac Event Monitor 03/26/20
--- NOTE | 2023-08-27 09:20 | W.PM.OPSUD ---
Surgery/Procedure H&P Update DATE OF PROCEDURE: August 27, 2023 DATE H&P PERFORMED: 08/03/23 H&P UPDATE INFORMATION: I have reviewed H&P completed within last 30 days, I have examined patient prior to procedure and No changes to prior documentation PLANNED PROCEDURE: Operation Date: 08/27/23 10:35 Proposed Procedures p 87075 lap recurrent incisional hernia repair with mesh k43.2(Not Applicable) - Ayaan Vazquez, DO
[2023-08-27] MEDS: ceFAZolin 2,000 MG in sodium chloride 0.9% (plus) 50 ML 100 MG IV (09:58)
[2023-08-27] MEDS: BUPivacaine 0.25% INJ 10 mL INJECTION (10:50)
[2023-08-27] MEDS: lidocaine-epi 2% PF 1:200,000 20 mL SDV 10 ML XX (10:50)
--- NOTE | 2023-08-27 10:57 | PM.OP ---
Operative Report Date of procedure: August 27, 2023 Pre-op diagnosis: Recurrent incisional hernias x 2 Post-op diagnosis: same Procedure done: Laparoscopic repair of recurrent incisional hernias x 2 with mesh Implants: 6 inch round Ventralight mesh Specimens removed/disposition: Hernia sac Surgeon: Ayaan Vazquez DO Anesthesia: General and Local Estimated blood loss (mL): 5 Complications: None apparent Brief History: This very pleasant 58-year-old female presented to my office with an abdominal wall bulge. She had a history of hernia repair in the past. CT showed 2 recurrent incisional hernias in close approximation to each other. Laparoscopic repair with mesh was indicated. The risk and benefits were explained and documented. Procedure: Patient was wheeled operative room placed on the OR table in supine position. General endotracheal ovation was achieved by the department of anesthesia. The abdomen was inspected prepped and draped in usual sterile fashion. A timeout was performed. All present were in agreement. A 5 mm incision was made after localization with 2% lidocaine with epinephrine in the left upper quadrant over Nogueira's point. A Veress needle was used to achieve intra-abdominal insufflation to 15 mmHg. A 5 mm trocar was then placed through the incision under Optiview. Under direct visualization a 12 mm trocar was placed into the left lower quadrant. There were 2 ventral hernias identified containing omental fat. Omental fat was taken down using the LigaSure. The hernia sacs were then taken out using the LigaSure as well. The inferior most hernia measured 1.8 cm in greatest diameter, and the. Transverse dimension. The inferior most hernia measured 3.4 cm in greatest diameter, in the transverse dimension as well. A 6 inch round Ventralight mesh was chosen and placed to the abdomen via the left lower quadrant port. Jefferson-Margaret was used to bring the mesh up through the fascia in between the 2 hernias. The mesh was tacked in place in a double crown fashion using a secure strap. There was 5 cm of overlap of mesh around each hernia. The mesh was then removed via the left lower quadrant port. The 12 mm port was then removed and the fascia was closed with a Jefferson Alcantara and 0 Vicryl suture in a [id number] fashion. Skin was closed with 4-0 Monocryl in an interrupted subcuticular fashion. Skin glue was applied. Patient tolerated procedure well.
[2023-08-27] MEDS: fentaNYL 50 mcg/mL INJ 2mL IVP (11:10)
[2023-08-27] MEDS: HYDROmorphone 1 mg/mL INJ 1 mL 0.25 MG IVP (11:46)
[2023-08-27] MEDS: ondansetron 2 mg/ML SDV 2 mL 4 MG IVP (11:46)
[2023-08-27] MEDS: HYDROcodone-acetaminophen 7.5-325 mg Tablet 1 TAB PO (12:05)
[2023-08-27] MEDS: ketorolac 30 mg/mL INJ IVP (12:27)
--- NOTE | 2023-08-27 13:40 | ANE.PACU2 ---
Inpatient post-anesthesia follow up: Airway intact: Yes Vital signs: Temperature 97.4 F Pulse Rate 60 Respiratory Rate 18 Blood Pressure 126/96 Pulse Oximetry 95 Oxygen Delivery Me thod Room Air Oxygen Flow Rate 2 Fraction of Inspir ed Oxygen Hydration adequate: Yes Nausea and vomiting: No Pain level: 1 Mental status: Baseline
== END 2023-08-27 13:40 | disposition home or self-care (01) ==
PROVIDERS: PCP Family Medicine; Visit Provider Surgery
PROC: 0WQF4ZZ Repair Abdominal Wall, Percutaneous Endoscopic Approach (ICD-10-PCS; CPT 49613; principal; 2023-08-27 10:35)
DX: K43.2 Incisional hernia without obstruction or gangrene (principal); I10 Essential (primary) hypertension; Z86.73 Personal history of transient ischemic attack (TIA), and cerebral infarction without residual deficits; K59.00 Constipation, unspecified
CPT/HCPCS: 49613; 88302; J0690; J1100; J1170; J1885; J2250; J2405; J2704; J2710; J3010; J3490; J7030

== ENCOUNTER → 2023-10-07 08:54 | Outpatient (BNVA) | payer OTHER, SELFPAY | PROVIDERS: PCP Family Medicine; Visit Provider Nurse Practitioner Psychiatric/Mental Health | DX: Z79.899 Other long term (current) drug therapy (principal); F31.64 Bipolar disorder, current episode mixed, severe, with psychotic features; F43.12 Post-traumatic stress disorder, chronic; G37.9 Demyelinating disease of central nervous system, unspecified; H55.09 Other forms of nystagmus | CPT/HCPCS: 80061; 83036 ==

== ENCOUNTER 2023-12-25 09:49 | Emergency (ER) | payer SELFPAY ==
--- NOTE | 2023-12-25 10:28 | XRR_ITS ---
PROCEDURE INFORMATION: Exam: XR Right Hand Exam date and time: 12/25/2023 10:42 AM Age: 58 years old Clinical indication: Injury or trauma; Fall; Blunt trauma (contusions or hematomas); Wrist; Right; Additional info: Fall/deformity to fingers TECHNIQUE: Imaging protocol: Radiologic exam of the right hand. Views: 3 or more views. COMPARISON: US soft tissue/extremity [id number] 06/30/2019 3:08 PM FINDINGS: Bones/joints: Essentially nondisplaced comminuted fractures through the base of the 3rd through 5th proximal phalanges. Soft tissues: Normal. XR/XR hand RT min 3V* [id number] IMPRESSION: Fractures of 3 fingers.
--- NOTE | 2023-12-25 10:30 | W.ED.EXTPRO ---
Documented by User: GALDYS Valencia 12/25/23 16:36 HPI - Extremity Problem General: Chief complaint: Extremity Injury, Upper Stated complaint: right finger injury Time Seen by Provider: 12/25/23 09:57 Source: patient Mode of arrival: ambulatory Limitations: no limitations History of Present Illness: Patient is a 58 y/o female who presents to the ED due to right hand injury onset just prior to arrival. Patient states she had a trip and fall at home and tried to catch herself, suffering injuries to her right fingers. She arrives with obvious deformity to her right ring finger, and also has pain and contracture of the 2nd-5th digits. She cannot make a fist or extend the fingers due to pain. She has not taken anything for her pain at this time. She has no previous injuries to that hand. At this time she has no focal sensory or distal neurological deficit. No other injuries to note. She is left hand dominant. MD Complaint: extremity pain Onset (ago): minute(s) Pain Consistency: constant Location: right and upper extremity Severity scale (1-10): 10 Radiation: proximal Relieving factors: nothing Exacerbating factors: range of motion and palpation Associated symptoms: Reports no associated symptoms; Deny chest pain, fever(s) or rash Context: other (fall) Review of Systems General: Reports: 10 or more systems reviewed and unremarkable except in HPI and below Const: Reports: other (fall); Denies: fever(s) or chills Card: Denies: chest pain Resp: Denies: dyspnea or productive cough GI: Denies: abdominal pain, nausea, vomiting or diarrhea : Denies: flank pain Musc: Reports: extremity pain (right 2nd-5th fingers) and limited range of motion; Denies: neck pain, back pain, extremity swelling, joint pain, joint swelling, joint redness, joint warmth or muscle weakness Skin/Breast: Denies: rash Neuro: Denies: headache(s), numbness in extremities or weakness in extremities PFS ED PFSH: Medical History 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 associated with central vestibular disorder Bipolar I disorder, most recent episode mixed, severe with psychotic features Diagnosed in July 2013 Psychiatric care Abdominal wall bulge Post-traumatic stress disorder, chronic Surgical History S/P laparoscopic hernia repair History of ventral hernia repair (~11/2019) History of delivery H/O foot surgery History of tubal ligation History of hysterectomy History of cholecystectomy Family History Sister Cancer Mother Diabetes Denies family history of Anesthesia complication Bleeding disorder Social History Smoking and tobacco/nicotine status: never used tobacco/nicotine Alcohol intake: never Substance/Drug Use: never Household members: significant other Marital status: Current occupational status: employed Current occupation: [employer] Physical Exam Const: COMMON NORMALS: no acute distress, patient oriented x3, no limitations, healthy appearing, alert and well nourished HENMT: COMMON NORMALS: normocephalic and atraumatic HEAD & SCALP: normocephalic and atraumatic Neck/C-Spine: COMMON NORMALS: full ROM, supple and no meningeal signs Resp: COMMON NORMALS: normal respiratory effort, No use of accessory muscles and clear to auscultation bilaterally AUSCULTATION: clear to auscultation bilaterally Cardio: COMMON NORMALS: regular rate and regular rhythm RATE: regular rate RHYTHM: regular rhythm Extremity: COMMON NORMALS: capillary refill normal, no joint enlargement and no clubbing, cyanosis or edema NARRATIVE EXTREMITY EXAM: There is tenderness to palpation of patient's right 2nd-5th digits. The ring finger has lateral angulation at the PIP joint. Moderately diminished ROM at the 2nd-5th DID and PIP. No TTP of the hand. No distal neurological deficit and no focal sensory deficit. No open wounds. Neuro: COMMON NORMALS: patient oriented x3, moves all extremities, no focal motor deficits and no sensory deficits noted SENSORIUM/ORIENTATION: Yes alert MENINGEAL SIGNS: Yes no meningeal signs Skin: COMMON NORMALS: no rashes or lesions noted GENERAL SKIN EXAM: no rashes or lesions noted Course Vital Signs: Vital signs: Vital Signs Temperature 97.9 F 12/25/23 10:36 Pulse Rate 80 12/25/23 10:36 Respiratory Rate 18 12/25/23 10:36 Blood Pressure 136/63 12/25/23 10:36 Pulse Oximetry 95 12/25/23 10:36 Oxygen Delivery Me thod Room Air 12/25/23 10:36 MDM - Extremity (Nontraumatic) Medical Decision Making Patient presented with right hand injury after falling. There were obvious deformities of her fingers on initial presentation, an x-ray did reveal fractures of the base of the third fourth and fifth proximal metacarpal. There was angulation noted of these fingers, and a digital block was performed and her fingers were reduced as best as possible. They were then placed in an ulnar gutter splint and she is referred to orthopedics for further evaluation. Pain medication sent home for pain control, and reasons to return are discussed. Case discussed with Dr. Kraus, who agrees with disposition at this time. Lab Data Radiology Impressions Hand X-Ray 12/25/23 10:28 IMPRESSION: Fractures of 3 fingers. All radiology interpretation(s) finalized by discharge Discharge Plan Discharge Patient Disposition: Home Clinical Impression: Closed fracture of multiple phalanges of fingers Condition: Stable Prescriptions: New hydrocodone-acetaminophen 7.5-325 mg tablet 1 tab PO Q8H PRN (Reason: pain) Qty: 20 0RF No Action lamotrigine [Lamictal] 25 mg tablet 50 mg PO .morning Qty: 60 3RF Rx Instructions: Take two tablets every morning with 200 mg tablet, total dose 250 mg. lamotrigine 200 mg tablet 200 mg PO .morning 30 Days Qty: 30 4RF Rx Instructions: Take one tablet every morning risperidone [Risperdal] 2 mg tablet 2 mg PO .8 pm Qty: 30 3RF Rx Instructions: Take one tablet at 8 pm risperidone [Risperdal] 0.5 mg tablet 0.5 mg PO .morning Qty: 30 3RF Rx Instructions: Take one tablet every morning acetaminophen [Tylenol Extra Strength] 500 mg Tablet 1,000 mg PO DAILY PRN (Reason: Pain) lisinopril 20 mg tablet 30 mg PO QAM Discharge Orders: Discharge ED (Routine); Ordered 12/25/23 Ordered By: Hung Rojo Referrals: Naheed Dias DO [Primary Care Provider] - Discharge Diet: Usual diet Discharge Activity: Limit activity as instructed Patient Instructions: Finger Fracture (ED), Opioid Safety, Pain Management Activity Restrictions/Additional Instructions: Pain medications as prescribed. Follow up with orthopedics. Avoid re-injury. Return with any new or worsening symptoms. 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 Bipolar I disorder, most recent episode mixed, severe with psychotic features Diagnosed in July 2013 Psychiatric care Abdominal wall bulge Post-traumatic stress disorder, chronic Surgical History S/P laparoscopic hernia repair History of ventral hernia repair (~11/2019) History of delivery H/O foot surgery History of tubal ligation History of hysterectomy History of cholecystectomy Family History Sister Cancer Mother Diabetes Denies family history of Anesthesia complication Bleeding disorder Social History Smoking and tobacco/nicotine status: never used tobacco/nicotine Alcohol intake: never Substance/Drug Use: never Household members: significant other Marital status: Current occupational status: employed Current occupation: [employer] Vital Signs: Vital signs: Vital Signs Temperature 97.9 F 12/25/23 10:36 Pulse Rate 80 12/25/23 10:36 Respiratory Rate 18 12/25/23 10:36 Blood Pressure 136/63 12/25/23 10:36 Pulse Oximetry 95 12/25/23 10:36 Oxygen Delivery Me thod Room Air 12/25/23 10:36 MDM - Extremity (Nontraumatic) Medical Decision Making Patient presented with right hand injury after falling. There were obvious deformities of her fingers on initial presentation, an x-ray did reveal fractures of the base of the third fourth and fifth proximal metacarpal. There was angulation noted of these fingers, and a digital block was performed and her fingers were reduced as best as possible. They were then placed in an ulnar gutter splint and she is referred to orthopedics for further evaluation. Pain medication sent home for pain control, and reasons to return are discussed. Case discussed with Dr. Kraus, who agrees with disposition at this time. Chart reviewed and patient discussed with midlevel. Agree with assessment and plan. Lab Data Radiology Impressions Hand X-Ray 12/25/23 10:28 IMPRESSION: Fractures of 3 fingers. Discharge Plan Discharge Patient Disposition: Home Clinical Impression: Closed fracture of multiple phalanges of fingers Condition: Stable Prescriptions: New hydrocodone-acetaminophen 7.5-325 mg tablet 1 tab PO Q8H PRN (Reason: pain) Qty: 20 0RF No Action lamotrigine [Lamictal] 25 mg tablet 50 mg PO .morning Qty: 60 3RF Rx Instructions: Take two tablets every morning with 200 mg tablet, total dose 250 mg. lamotrigine 200 mg tablet 200 mg PO .morning 30 Days Qty: 30 4RF Rx Instructions: Take one tablet every morning risperidone [Risperdal] 2 mg tablet 2 mg PO .8 pm Qty: 30 3RF Rx Instructions: Take one tablet at 8 pm risperidone [Risperdal] 0.5 mg tablet 0.5 mg PO .morning Qty: 30 3RF Rx Instructions: Take one tablet every morning acetaminophen [Tylenol Extra Strength] 500 mg Tablet 1,000 mg PO DAILY PRN (Reason: Pain) lisinopril 20 mg tablet 30 mg PO QAM Discharge Orders: Discharge ED (Routine); Ordered 12/25/23 Ordered By: Hung Rojo Referrals: Naheed Dias DO [Primary Care Provider] - Discharge Diet: Usual diet Discharge Activity: Limit activity as instructed Patient Instructions: Finger Fracture (ED), Opioid Safety, Pain Management Activity Restrictions/Additional Instructions: Pain medications as prescribed. Follow up with orthopedics. Avoid re-injury. Return with any new or worsening symptoms. 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
[2023-12-25 10:36] VITALS: BP 136/63; PULSE 80; RESP 18; TEMP 36.6; O2SAT 95; BMI 24.4
[2023-12-25] MEDS: ketorolac 60 mg/2 mL INJ IM (11:17)
--- NOTE | 2023-12-30 07:41 | DCPLANNER ---
message sent to ortho for er f/u
== END 2023-12-25 13:19 | disposition home or self-care (01) ==
PROVIDERS: Emergency Provider Physician Assistant; PCP Family Medicine
DX: S62.642A Nondisplaced fracture of proximal phalanx of right middle finger, initial encounter for closed fracture (principal); S62.644A Nondisplaced fracture of proximal phalanx of right ring finger, initial encounter for closed fracture; S62.646A Nondisplaced fracture of proximal phalanx of right little finger, initial encounter for closed fracture; W01.0XXA Fall on same level from slipping, tripping and stumbling without subsequent striking against object, initial encounter
CPT/HCPCS: 73130; 96372; 99284; J1885

== ENCOUNTER 2024-01-04 06:00 | Outpatient (CLI) | payer SELFPAY | END 2024-01-04 23:59 | disposition home or self-care (01) | LOC: SOT 01-05 10:42 | PROVIDERS: Visit Provider Specialist | DX: Z46.89 Encounter for fitting and adjustment of other specified devices (principal); S62.302D Unspecified fracture of third metacarpal bone, right hand, subsequent encounter for fracture with routine healing; S62.304D Unspecified fracture of fourth metacarpal bone, right hand, subsequent encounter for fracture with routine healing; S62.306D Unspecified fracture of fifth metacarpal bone, right hand, subsequent encounter for fracture with routine healing; X58.XXXD Exposure to other specified factors, subsequent encounter | CPT/HCPCS: L3984 ==

== ENCOUNTER → 2024-01-04 09:00 | Outpatient (BNVA) | payer SELFPAY | PROVIDERS: PCP Family Medicine; Referring Provider Physician Assistant; Visit Provider Nurse Practitioner | DX: S62.642A Nondisplaced fracture of proximal phalanx of right middle finger, initial encounter for closed fracture; S62.644A Nondisplaced fracture of proximal phalanx of right ring finger, initial encounter for closed fracture; S62.646A Nondisplaced fracture of proximal phalanx of right little finger, initial encounter for closed fracture; W19.XXXA Unspecified fall, initial encounter; Y93.02 Activity, running | CPT/HCPCS: 73130 ==

== ENCOUNTER → 2024-01-18 09:29 | Outpatient (BNVA) | payer SELFPAY | PROVIDERS: PCP Family Medicine; Visit Provider Nurse Practitioner | DX: S62.614D Displaced fracture of proximal phalanx of right ring finger, subsequent encounter for fracture with routine healing (principal); S62.612D Displaced fracture of proximal phalanx of right middle finger, subsequent encounter for fracture with routine healing; S62.616D Displaced fracture of proximal phalanx of right little finger, subsequent encounter for fracture with routine healing; W19.XXXD Unspecified fall, subsequent encounter; Y93.02 Activity, running | CPT/HCPCS: 73130; 99024 ==

== ENCOUNTER → 2024-02-01 14:09 | Outpatient (BNVA) | payer SELFPAY | PROVIDERS: PCP Family Medicine; Visit Provider Nurse Practitioner | DX: S62.616D Displaced fracture of proximal phalanx of right little finger, subsequent encounter for fracture with routine healing (principal); S62.612D Displaced fracture of proximal phalanx of right middle finger, subsequent encounter for fracture with routine healing; S62.614D Displaced fracture of proximal phalanx of right ring finger, subsequent encounter for fracture with routine healing; W19.XXXD Unspecified fall, subsequent encounter; Y93.02 Activity, running | CPT/HCPCS: 73130 ==

== ENCOUNTER → 2024-02-22 13:31 | Outpatient (BNVA) | payer SELFPAY | PROVIDERS: PCP Family Medicine; Visit Provider Nurse Practitioner | DX: S62.616D Displaced fracture of proximal phalanx of right little finger, subsequent encounter for fracture with routine healing (principal); S62.612D Displaced fracture of proximal phalanx of right middle finger, subsequent encounter for fracture with routine healing; S62.614D Displaced fracture of proximal phalanx of right ring finger, subsequent encounter for fracture with routine healing; W19.XXXD Unspecified fall, subsequent encounter; Y93.02 Activity, running | CPT/HCPCS: 73130 ==

== ENCOUNTER 2024-04-27 09:04 | Outpatient (CLI) | payer OTHER, SELFPAY ==
--- NOTE | 2024-04-27 09:10 | MM_ITS ---
WS: [id number] VIEWS: MLO and CC views both breasts. 3D digital tomosynthesis is also included in this exam. Comparison made with prior exam of 05/06/2016, 04/18/2015, 04/12/2020, 09/03/2018, 09/06/2014, 04/16/2012, 03/26/2010. 04/24/2023.. Findings: The breasts are extremely dense, which lowers the sensitivity of mammography. No sign of suspicious mass, tumor calcification or architectural distortion. Stable appearing nodules in both breasts. MM/MM scr BI tomosynthesis [id number] Impression: BI-RADS: 2 - Benign FOLLOW-UP: 1 Year Follow-up This mammogram was also analyzed by the Computer Aided Detection System R2 Imag e Music Video Director.
== END 2024-04-27 09:05 | disposition home or self-care (01) ==
LOC: RAD 09:04
PROVIDERS: PCP Family Medicine; Visit Provider Family Medicine
DX: Z12.31 Encounter for screening mammogram for malignant neoplasm of breast (principal); R92.333 Mammographic heterogeneous density, bilateral breasts
CPT/HCPCS: 77063; 77067

== ENCOUNTER 2024-11-25 11:36 | Outpatient (CLI) | payer OTHER, SELFPAY ==
--- NOTE | 2024-11-25 11:45 | XR_ITS ---
WS: [email or web address] Lumbar spine, 5 views including both obliques, 11/25/2024 Clinical Data: LOW BACK PAIN Comparison: None. Findings: No compression fractures or subluxation is seen. No disc space narrowing is seen. The transverse processes and SI joints are normal. There is spurring of all the lumbar vertebral bodies. The oblique images show no spondylolysis. There are cholecystectomy clips in the right upper quadrant and other surgical clips right of the lumbar spine. XR/XR lumbar spine min 4V [id number] Impression: 1. Osteoarthritis of the lumbar vertebral bodies. 2. No spondylolysis on oblique images.
== END 2024-11-25 11:37 | disposition home or self-care (01) ==
LOC: RAD 11:39
PROVIDERS: PCP Family Medicine; Visit Provider Family Medicine
DX: M47.816 Spondylosis without myelopathy or radiculopathy, lumbar region (principal)
CPT/HCPCS: 72110

== ENCOUNTER 2025-01-09 10:46 | Outpatient (CLI) | payer SELFPAY ==
--- NOTE | 2025-01-09 10:55 | MR_ITS ---
WS: [id number] MRI LUMBAR SPINE NONCONTRAST TECHNIQUE: Sagittal T1, T2 and STIR imaging. Axial T1 and T2 imaging. CLINICAL INFORMATION: ARTHROPATHY OF LUMBAR FACET/LOW BACK PAIN COMPARISON: None. FINDINGS: Mild lumbar curve. No acute compression. Mild disc bulging L1-2. No high-grade central canal stenosis. Endplate Schmorl's node at L1-2 with edema. L1-L2: Mild annular bulging. Mild facet arthropathy with small facet effusions. Mild LEFT foraminal narrowing. L2-L3: No significant disc bulging. Mild facet arthropathy. Spinal canal and foramen are patent. L3-L4: Mild annular bulging. Mild facet arthropathy. Spinal canal and foramen are patent. L4-L5: Mild annular bulging. Mild facet arthropathy. Mild LEFT foraminal narrowing. Spinal canal is patent. L5-S1: No significant disc bulging. Mild facet arthropathy. Spinal canal and foramen are patent. Visualized pelvic bony structures: Normal. Paravertebral soft tissues: Normal. MR/MR lumbar spine wo con* [id number] IMPRESSION: 1. Mild lumbar curve. No acute compression. No high-grade central canal stenos is. 2. Mild annular bulging L1-2. Mild LEFT foraminal narrowing. 3. Inferior endplate Schmorl's node L1-2 with edema. 4. Mild facet arthropathy L1-2 with small bilateral facet effusions compatible with synovitis. This can be seen with inflammatory or degenerative etiologies 5. LEFT L4-5 foraminal narrowing. 6. Mild facet arthropathy L3-L5. 7. No other acute findings.
== END 2025-01-09 10:47 | disposition home or self-care (01) ==
PROVIDERS: Visit Provider Family Medicine
DX: M51.369 Other intervertebral disc degeneration, lumbar region without mention of lumbar back pain or lower extremity pain (principal); M51.46 Schmorl's nodes, lumbar region; M47.816 Spondylosis without myelopathy or radiculopathy, lumbar region
CPT/HCPCS: 72148

== ENCOUNTER 2025-01-25 07:20 | Outpatient (CLI) | payer SELFPAY ==
--- NOTE | 2025-01-25 07:25 | USR_ITS ---
PROCEDURE INFORMATION: Exam: US Duplex Bilateral Lower Extremity Arteries Exam date and time: 01/25/2025 7:55 AM Age: 59 years old Clinical indication: Pain; Leg, lower; Bilateral; Additional info: Bilateral leg pain TECHNIQUE: Imaging protocol: Real-time ultrasound scan of the arteries of the bilateral lower extremities with 2-D guerrier scale, color Doppler flow and spectral waveform analysis. Images documented and saved. COMPARISON: US soft tissue/extremity [id number] 06/30/2019 3:08 PM FINDINGS: Right external iliac artery: 86.2-89.1 cm/sec, triphasic. Right common femoral artery: 63 cm/sec, triphasic. Right superficial femoral artery: Proximal SFA 102 cm/sec, triphasic. Mid SFA 84 cm/sec, triphasic. Distal SFA 65 cm/sec, triphasic. Right popliteal artery: Popliteal 53 cm/sec, triphasic. Right calf/foot arteries: VOLLEYBALL COMMENTATOR 115 cm/sec, triphasic. Dorsalis pedis 93 cm/sec, triphasic. Left external iliac artery: 84.3-62.2 cm/sec, triphasic. Left common femoral artery: 91 cm/sec, triphasic. Left superficial femoral artery: Proximal SFA 88 cm/sec, triphasic. Mid SFA 77 cm/sec, triphasic. Distal 61 SFA cm/sec, triphasic. Left popliteal artery: Popliteal 52 cm/sec, triphasic. Left calf/foot arteries: VOLLEYBALL COMMENTATOR 88 cm/sec, triphasic. Distal VOLLEYBALL COMMENTATOR cm/sec, triphasic. Dorsalis pedis 82 cm/sec, triphasic. Right ankle-brachial index: 1.13. Left ankle-brachial index: 1.16. US/CV arterial duplex [facility] [id number] IMPRESSION: Normal. No hemodynamically significant stenosis by peak systolic velocity criteria.
== END 2025-01-25 07:21 | disposition home or self-care (01) ==
LOC: RAD 07:21
PROVIDERS: PCP Family Medicine; Visit Provider Family Medicine
DX: M79.605 Pain in left leg (principal); M79.604 Pain in right leg; I70.201 Unspecified atherosclerosis of native arteries of extremities, right leg; I70.202 Unspecified atherosclerosis of native arteries of extremities, left leg
CPT/HCPCS: 93925

== ENCOUNTER 2025-03-02 12:38 | Outpatient (CLI) | payer SELFPAY ==
--- NOTE | 2025-03-02 12:46 | XR_ITS ---
WS: [id number] Exam: XR ribs LT 2V* [id number] Date/Time of Exam: 03/02/2025 12:48 PM Reason For Exam: LEFT SIDED RIB PAIN No acute rib fracture. The LEFT lung is fully inflated and clear. No pleural or pulmonary reactive changes. XR/XR ribs LT 2V* [id number] IMPRESSION: 1. Negative LEFT rib study.
== END 2025-03-02 12:39 | disposition home or self-care (01) ==
LOC: RAD 12:41
PROVIDERS: PCP Family Medicine; Visit Provider Family Medicine
DX: R07.81 Pleurodynia (principal)
CPT/HCPCS: 71100

== ENCOUNTER 2025-04-26 13:14 | Outpatient (CLI) | payer OTHER, SELFPAY ==
--- NOTE | 2025-04-26 13:19 | XRR_ITS ---
PROCEDURE INFORMATION: Exam: XR Chest Exam date and time: 04/26/2025 1:28 PM Age: 60 years old Clinical indication: Cough, cp & trouble breathing x one month. ; Additional info: Subacute cough TECHNIQUE: Imaging protocol: Radiologic exam of the chest. Views: 2 views. COMPARISON: CR XR chest 2V* [id number] 01/21/2023 4:27 PM FINDINGS: Lungs: Unremarkable. No consolidation. Pleural spaces: Unremarkable. No pleural effusion. No pneumothorax. Heart/Mediastinum: Unremarkable. No cardiomegaly. Bones/joints: Unremarkable. XR/XR chest 2V* [id number] IMPRESSION: No acute findings.
== END 2025-04-26 13:15 | disposition home or self-care (01) ==
LOC: RAD 13:15
PROVIDERS: PCP Family Medicine; Visit Provider Family Medicine
DX: R05.2 Subacute cough (principal)
CPT/HCPCS: 71046

== ENCOUNTER → 2025-05-22 12:37 | Outpatient (BNVA) | payer OTHER, SELFPAY | PROVIDERS: PCP Family Medicine; Visit Provider Nurse Practitioner | DX: R53.83 Other fatigue (principal) | CPT/HCPCS: 87071; 87400; 87426; 87880 ==

== ENCOUNTER 2025-05-30 11:26 | Outpatient (CLI) | payer OTHER, SELFPAY ==
--- NOTE | 2025-05-30 11:35 | XR_ITS ---
WS: [id number] Chest 2 views, 05/30/2025 Clinical Data: SUBACUTE COUGH Comparison: Two-view chest, 04/26/2025 Findings: No nodules, masses or effusions are seen. The heart is normal. The pulmonary vascularity is not increased. No pneumonia or pneumothorax is seen. There are cholecystectomy clips in the right upper quadrant. XR/XR chest 2V* [id number] Impression: Negative chest.
== END 2025-05-30 11:27 | disposition home or self-care (01) ==
LOC: RAD 11:29
PROVIDERS: PCP Family Medicine; Visit Provider Family Medicine
DX: R05.2 Subacute cough (principal); Z90.49 Acquired absence of other specified parts of digestive tract; Z96.89 Presence of other specified functional implants
CPT/HCPCS: 71046